=== PATIENT | female | born 1965 | race American Indian/Alaskan Native ===

== ENCOUNTER 2018-12-19 19:01 | Inpatient (IN) | payer MEDICARE, OTHER ==
[~2018-12-19] VITALS: Ht 154.9 cm; Wt 87.5 kg
--- NOTE | 2018-12-19 18:49 | NUR ---
I have received report from Aracelis QUARLES from [facility] and had the opportunity to ask questions and assume patient care. Room is set up and ready for PT arrival.
[~2018-12-19 19:01] MED LIST: ACET160S PO; ALBU18HF2 INH; DOCU50LI24 PO; ENOX40SY7 SUBCUT; FENTANYL 50 MCG/ML IV; FURO-150 IVP; LINEZOLID IV; LORAZAPAM IV; MERO1PIG IV; METO25TA6 PO; MICA100V3 IV; MYC15CR TOP; POLY17PO10 PO; SENNA PO
[2018-12-19] MEDS ORDERED: morphine 4 MG/ML inj SYRINge IV PRN (22:40)
[2018-12-19] MEDS ORDERED: ipratropium/albuterol 3ml nebule NEB PRN (22:40)
[2018-12-19] MEDS ORDERED: morphine 2 MG/ML inj. syringe IV PRN (22:40)
[2018-12-19] MEDS ORDERED: bisacodyl 10mg suppository rectal RC PRN (22:40)
[2018-12-19] MEDS ORDERED: acetaminophen 325mg tablet PO PRN (22:40)
[2018-12-19] MEDS ORDERED: acetaminophen 650mg rectal suppository RC PRN (22:40)
[2018-12-19] MEDS ORDERED: dextrose ORAL solution 15 GM/59 ML bottle PO PRN ×2 (22:50)
[2018-12-19] MEDS ORDERED: MESSAGE TO PHARMACY PO ONE (22:50)
[2018-12-19] MEDS ORDERED: naloxone 0.4 mg/ml inj IV PRN (22:50)
[2018-12-19] MEDS ORDERED: dextrose 50%-water 50ml dispensing syringe IV PRN ×2 (22:50)
[2018-12-19] MEDS ORDERED: insulin Lispro (HumaLOG) vial - multi-dose SQ SCH (22:50)
[2018-12-19 23:00] VITALS: BP 123/83
--- NOTE | 2018-12-19 23:45 | NUR ---
PT arrived to Unit via gurney at 2235, PT transported vis EMS. PT was transferred to bed and placed on bedside monitor. RT placed PT on vent. PT is trached with a Shiley #[address] Tolerating vent settings well, O2 sat >96%. PT has 2 CT's both to LT chest, CT #1 is to the anterior LT chest. CT #2 is to the posterior LT chest. PT has a J-Tube in place as well as a drain to NIRMALA with dark green drainage noted in bag, drsg's changed. PT has triple lumen PICC to the NIRMALA, Drsg changed 12/19, CDI. Personal hygiene performed and new gown placed on PT. PT had a WV drsg to Mid line ABD, WV did not get transported with PT. Drsg taken down and Wet to dry drsg placed using sterile technique. PT tolerated well. PT has multiple old drain sites to ABD with scabs present, REYNALDO. Patterson in place draining to gravity. Bed is locked and low. Call light is within reach. Will continue to monitor.
[2018-12-20] VITALS (24 sets, daily range): BP systolic 92–154; BP diastolic 51–88
[2018-12-20] MEDS ORDERED: OCTREOTIDE ACETATE 500 MCG/ML SQ SCH
[2018-12-20] MEDS ORDERED: TIGECYCLINE IV SCH ×2
[2018-12-20 00:10] LABS: ABG BASE EXCESS 1.1 mmol/L (-2.0-3.0); ABG HCO3 25.7 mmol/L (22.0-26.0); ABG OXYGEN SATURATION 96.6 % (95-98); ABG PCO2 (T) 40.5 mmHg (32.0-45.0); ALLEN'S TEST Positive; FCOHb 0.3 % (0.5-1.5); FMetHb 0.3 % (0.3-1.12); MINUTE VOLUME 10 L/min; PEEP 10 cm H2O; RESPIRATORY RATE 16 b/min; RESPIRATORY RATE (OBSERVED) 24 b/min; TIDAL VOLUME 400 mL; TOTAL HEMOGLOBIN 10.2 G/dl (12.0-16.0)
[2018-12-20] MEDS: dextrose 5%-1/2 normal saline 1,000 ML IV SCH ×2 (01:05→12:10)
[2018-12-20] MEDS: CEFTAZIDIME IV SCH ×3 (01:07→16:51)
[2018-12-20] MEDS: NORMAL SALINE IV SCH ×5 (01:07→16:51)
[2018-12-20] MEDS: AVIBACTAM IV SCH ×3 (01:07→16:51)
[2018-12-20 01:18] LABS: BASOPHILS # (AUTO) 0.1 X10'3 (0-0.2); HEMOGLOBIN 9.8 g/dl (12.0-16.0); MONOCYTES # (AUTO) 1.3 X10'3 (0-0.9)
[2018-12-20 01:20] LABS: BASOPHILS % (AUTO) 0.7 % (0-1); EOSINOPHILS % (AUTO) 0.2 % (0-6); HEMATOCRIT 29.8 % (35.0-45.0); LYMPHOCYTES # (AUTO) 1.2 X10'3 (1.1-4.8); LYMPHOCYTES % (AUTO) 9.9 % (21-51); MEAN CORPUSCULAR HEMOGLOBIN 29.7 PG (27.0-31.0); MEAN CORPUSCULAR HGB CONC 32.9 g/dL (33.0-36.5); MEAN CORPUSCULAR VOLUME 90.2 FL (78-98); MEAN PLATELET VOLUME 9.3 FL (7.4-10.4); MONOCYTES % (AUTO) 11.4 % (2-12); NEUTROPHILS # (AUTO) 9.2 X10'3 (1.8-7.7); NEUTROPHILS % (AUTO) 77.8 % (42-75); PLATELET COUNT 687 X10'3 (140-440); RED CELL DISTRIBUTION WIDTH 18.3 % (11.5-14.5); WHITE BLOOD COUNT 11.8 X10'3 (4.5-11.0)
[2018-12-20 01:24] LABS: PARTIAL THROMBOPLASTIN TIME 34 SECONDS (22-32)
[2018-12-20 01:28] LABS: ALANINE AMINOTRANSFERASE 22 U/L (12-78); ALBUMIN 1.3 G/DL (3.4-5.0); ALBUMIN/GLOBULIN RATIO 0.3 (1.1-1.5); ALKALINE PHOSPHATASE 155 IU/L (46-116); ANION GAP 7 (8-16); ASPARTATE AMINO TRANSFERASE 51 U/L (10-37); BILIRUBIN,TOTAL 0.2 MG/DL (0.1-1.0); BLOOD UREA NITROGEN 19 MG/DL (7-18); BUN/CREATININE RATIO 36.5 (6.6-38.0); CALCIUM 8.5 MG/DL (8.5-10.1); CHLORIDE 102 MMOL/L (99-107); CREATININE 0.52 MG/DL (0.40-0.90); GLUCOSE 69 MG/DL (70-104); MAGNESIUM 1.5 MG/DL (1.5-2.4); PHOSPHORUS 4.5 MG/DL (2.3-4.5); SODIUM 136 MMOL/L (135-145); TOTAL CARBON DIOXIDE 27.2 MMOL/L (24-32); TOTAL PROTEIN 5.7 G/DL (6.4-8.2); eGFR > 90 ML/MIN
[2018-12-20] MEDS: enoxaparin 100mg/ml syringe SUBCUT SCH ×3 (01:28→20:05)
[2018-12-20 01:34] LABS: HEMOGLOBIN A1C 5.8 % (4.5-6.2)
--- NOTE | 2018-12-20 02:30 | NUR ---
PT has Blood sugar of 64, 25ml of D50 given per protocol. LEAD ADVISOR Bhumi notified and D10 ordered to run @ 75ml/hr. Will continue to monitor.
[2018-12-20] MEDS: Dextrose 10%-water IV solution 1,000 ML IV SCH ×2 (02:34→15:09)
[2018-12-20] MEDS: ipratropium/albuterol 3ml nebule NEB SCH ×6 (04:00→19:20)
[2018-12-20] MEDS: TIGECYCLINE IV SCH ×2 (04:41→16:10)
--- NOTE | 2018-12-20 07:01 | NUR ---
Patient in room ICU 2039. I have received report from Jannie QUARLES and had the opportunity to ask questions and assume patient care.
--- NOTE | 2018-12-20 07:20 | NUR ---
Problems reprioritized. Patient report given, questions answered & plan of care reviewed with Holly QUARLES.
--- NOTE | 2018-12-20 08:00 | NUR ---
Patient will need a follow up CT sometime in early December before ABx is complete per Dr. Ashby.
[2018-12-20] MEDS ORDERED: Dextrose 10%-water IV solution 1,000 ML IV PRN ×2 (08:24→13:58)
[2018-12-20] MEDS ORDERED: magnesium Cl slow-release 64mg tablet PO PRN (08:25)
[2018-12-20] MEDS ORDERED: magnesium 2GM in 50ml NS 50 ML IV PRN (08:25)
[2018-12-20] MEDS ORDERED: magnesium 4gm in 100ml NS 100 ML IV PRN (08:25)
[2018-12-20] MEDS: ESOMEPRAZOLE 40 MG VIAL IV SCH (09:02)
[2018-12-20] MEDS: octreotide 200mcg/ml 5ml vial SQ SCH ×2 (09:02→16:52)
[2018-12-20] MEDS: ondansetron/PF 4mg/2ml inj IV PRN ×3 (09:22→23:29)
[2018-12-20] MEDS: HYDROmorphone 1 mg/ml syringe IV PRN ×4 (09:23→18:09)
[2018-12-20] MEDS ORDERED: NORMAL SALINE IV SCH ×3 (11:00)
[2018-12-20] MEDS ORDERED: DAPTOMYCIN IV SCH (11:00)
--- NOTE | 2018-12-20 11:00 | NUR ---
Wound care recommends Silvadene cream for DTI on back of patient's head, Dr. Singh agrees. Patient has allergy to sulfa and silvadene cream has a sulfa body; spoke to pharmacy and they recommend trying to cream on a different part of patients body and to monitor for a reaction before applying to the wound bed. Will apply cream to clear patch of skin once it is received from pharmacy.
[2018-12-20] MEDS: proCHLORperazine 10 MG/2 ml inj IV PRN ×2 (11:18→17:37)
[2018-12-20] MEDS: DAPTOmycin inj. 750 MG in normal saline 100ml IV soln 100 ML IV SCH (11:20)
--- NOTE | 2018-12-20 11:46 | NUR ---
TPN consult: Pt with significant recent PMH including hiatal hernia/esophagogastric diverticulum resection, a gastrectomy, a small bowel resection, a splenectomy, placement of a feeding J-tube, trached and with chest tube. Per RN pt with total gastrectomy so jejunum is attached to esophagus. Per H&P TF via PEGJ on hold d/t chest tube output appearing more like tube feeding formula. Per MD progress notes the plan is to continue TPN for 1-3 months with strict NPO. Per RN pt with a central line. TPN consult indicated MD would like 30 kcal/kg and 1.5 g protein/kg. 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 Discussed TPN with MD at critical care rounds who states he is okay with increasing nutrient needs if needed. Estimated nutrient needs calculated using AdjBW of 60.56 kg to better meet patient's nutrient needs with BMI of 45.6. Current dextrose running at 75 mL/hr to d/c with initiation of TPN. Recommendations below d/w pharmacy. Will continue to follow. Recommendations: 1) Continuous 2:1 TPN using Clinimix E 5/15 for 24 hours at 90 mL/hr to provide 2160 mL total volume, 108 g protein, and 324 g dextrose with dextrose load 2.12 mg/kg/min 2) Separate lipids using total of 180 mL 20% intralipids to run for 12 hours at 15 mL/hr to provide 36 g lipids 3) TPN and lipids to provide total of 1461.6 non protein kcal and 1893.6 total kcal 4) Daily weights Addendum: 12/20/18 at [address] Amended: Links added.
[2018-12-20] MEDS ORDERED: LACTC PO (12:09)
[2018-12-20] MEDS ORDERED: [UNRECOGNIZED DRUG - CODE] SQ (12:09)
[2018-12-20] MEDS ORDERED: CLON0.122 PO (12:09)
[2018-12-20] MEDS ORDERED: INSU100V43 SQ (12:09)
[2018-12-20] MEDS ORDERED: ACET160S PO (12:09)
[2018-12-20] MEDS ORDERED: CEFT2VIA29 IV (12:09)
[2018-12-20] MEDS ORDERED: TIGE50VI4 IV (12:09)
[2018-12-20] MEDS ORDERED: DAPT500V2 IV (12:09)
[2018-12-20] MEDS ORDERED: FLUC200T IV (12:09)
[2018-12-20] MEDS ORDERED: FLO0.4C PO (12:09)
[2018-12-20] MEDS ORDERED: ONDA4TAB11 PO (12:09)
[2018-12-20] MEDS ORDERED: LYR75C PO (12:09)
[2018-12-20 12:20] LABS: ALANINE AMINOTRANSFERASE 24 U/L (12-78); ALBUMIN 1.3 G/DL (3.4-5.0); ALBUMIN/GLOBULIN RATIO 0.3 (1.1-1.5); ALKALINE PHOSPHATASE 158 IU/L (46-116); ANION GAP 8 (8-16); ASPARTATE AMINO TRANSFERASE 44 U/L (10-37); BILIRUBIN,TOTAL 0.2 MG/DL (0.1-1.0); BLOOD UREA NITROGEN 17 MG/DL (7-18); BUN/CREATININE RATIO 34.7 (6.6-38.0); CHLORIDE 100 MMOL/L (99-107); CREATININE 0.49 MG/DL (0.40-0.90); FERRITIN 131 NG/ML (8-252); GLUCOSE 115 MG/DL (70-104); MAGNESIUM 1.4 MG/DL (1.5-2.4); PHOSPHORUS 4.5 MG/DL (2.3-4.5); POTASSIUM 4.4 MMOL/L (3.5-5.1); PREALBUMIN 12.9 MG/DL (19-36); SODIUM 134 MMOL/L (135-145); TOTAL CARBON DIOXIDE 25.7 MMOL/L (24-32); TOTAL PROTEIN 5.7 G/DL (6.4-8.2); TRIGLYCERIDES 131 MG/DL (20-135); eGFR > 90 ML/MIN
--- NOTE | 2018-12-20 12:49 | NUR ---
WOUND VAC EDUCATION PROVIDED BY WOUND CARE 1. Patient instructed to call the Wound Center or their Home Health Agency immediately if: * They notice a change in the color or amount of the fluid in the canister. * Their wound looks more red than usual or has a foul smell. * The skin around their wound looks reddened or irritated. * The dressing feels loose or appears to be loose. * They experience any increase or changes in their pain. * The alarm will not turn off. 2. Patient instructed that they should not be disconnected from suction for more than 2 hours at a time. * If they are not able to get the suction back on, they need to remove the dressing and take all of the foam out of the wound. * Then moisten sterile gauze with normal saline and place on/in the wound. * Change the dressing once a day until arrangements have been made to replace the wound vac dressing. 3. Patient instructed to turn the wound vac machine OFF and call 911 or go to the ED immediately if their canister fills rapidly with blood. 4. If any of these occur while in the hospital tell a nurse immediately. Addendum: 12/20/18 at 1250 by Shannon Huffman RN Amended: Links added.
--- NOTE | 2018-12-20 13:30 | NUR ---
Small amount (dime sized) silvadene applied to back of patient's right hand.
[2018-12-20] MEDS: LORazepam 2 mg/ml vial IV PRN ×2 (13:42→23:29)
[2018-12-20] MEDS: fluconazole/NS 400mg/200ml bag 200 ML IV SCH (13:45)
--- NOTE | 2018-12-20 13:52 | NUR ---
Wound consult: Per [facility] notes pt with surgical wound to abdomen and stage II PU to head. Pt strictly NPO to receiving TPN as sole source of nutrition. TPN will meet protein needs once administered and at goal rate. Will continue to follow. Addendum: 12/20/18 at [address] Amended: Links added.
[2018-12-20] MEDS ORDERED: [UNRECOGNIZED DRUG - REMARK] IV SCH ×2 (15:00)
[2018-12-20] MEDS ORDERED: [UNRECOGNIZED DRUG - REMARK] IV SCH (15:30)
[2018-12-20] MEDS: metoclopramide 5 mg/ml inj IV PRN (16:52)
[2018-12-20] MEDS: fluticasone nasal spray 16GM bottle NS PRN (17:44)
--- NOTE | 2018-12-20 18:32 | NUR ---
Problems reprioritized. Patient report given, questions answered & plan of care reviewed with Jannie QUARLES.
--- NOTE | 2018-12-20 18:35 | NUR ---
Patient in room ICU 2039. I have received report from Holly QUARLES, and had the opportunity to ask questions and assume patient care.
--- NOTE | 2018-12-20 19:45 | NUR ---
PT is trached and mechanically vented, tolerating settings well. O2 sat >97%. PT is resting comfortably with no s/s of distress noted at this time. VSS. CTx2 to left chest, drsgs are CDI. Drain bag to LUQ drsg is CDI and dark green drainage noted in bag. WV was placed today, CDI and running @ 125mmHg. Patterson in place and draining to gravity. Bed is locked and low. Call light is within reach. Will continue to monitor.
[2018-12-20] MEDS: insulin glargine (Lantus) pen - multi-dose SQ SCH (21:00)
--- NOTE | 2018-12-20 23:40 | NUR ---
PT was coughing and gaging. PT requested something for nausea as well as something for anxiety. PRN Zofran and Ativan given. Will continue to monitor.
[2018-12-21] VITALS (24 sets, daily range): BP systolic 88–144; BP diastolic 43–86
[2018-12-21] MEDS: AVIBACTAM IV SCH ×3 (01:07→16:15)
[2018-12-21] MEDS: CEFTAZIDIME IV SCH ×3 (01:07→16:15)
[2018-12-21] MEDS: NORMAL SALINE IV SCH ×5 (01:07→16:15)
[2018-12-21] MEDS: octreotide 200mcg/ml 5ml vial SQ SCH ×3 (01:09→16:54)
--- NOTE | 2018-12-21 02:30 | NUR ---
PT resting comfortably with no s/s of distress noted at this time. VSS. PT has been sleeping off and on thus far in shift. Bed is locked and low. Call light is within reach. Will continue to monitor.
[2018-12-21] MEDS ORDERED: Trace element-5 inj. 1 ML in AA 5%/cal/electrolyte-TPN/D15W 2,000 ML IV SCH (03:00)
[2018-12-21 03:01] LABS: PARTIAL THROMBOPLASTIN TIME 40 SECONDS (22-32)
[2018-12-21 03:03] LABS: ALANINE AMINOTRANSFERASE 24 U/L (12-78); ALBUMIN 1.2 G/DL (3.4-5.0); ALBUMIN/GLOBULIN RATIO 0.3 (1.1-1.5); ALKALINE PHOSPHATASE 145 IU/L (46-116); ANION GAP 8 (8-16); ASPARTATE AMINO TRANSFERASE 35 U/L (10-37); BASOPHILS # (AUTO) 0.1 X10'3 (0-0.2); BASOPHILS % (AUTO) 0.5 % (0-1); BILIRUBIN,TOTAL 0.1 MG/DL (0.1-1.0); BLOOD UREA NITROGEN 15 MG/DL (7-18); BUN/CREATININE RATIO 28.8 (6.6-38.0); CALCIUM 8.4 MG/DL (8.5-10.1); CHLORIDE 99 MMOL/L (99-107); CREATININE 0.52 MG/DL (0.40-0.90); EOSINOPHILS % (AUTO) 0.2 % (0-6); GLUCOSE 105 MG/DL (70-104); HEMATOCRIT 25.8 % (35.0-45.0); HEMOGLOBIN 8.2 g/dl (12.0-16.0); PHOSPHORUS 4.5 MG/DL (2.3-4.5); SODIUM 133 MMOL/L (135-145); TOTAL CARBON DIOXIDE 25.8 MMOL/L (24-32); TOTAL PROTEIN 5.3 G/DL (6.4-8.2); eGFR > 90 ML/MIN
[2018-12-21 03:04] LABS: LYMPHOCYTES % (AUTO) 6.2 % (21-51); MEAN CORPUSCULAR HEMOGLOBIN 29.2 PG (27.0-31.0); MEAN CORPUSCULAR HGB CONC 31.9 g/dL (33.0-36.5); MEAN CORPUSCULAR VOLUME 91.6 FL (78-98); MEAN PLATELET VOLUME 9.4 FL (7.4-10.4); MONOCYTES # (AUTO) 1.5 X10'3 (0-0.9); MONOCYTES % (AUTO) 9.5 % (2-12); NEUTROPHILS # (AUTO) 13.6 X10'3 (1.8-7.7); NEUTROPHILS % (AUTO) 83.6 % (42-75); PLATELET COUNT 730 X10'3 (140-440); RED BLOOD COUNT 2.82 X10'6 (4.20-5.60); RED CELL DISTRIBUTION WIDTH 18.5 % (11.5-14.5); WHITE BLOOD COUNT 16.2 X10'3 (4.5-11.0)
[2018-12-21] MEDS: HYDROmorphone 1 mg/ml syringe IV PRN ×6 (04:07→20:10)
[2018-12-21] MEDS: TIGECYCLINE IV SCH ×2 (04:48→15:36)
[2018-12-21 05:11] LABS: ABG HCO3 25.6 mmol/L (22.0-26.0); ABG OXYGEN SATURATION 94.9 % (95-98); ABG PCO2 (T) 41.1 mmHg (32.0-45.0); ABG PH (T) 7.413 (7.350-7.450); ABG PO2 (T) 79.3 mmHg (83-108); FCOHb 0.3 % (0.5-1.5); FMetHb 0.3 % (0.3-1.12); FO2Hb 94.3 % (94-100); MINUTE VOLUME 12 L/min; PEEP 5 cm H2O; RESPIRATORY RATE 16 b/min; RESPIRATORY RATE (OBSERVED) 25 b/min; TIDAL VOLUME 350 mL; TOTAL HEMOGLOBIN 10.2 G/dl (12.0-16.0)
--- NOTE | 2018-12-21 06:35 | NUR ---
Problems reprioritized. Patient report given, questions answered & plan of care reviewed with Holly QUARLES.
--- NOTE | 2018-12-21 06:36 | NUR ---
Patient in room ICU 2039. I have received report from Jannie QUARLES and had the opportunity to ask questions and assume patient care.
[2018-12-21] MEDS: ESOMEPRAZOLE 40 MG VIAL IV SCH (07:34)
[2018-12-21] MEDS: ondansetron/PF 4mg/2ml inj IV PRN ×3 (07:34→20:09)
[2018-12-21] MEDS: LORazepam 2 mg/ml vial IV PRN ×2 (07:34→13:11)
[2018-12-21] MEDS: enoxaparin 100mg/ml syringe SUBCUT SCH ×2 (07:35→20:10)
[2018-12-21] MEDS: silver sulfadiazine cream 400gm jar TP SCH (07:42)
--- NOTE | 2018-12-21 08:11 | NUR ---
Patient expresses feeling a little better today; anxiety more controlled and less nausea as well.
[2018-12-21 09:34] LABS: C DIFF SPECIMEN=DIARRHEA? ACCEPTABLE; C DIFFICILE TOXINS A&B NEGATIVE (Neg)
[2018-12-21 09:35] LABS: C DIFF ANTIGEN NEGATIVE (NEGATIVE)
[2018-12-21] MEDS: proCHLORperazine 10 MG/2 ml inj IV PRN ×3 (09:41→23:15)
[2018-12-21] MEDS: DAPTOmycin inj. 750 MG in normal saline 100ml IV soln 100 ML IV SCH (11:11)
[2018-12-21] MEDS: metoclopramide 5 mg/ml inj IV PRN ×3 (11:11→23:50)
--- NOTE | 2018-12-21 11:26 | NUR ---
Patient worked with physical therapy today and did well. However, when she was lying back down in the bed there was new sound coming from her anterior chest tube. Upon examination it was clear that the suture had come loose. Dressing was taken down and examined by myself and charge nurse. Patient expressed no new difficulties breathing and oxygen saturation was maintained. New vaseline gauze was applied along with sterile 4x4s and medipore tape. Tube is resecured to chest.
[2018-12-21] MEDS: fluconazole/NS 400mg/200ml bag 200 ML IV SCH (13:11)
[2018-12-21] MEDS: fat emulsion IV bag 250 ML IV SCH (15:08)
[2018-12-21] MEDS: Trace element-5 inj. 1 ML in AA 5%/cal/electrolyte-TPN/D15W 2,000 ML IV SCH (15:09)
[2018-12-21] MEDS: fluticasone nasal spray 16GM bottle NS PRN (17:03)
--- NOTE | 2018-12-21 18:25 | NUR ---
Patient in room ICU 2039. I have received report from Holly QUARLES and had the opportunity to ask questions and assume patient care. Pt resting in bed on vent via trach, fio2 at 45%.
--- NOTE | 2018-12-21 18:34 | NUR ---
Problems reprioritized. Patient report given, questions answered & plan of care reviewed with Caitlyn QUARLES.
[2018-12-21] MEDS ORDERED: lactobacillus rhamnosus 10,000 MMU CELLS/CAPSULE PO SCH (20:00)
[2018-12-21] MEDS: insulin glargine (Lantus) pen - multi-dose SQ SCH (21:00)
[2018-12-21] MEDS: VALIUM IV PRN (23:40)
[2018-12-22] VITALS (24 sets, daily range): BP systolic 95–154; BP diastolic 53–89
[2018-12-22] MEDS: HYDROmorphone 1 mg/ml syringe IV PRN ×9 (00:10→23:09)
[2018-12-22] MEDS: NORMAL SALINE IV SCH ×5 (00:18→15:54)
[2018-12-22] MEDS: AVIBACTAM IV SCH ×3 (00:18→15:54)
[2018-12-22] MEDS: CEFTAZIDIME IV SCH ×3 (00:18→15:54)
[2018-12-22] MEDS: octreotide 200mcg/ml 5ml vial SQ SCH ×2 (00:19→08:23)
[2018-12-22] MEDS: ondansetron/PF 4mg/2ml inj IV PRN ×3 (02:33→19:01)
[2018-12-22 03:38] LABS: PARTIAL THROMBOPLASTIN TIME 39 SECONDS (22-32)
[2018-12-22 03:56] LABS: BASOPHILS # (AUTO) 0.1 X10'3 (0-0.2); BASOPHILS % (AUTO) 0.4 % (0-1); MEAN CORPUSCULAR HEMOGLOBIN 28.8 PG (27.0-31.0)
[2018-12-22 03:58] LABS: ANION GAP 7 (8-16); BILIRUBIN,TOTAL 0.2 MG/DL (0.1-1.0); BLOOD UREA NITROGEN 14 MG/DL (7-18); BUN/CREATININE RATIO 34.1 (6.6-38.0); CALCIUM 8.4 MG/DL (8.5-10.1); CHLORIDE 97 MMOL/L (99-107); CREATININE 0.41 MG/DL (0.40-0.90); GLUCOSE 129 MG/DL (70-104); MAGNESIUM 1.5 MG/DL (1.5-2.4); PHOSPHORUS 3.4 MG/DL (2.3-4.5); POTASSIUM 4.2 MMOL/L (3.5-5.1); SODIUM 131 MMOL/L (135-145); TOTAL CARBON DIOXIDE 26.8 MMOL/L (24-32); TOTAL PROTEIN 5.7 G/DL (6.4-8.2); eGFR > 90 ML/MIN
[2018-12-22 03:59] LABS: ALANINE AMINOTRANSFERASE 25 U/L (12-78); ALBUMIN 1.3 G/DL (3.4-5.0); ALBUMIN/GLOBULIN RATIO 0.3 (1.1-1.5); ALKALINE PHOSPHATASE 160 IU/L (46-116); ASPARTATE AMINO TRANSFERASE 29 U/L (10-37)
[2018-12-22 04:02] LABS: EOSINOPHILS % (AUTO) 0.2 % (0-6); HEMATOCRIT 28.8 % (35.0-45.0); LYMPHOCYTES # (AUTO) 1.2 X10'3 (1.1-4.8); LYMPHOCYTES % (AUTO) 6.4 % (21-51); MEAN CORPUSCULAR HGB CONC 31.3 g/dL (33.0-36.5); MEAN CORPUSCULAR VOLUME 92.1 FL (78-98); MEAN PLATELET VOLUME 9.7 FL (7.4-10.4); MONOCYTES % (AUTO) 10.7 % (2-12); NEUTROPHILS # (AUTO) 15.4 X10'3 (1.8-7.7); NEUTROPHILS % (AUTO) 82.3 % (42-75); PLATELET COUNT 774 X10'3 (140-440); RED BLOOD COUNT 3.12 X10'6 (4.20-5.60); RED CELL DISTRIBUTION WIDTH 18.4 % (11.5-14.5); WHITE BLOOD COUNT 18.7 X10'3 (4.5-11.0)
[2018-12-22] MEDS: TIGECYCLINE IV SCH ×2 (04:26→15:53)
--- NOTE | 2018-12-22 05:00 | NUR ---
pt able to sleep through part of the night. PRN pain medication and antiemetics given per orders. anxiety medication given. pt consistently over breathing vent.
[2018-12-22] MEDS: proCHLORperazine 10 MG/2 ml inj IV PRN ×3 (05:24→23:07)
--- NOTE | 2018-12-22 06:35 | NUR ---
Problems reprioritized. Patient report given, questions answered & plan of care reviewed with Kristy QUARLES.
[2018-12-22] MEDS: ESOMEPRAZOLE 40 MG VIAL IV SCH (07:38)
[2018-12-22] MEDS: enoxaparin 100mg/ml syringe SUBCUT SCH ×2 (07:43→19:02)
[2018-12-22] MEDS: silver sulfadiazine cream 400gm jar TP SCH (07:45)
[2018-12-22 09:30] LABS: TOTAL CELLS COUNTED 100
[2018-12-22 09:36] LABS: ANISOCYTOSIS 2+; PLATELET ESTIMATE INCREASED; POLYCHROMASIA 1+
[2018-12-22 09:37] LABS: ACANTHOCYTES 1+; BURR CELLS FEW; HYPOCHROMASIA 1+; SCHISTOCYTES FEW
[2018-12-22 09:38] LABS: LARGE PLATELETS FEW
--- NOTE | 2018-12-22 09:42 | NUR ---
reassessment: Pt tolerating TPN at goal meeting intubation/wound needs. Will continue to monitor TG/PALB for adjustments as needed. Recommendations: 1) Continuous 2:1 TPN using Clinimix E 5/15 for 24 hours at 90 mL/hr to provide 2160 mL total volume, 108 g protein, and 324 g dextrose with dextrose load 2.12 mg/kg/min 2) Separate lipids using total of 180 mL 20% intralipids to run for 12 hours at 15 mL/hr to provide 36 g lipids 3) TPN and lipids to provide total of 1461.6 non protein kcal and 1893.6 total kcal 4) Daily weights Addendum: 12/22/18 at [address] Amended: Links added.
[2018-12-22] MEDS: fluticasone nasal spray 16GM bottle NS PRN (10:14)
[2018-12-22] MEDS: MVI, adult No.4 with vit. K 10 ML in normal saline 500ml IV soln 500 ML IV SCH ×2 (10:15)
[2018-12-22] MEDS: albuterol 2.5 MG/3 ML nebule NEB PRN (11:21)
[2018-12-22] MEDS: Trace element-5 inj. 1 ML in AA 5%/cal/electrolyte-TPN/D15W 2,000 ML IV SCH (11:25)
[2018-12-22] MEDS: DAPTOmycin inj. 750 MG in normal saline 100ml IV soln 100 ML IV SCH (11:31)
[2018-12-22] MEDS: VALIUM IV PRN (12:22)
[2018-12-22] MEDS: metoclopramide 5 mg/ml inj IV PRN ×2 (12:30→21:05)
[2018-12-22] MEDS: fluconazole/NS 400mg/200ml bag 200 ML IV SCH (13:24)
[2018-12-22] MEDS: fat emulsion IV bag 250 ML IV SCH (14:22)
--- NOTE | 2018-12-22 18:15 | NUR ---
Patient in room ICU 2039. I have received report from VINH QUARLES and had the opportunity to ask questions and assume patient care.
--- NOTE | 2018-12-22 19:34 | NUR ---
pt repositioned. posterior chest tube developed intermittent air leak. CONSUMER LENDER jessica notified. pt maintaining tidal volume and fio2 is at 40%. spo2 remains 94%. area around chest tube palpated, no crepitus noted. lung sounds remain course throughout bilaterally with equal bilateral chest rise and fall. pt shows no signs of distress. chest xray ordered for AM. will continue to monitor
--- NOTE | 2018-12-22 20:38 | NUR ---
pt reported not being able to catch her breath and pt became diaphoretic. md notified cxr and abg ordered
[2018-12-22] MEDS: insulin glargine (Lantus) pen - multi-dose SQ SCH (20:46)
[2018-12-22 20:50] LABS: ABG BASE EXCESS 0.4 mmol/L (-2.0-3.0); ABG HCO3 25.7 mmol/L (22.0-26.0); ABG OXYGEN SATURATION 95.2 % (95-98); ABG PCO2 (T) 44.3 mmHg (32.0-45.0); ABG PH (T) 7.381 (7.350-7.450); ABG PO2 (T) 82.3 mmHg (83-108); ALLEN'S TEST Positive; FCOHb 0.3 % (0.5-1.5); FMetHb 0.2 % (0.3-1.12); FO2Hb 94.7 % (94-100); MINUTE VOLUME 15 L/min; PEEP 5 cm H2O; RESPIRATORY RATE 16 b/min; RESPIRATORY RATE (OBSERVED) 30 b/min; TIDAL VOLUME 350 mL; TOTAL HEMOGLOBIN 10.6 G/dl (12.0-16.0)
[2018-12-22] MEDS ORDERED: HYDROmorphone 1 mg/ml syringe IV ONE (21:00)
--- NOTE | 2018-12-22 22:00 | NUR ---
pt is resting. vital signs stable. no s/s of distress or change in condition noted. will continue to monitor
[2018-12-23] VITALS (24 sets, daily range): BP systolic 90–161; BP diastolic 44–97
[2018-12-23] MEDS: AVIBACTAM IV SCH ×4 (00:10→23:46)
[2018-12-23] MEDS: NORMAL SALINE IV SCH ×6 (00:10→23:46)
[2018-12-23] MEDS: CEFTAZIDIME IV SCH ×4 (00:10→23:46)
[2018-12-23] MEDS: ondansetron/PF 4mg/2ml inj IV PRN (00:59)
[2018-12-23] MEDS: VALIUM IV PRN ×2 (01:00→22:10)
[2018-12-23] MEDS: HYDROmorphone 1 mg/ml syringe IV PRN ×7 (02:41→22:56)
[2018-12-23 03:05] LABS: BASOPHILS # (AUTO) 0.1 X10'3 (0-0.2); BASOPHILS % (AUTO) 0.3 % (0-1); EOSINOPHILS # (AUTO) 0.1 X10'3 (0-0.9); MEAN PLATELET VOLUME 9.1 FL (7.4-10.4)
[2018-12-23 03:08] LABS: EOSINOPHILS % (AUTO) 0.3 % (0-6); HEMATOCRIT 29.8 % (35.0-45.0); HEMOGLOBIN 9.5 g/dl (12.0-16.0); LYMPHOCYTES # (AUTO) 1.4 X10'3 (1.1-4.8); LYMPHOCYTES % (AUTO) 6.7 % (21-51); MEAN CORPUSCULAR HEMOGLOBIN 28.8 PG (27.0-31.0); MEAN CORPUSCULAR HGB CONC 31.8 g/dL (33.0-36.5); MEAN CORPUSCULAR VOLUME 90.6 FL (78-98); MONOCYTES % (AUTO) 9.9 % (2-12); NEUTROPHILS # (AUTO) 16.8 X10'3 (1.8-7.7); NEUTROPHILS % (AUTO) 82.8 % (42-75); PLATELET COUNT 792 X10'3 (140-440); RED BLOOD COUNT 3.29 X10'6 (4.20-5.60); RED CELL DISTRIBUTION WIDTH 17.5 % (11.5-14.5); WHITE BLOOD COUNT 20.3 X10'3 (4.5-11.0)
[2018-12-23 03:15] LABS: PARTIAL THROMBOPLASTIN TIME 42 SECONDS (22-32)
[2018-12-23] MEDS: TIGECYCLINE IV SCH ×2 (03:20→15:06)
[2018-12-23] MEDS: metoclopramide 5 mg/ml inj IV PRN ×2 (03:21→10:23)
[2018-12-23 03:23] LABS: ANION GAP 6 (8-16); BLOOD UREA NITROGEN 12 MG/DL (7-18); CHLORIDE 94 MMOL/L (99-107); CREATININE 0.34 MG/DL (0.40-0.90); GLUCOSE 107 MG/DL (70-104); POTASSIUM 4.9 MMOL/L (3.5-5.1); SODIUM 126 MMOL/L (135-145); TOTAL CARBON DIOXIDE 26.4 MMOL/L (24-32)
[2018-12-23 03:24] LABS: ALANINE AMINOTRANSFERASE 26 U/L (12-78); ALBUMIN 1.4 G/DL (3.4-5.0); ALBUMIN/GLOBULIN RATIO 0.3 (1.1-1.5); ALKALINE PHOSPHATASE 174 IU/L (46-116); ASPARTATE AMINO TRANSFERASE 29 U/L (10-37); BILIRUBIN,TOTAL 0.2 MG/DL (0.1-1.0); BUN/CREATININE RATIO 35.3 (6.6-38.0); CALCIUM 8.5 MG/DL (8.5-10.1); MAGNESIUM 1.4 MG/DL (1.5-2.4); PHOSPHORUS 4.4 MG/DL (2.3-4.5); PREALBUMIN 13.2 MG/DL (19-36); TOTAL PROTEIN 5.9 G/DL (6.4-8.2); TRIGLYCERIDES 73 MG/DL (20-135); eGFR > 90 ML/MIN
[2018-12-23] MEDS: proCHLORperazine 10 MG/2 ml inj IV PRN ×2 (05:35→20:51)
[2018-12-23] MEDS: ESOMEPRAZOLE 40 MG VIAL IV SCH (07:15)
[2018-12-23] MEDS: enoxaparin 100mg/ml syringe SUBCUT SCH ×2 (07:15→20:51)
[2018-12-23] MEDS: silver sulfadiazine cream 400gm jar TP SCH (07:16)
[2018-12-23] MEDS: Trace element-5 inj. 1 ML in AA 5%/cal/electrolyte-TPN/D15W 2,000 ML IV SCH (09:20)
[2018-12-23] MEDS: MVI, adult No.4 with vit. K 10 ML in normal saline 500ml IV soln 500 ML IV SCH ×2 (09:21)
[2018-12-23] MEDS: DAPTOmycin inj. 750 MG in normal saline 100ml IV soln 100 ML IV SCH (11:08)
[2018-12-23] MEDS: dexmedetomidin/NS 400mcg/100ml 100 ML IV SCH ×3 (12:05→21:00)
[2018-12-23 12:07] LABS: CLARITY,URINE CLEAR (Clear); COLOR,URINE STRAW (Yellow); GLUCOSE, URINE NEGATIVE (Neg); KETONES,URINE NEGATIVE (Neg); LEUKOCYTE ESTERASE ,URINE NEGATIVE (Neg); NITRITES, URINE NEGATIVE (Neg); OCCULT BLOOD,URINE NEGATIVE (Neg); PH,URINE 7.5 (4.8-8.0); PROTEIN,URINE NEGATIVE (Neg); UROBILINOGEN,URINE 0.2 E.U/dL (0.2-1.0)
[2018-12-23 12:09] LABS: UA COLLECTION TYPE FOLEY CATH
[2018-12-23] MEDS: fluconazole/NS 400mg/200ml bag 200 ML IV SCH (12:54)
[2018-12-23] MEDS: fat emulsion IV bag 180 ML IV SCH (14:05)
[2018-12-23] MEDS: TRACE ELEMENT IV SCH (14:10)
[2018-12-23] MEDS: SODIUM CHLORIDE IV SCH (14:10)
[2018-12-23] MEDS: [UNRECOGNIZED DRUG - OTHER] IV SCH (14:10)
[2018-12-23] MEDS ORDERED: lactobacillus rhamnosus 10,000 MMU CELLS/CAPSULE PO SCH (20:00)
[2018-12-23] MEDS: insulin glargine (Lantus) pen - multi-dose SQ SCH (20:51)
[2018-12-23] MEDS ORDERED: acetaminophen 325mg/10.15ml oral unit dose solution PO PRN (20:58)
[2018-12-24] VITALS (24 sets, daily range): BP systolic 89–151; BP diastolic 42–86
[2018-12-24] MEDS: diphenhydrAMINE 50 mg/ml inj IV PRN (00:28)
[2018-12-24] MEDS: metoclopramide 5 mg/ml inj IV PRN ×4 (00:29→19:35)
[2018-12-24] MEDS: HYDROmorphone 1 mg/ml syringe IV PRN ×6 (01:09→19:34)
[2018-12-24 01:21] LABS: HEMOGLOBIN 9.5 g/dl (12.0-16.0)
[2018-12-24 01:22] LABS: MEAN CORPUSCULAR HEMOGLOBIN 29.4 PG (27.0-31.0); MEAN CORPUSCULAR HGB CONC 32.6 g/dL (33.0-36.5); MEAN CORPUSCULAR VOLUME 90.2 FL (78-98); MEAN PLATELET VOLUME 9.2 FL (7.4-10.4); RED BLOOD COUNT 3.22 X10'6 (4.20-5.60); RED CELL DISTRIBUTION WIDTH 18.3 % (11.5-14.5); WHITE BLOOD COUNT 15.9 X10'3 (4.5-11.0)
[2018-12-24 01:25] LABS: BASOPHILS % (AUTO) 0.9 % (0-1); EOSINOPHILS % (AUTO) 0.5 % (0-6); LYMPHOCYTES # (AUTO) 1.3 X10'3 (1.1-4.8); LYMPHOCYTES % (AUTO) 8.5 % (21-51); MONOCYTES # (AUTO) 1.8 X10'3 (0-0.9); MONOCYTES % (AUTO) 11.5 % (2-12); NEUTROPHILS # (AUTO) 12.2 X10'3 (1.8-7.7); NEUTROPHILS % (AUTO) 78.6 % (42-75)
[2018-12-24 01:26] LABS: BASOPHILS # (AUTO) 0.1 X10'3 (0-0.2); EOSINOPHILS # (AUTO) 0.1 X10'3 (0-0.9)
[2018-12-24 01:30] LABS: ALANINE AMINOTRANSFERASE 29 U/L (12-78); ALBUMIN 1.4 G/DL (3.4-5.0); ALBUMIN/GLOBULIN RATIO 0.3 (1.1-1.5); ALKALINE PHOSPHATASE 175 IU/L (46-116); ANION GAP 6 (8-16); ASPARTATE AMINO TRANSFERASE 25 U/L (10-37); BILIRUBIN,TOTAL 0.2 MG/DL (0.1-1.0); BLOOD UREA NITROGEN 15 MG/DL (7-18); BUN/CREATININE RATIO 39.5 (6.6-38.0); CALCIUM 8.6 MG/DL (8.5-10.1); CHLORIDE 95 MMOL/L (99-107); CREATININE 0.38 MG/DL (0.40-0.90); GLUCOSE 83 MG/DL (70-104); MAGNESIUM 1.4 MG/DL (1.5-2.4); PHOSPHORUS 3.5 MG/DL (2.3-4.5); POTASSIUM 4.2 MMOL/L (3.5-5.1); SODIUM 128 MMOL/L (135-145); TOTAL CARBON DIOXIDE 27.1 MMOL/L (24-32); TOTAL PROTEIN 5.8 G/DL (6.4-8.2); eGFR > 90 ML/MIN
[2018-12-24 01:31] LABS: PARTIAL THROMBOPLASTIN TIME 37 SECONDS (22-32)
[2018-12-24 01:42] LABS: PLATELET COUNT 790 X10'3 (140-440)
[2018-12-24] MEDS: NORMAL SALINE IV SCH ×4 (03:47→15:21)
[2018-12-24] MEDS: proCHLORperazine 10 MG/2 ml inj IV PRN ×2 (03:47→16:26)
[2018-12-24] MEDS: TIGECYCLINE IV SCH ×2 (03:47→15:21)
[2018-12-24] MEDS: dexmedetomidin/NS 400mcg/100ml 100 ML IV SCH ×2 (03:50→18:52)
[2018-12-24] MEDS: ESOMEPRAZOLE 40 MG VIAL IV SCH (06:54)
[2018-12-24] MEDS: AVIBACTAM IV SCH ×2 (06:54→15:20)
[2018-12-24] MEDS: CEFTAZIDIME IV SCH ×2 (06:54→15:20)
[2018-12-24] MEDS: enoxaparin 100mg/ml syringe SUBCUT SCH ×2 (06:55→19:29)
[2018-12-24] MEDS: silver sulfadiazine cream 400gm jar TP SCH (06:56)
[2018-12-24] MEDS: MVI, adult No.4 with vit. K 10 ML in dextrose 5% water 500ml 500 ML IV SCH ×2 (09:11)
[2018-12-24] MEDS: DAPTOmycin inj. 750 MG in normal saline 100ml IV soln 100 ML IV SCH (10:32)
[2018-12-24] MEDS: fluconazole/NS 400mg/200ml bag 200 ML IV SCH (12:21)
[2018-12-24] MEDS: SODIUM CHLORIDE IV SCH (13:48)
[2018-12-24] MEDS: TRACE ELEMENT IV SCH (13:48)
[2018-12-24] MEDS: [UNRECOGNIZED DRUG - OTHER] IV SCH (13:48)
[2018-12-24] MEDS: fat emulsion IV bag 180 ML IV SCH (14:04)
[2018-12-24] MEDS: ondansetron/PF 4mg/2ml inj IV PRN (14:14)
--- NOTE | 2018-12-24 15:37 | NUR ---
Pt. tolerated Spontaneous for 4 hours. Reported shortness of breath and tachypneic to the 30s, so switched to SIMV with pressure support of 10, got tachypneic to the 40s so pressure support increased to 15. RT at bedside, pt. RR now 25. Pigtail dislodged with turn; petroleum gauze occlusive dressing placed and chest x-ray showed no change from previous (small pleural effusion). Abx continued. Dangled at bedside with PT, and able to support own weight. WBC and sodium improving. Vital signs stable. Continue with plan of care.
[2018-12-24] MEDS: VALIUM IV PRN (17:11)
--- NOTE | 2018-12-24 18:20 | NUR ---
Patient in room ICU 2039. I have received report from Jennifer QUARLES and had the opportunity to ask questions and assume patient care. Pt received on ventilator via tracheostomy # 6 Rakesh. SIMV mode TV 350 40% FIO2 rate 16 +5 PEEP PS 15. Observed TV 466. Oxygen saturation is 98%. Rhythm is sinus HR 85. Patient is awake/alert & oriented watching TV. No distress. Left triple lumen PICC line with TPN & intralipids infusing. Left chest tube to water seal with light green tinged drainage in oasis container. Left lateral pigtail chest drain is sutured in place and drainage is dark green to drainage bag. Dressings to both tubes are clean & dry. Wound vac to abdomen @ 125mm Hg. drainage is clear pale yellow tinged. Patterson cath drains clear pale yellow urine. No distress at this time.
[2018-12-24] MEDS: insulin glargine (Lantus) pen - multi-dose SQ SCH (21:00)
[2018-12-25] VITALS (24 sets, daily range): BP systolic 88–173; BP diastolic 44–89
[2018-12-25] MEDS: AVIBACTAM IV SCH ×3 (00:12→17:07)
[2018-12-25] MEDS: CEFTAZIDIME IV SCH ×3 (00:12→17:07)
[2018-12-25] MEDS: NORMAL SALINE IV SCH ×5 (00:12→17:07)
[2018-12-25] MEDS: HYDROmorphone 1 mg/ml syringe IV PRN ×5 (00:14→20:42)
--- NOTE | 2018-12-25 02:30 | NUR ---
24 HR urine collection now started.
[2018-12-25 02:41] LABS: BASOPHILS # (AUTO) 0.1 X10'3 (0-0.2); BASOPHILS % (AUTO) 0.5 % (0-1); EOSINOPHILS # (AUTO) 0.1 X10'3 (0-0.9); EOSINOPHILS % (AUTO) 0.4 % (0-6); HEMATOCRIT 26.1 % (35.0-45.0); HEMOGLOBIN 8.4 g/dl (12.0-16.0); LYMPHOCYTES # (AUTO) 1.4 X10'3 (1.1-4.8); LYMPHOCYTES % (AUTO) 7.7 % (21-51); MEAN CORPUSCULAR HEMOGLOBIN 29.2 PG (27.0-31.0); MEAN CORPUSCULAR HGB CONC 32.2 g/dL (33.0-36.5); MEAN CORPUSCULAR VOLUME 90.6 FL (78-98); MEAN PLATELET VOLUME 9.3 FL (7.4-10.4); MONOCYTES % (AUTO) 11.2 % (2-12); NEUTROPHILS # (AUTO) 14.2 X10'3 (1.8-7.7); NEUTROPHILS % (AUTO) 80.2 % (42-75); PLATELET COUNT 708 X10'3 (140-440); RED BLOOD COUNT 2.88 X10'6 (4.20-5.60); RED CELL DISTRIBUTION WIDTH 17.8 % (11.5-14.5); WHITE BLOOD COUNT 17.7 X10'3 (4.5-11.0)
[2018-12-25 02:44] LABS: PARTIAL THROMBOPLASTIN TIME 40 SECONDS (22-32)
[2018-12-25 02:51] LABS: ALANINE AMINOTRANSFERASE 22 U/L (12-78); ALBUMIN 1.2 G/DL (3.4-5.0); ALBUMIN/GLOBULIN RATIO 0.3 (1.1-1.5); ALKALINE PHOSPHATASE 156 IU/L (46-116); ANION GAP 7 (8-16); ASPARTATE AMINO TRANSFERASE 15 U/L (10-37); BILIRUBIN,TOTAL 0.2 MG/DL (0.1-1.0); BLOOD UREA NITROGEN 17 MG/DL (7-18); BUN/CREATININE RATIO 51.5 (6.6-38.0); CALCIUM 8.2 MG/DL (8.5-10.1); CHLORIDE 99 MMOL/L (99-107); CREATININE 0.33 MG/DL (0.40-0.90); GLUCOSE 105 MG/DL (70-104); MAGNESIUM 1.5 MG/DL (1.5-2.4); PHOSPHORUS 3.9 MG/DL (2.3-4.5); POTASSIUM 4.2 MMOL/L (3.5-5.1); SODIUM 131 MMOL/L (135-145); TOTAL CARBON DIOXIDE 24.8 MMOL/L (24-32); eGFR > 90 ML/MIN
[2018-12-25] MEDS: TIGECYCLINE IV SCH ×2 (03:45→16:01)
[2018-12-25] MEDS: dexmedetomidin/NS 400mcg/100ml 100 ML IV SCH ×6 (03:49→20:05)
--- NOTE | 2018-12-25 04:57 | NUR ---
Slept for long intervals during the night post Dilaudid. No distress. Chest tubes with minimal drainage, pigtail drain with dark green drainage, tubing flushed with 10ml NS. Left upper chest tube with pale green tinged drainage. Wound vac with small amount pale yellow tinged drainage. 24 Hr urine collection is in progress, urine bag on ICE.
--- NOTE | 2018-12-25 06:26 | NUR ---
Problems reprioritized. Patient report given, questions answered & plan of care reviewed with Irma QUARLES.
--- NOTE | 2018-12-25 06:30 | NUR ---
Patient in room ICU 2039. I have received report from Chela Leos RN and had the opportunity to ask questions and assume patient care.
[2018-12-25] MEDS: ondansetron/PF 4mg/2ml inj IV PRN ×2 (06:50→17:34)
--- NOTE | 2018-12-25 06:58 | NUR ---
Patient offered alternate means to control nausea and pain, patient states she still is not comfortable and continues to have nausea. Zofran and Dilaudid given due to stated pain of 7/10.
--- NOTE | 2018-12-25 07:05 | NUR ---
Patient's father, Estuardo Arevalo contacted. After obtaining permission from patient to discuss any medical information, father was updated. He has concerns about her receiving too much pain medicine due to her "past, long addiction history". I informed him that although she has the medication available to be given more frequently she is not asking for the medicine an excessive amount and that the pains he complains is in her abdomen which is were the infection is. I also informed him of subjective assessment findings I found which were tenderness at site, redness and lower she has cellulitis. No further concerns identified, all questions answered and addressed.
[2018-12-25] MEDS: silver sulfadiazine cream 400gm jar TP SCH (08:00)
--- NOTE | 2018-12-25 08:27 | NUR ---
Patient's silvadene cream ordered to back of patient's head once per day, dressing last changed by Chela Leos RN approximately 0430 as stated by nurse. Non administered med on eMAR although medicine reportedly given this morning. Wound CDI.
--- NOTE | 2018-12-25 08:28 | NUR ---
Dressing changed by Chela Leos RN stated at approximately 0430. Viewed wound, CDI, dressing CDI. No errythema. Continue current plan. Addendum: 12/25/18 at 0834 by Irma Patterson RN Amended: Links added.
[2018-12-25] MEDS ORDERED: magnesium 4gm in 100ml NS 100 ML IV PRN (08:40)
[2018-12-25] MEDS ORDERED: potassium Cl 20mEq/100mL bag 100 ML IV PRN (08:40)
[2018-12-25] MEDS: VALIUM IV PRN (08:48)
[2018-12-25] MEDS: enoxaparin 100mg/ml syringe SUBCUT SCH ×2 (08:53→20:04)
[2018-12-25] MEDS: ESOMEPRAZOLE 40 MG VIAL IV SCH (08:53)
--- NOTE | 2018-12-25 10:15 | NUR ---
Updated Dr. Castillo during CRITICAL CARE ROUNDS as well as multidisciplinary team. Dr. Castillo aware that patient has a leak to her left upper chest tube, that WBC's are 17.7 and higher from yesterday but less than the day prior. Platelets 708 and receiving lovenox, splenectomy history. Na 131, up from prior day. Continue to not use the PEG tube. Only one chest tube, other 'accidentally' removed 12/24. Continue TPN, discontinue compazine, start zyprexa, decrease dilaudid dose daily. Eventually patient will go back to [facility] for rehab.
[2018-12-25] MEDS: DAPTOmycin inj. 750 MG in normal saline 100ml IV soln 100 ML IV SCH (11:20)
[2018-12-25] MEDS: SODIUM CHLORIDE IV SCH (11:20)
[2018-12-25] MEDS: [UNRECOGNIZED DRUG - OTHER] IV SCH (11:20)
[2018-12-25] MEDS: TRACE ELEMENT IV SCH (11:20)
[2018-12-25] MEDS: MVI, adult No.4 with vit. K 10 ML in dextrose 5% water 500ml 500 ML IV SCH ×2 (11:20)
--- NOTE | 2018-12-25 11:32 | NUR ---
reassessment: Pt tolerating TPN at goal meeting intubation/wound needs. LBM 12/23 on reglan. Pt highly anxious per RN/MD and does have seeking behavior hx per RN at rounds. One CT is now out and minimal drainage from upper CT today per RN. Still to remain strict NPO per MD. Will continue to monitor TG/PALB for adjustments as needed. Recommendations: 1) Continuous 2:1 TPN using Clinimix E 5/15 for 24 hours at 90 mL/hr to provide 2160 mL total volume, 108 g protein, and 324 g dextrose with dextrose load 2.12 mg/kg/min 2) Separate lipids using total of 180 mL 20% intralipids to run for 12 hours at 15 mL/hr to provide 36 g lipids 3) TPN and lipids to provide total of 1461.6 non protein kcal and 1893.6 total kcal 4) Daily weights Addendum: 12/25/18 at [address] Amended: Links added.
--- NOTE | 2018-12-25 12:27 | NUR ---
WOUND VAC EDUCATION PROVIDED BY WOUND CARE 1. Patient instructed to call the Wound Center or their Home Health Agency immediately if: * They notice a change in the color or amount of the fluid in the canister. * Their wound looks more red than usual or has a foul smell. * The skin around their wound looks reddened or irritated. * The dressing feels loose or appears to be loose. * They experience any increase or changes in their pain. * The alarm will not turn off. 2. Patient instructed that they should not be disconnected from suction for more than 2 hours at a time. * If they are not able to get the suction back on, they need to remove the dressing and take all of the foam out of the wound. * Then moisten sterile gauze with normal saline and place on/in the wound. * Change the dressing once a day until arrangements have been made to replace the wound vac dressing. 3. Patient instructed to turn the wound vac machine OFF and call 911 or go to the ED immediately if their canister fills rapidly with blood. 4. If any of these occur while in the hospital tell a nurse immediately. Addendum: 12/25/18 at 1228 by Shannon Huffman RN Amended: Links added.
[2018-12-25] MEDS: fluconazole/NS 400mg/200ml bag 200 ML IV SCH (13:42)
[2018-12-25] MEDS: fat emulsion IV bag 180 ML IV SCH (15:59)
--- NOTE | 2018-12-25 18:30 | NUR ---
Patient in room ICU 2039. I have received report from Irma QUARLES and had the opportunity to ask questions and assume patient care.
--- NOTE | 2018-12-25 18:47 | NUR ---
Problems reprioritized. Patient report given, questions answered & plan of care reviewed with Drake Villela RN.
--- NOTE | 2018-12-25 19:16 | NUR ---
Pt laying in bed, watching TV. Pt is calm and alert. All lines and tubes checked. Meds checked. Trach has been suctioned. Pt's temp is 37.6C, she is feeling hot so a cold wash cloth has been placed on her yarsani. Pt has been turned and her skin checked. She has refused pillows to be placed under her arms and legs, but she does have two pillows under her side to shift weight. Pt's vitals: BP 140/83, HR 85 NSR, RR 33, O2 sat 97%, Pain 3.
[2018-12-25] MEDS: OLANZapine **IM** 10 mg inj. IM SCH (20:41)
[2018-12-25] MEDS: insulin glargine (Lantus) pen - multi-dose SQ SCH (20:49)
[2018-12-26] VITALS (24 sets, daily range): BP systolic 85–155; BP diastolic 45–93
[2018-12-26] MEDS: CEFTAZIDIME IV SCH ×3 (01:06→16:04)
[2018-12-26] MEDS: AVIBACTAM IV SCH ×3 (01:06→16:04)
[2018-12-26] MEDS: NORMAL SALINE IV SCH ×5 (01:06→16:04)
[2018-12-26] MEDS: HYDROmorphone 1 mg/ml syringe IV PRN ×6 (01:43→21:41)
[2018-12-26] MEDS: dexmedetomidin/NS 400mcg/100ml 100 ML IV SCH ×4 (02:01→21:10)
[2018-12-26 03:01] LABS: BASOPHILS # (AUTO) 0.1 X10'3 (0-0.2); BASOPHILS % (AUTO) 0.6 % (0-1); EOSINOPHILS # (AUTO) 0.1 X10'3 (0-0.9); EOSINOPHILS % (AUTO) 0.4 % (0-6); LYMPHOCYTES # (AUTO) 1.7 X10'3 (1.1-4.8); MEAN PLATELET VOLUME 9.2 FL (7.4-10.4); MONOCYTES # (AUTO) 2.4 X10'3 (0-0.9); NEUTROPHILS % (AUTO) 76.5 % (42-75); RED BLOOD COUNT 3.22 X10'6 (4.20-5.60)
[2018-12-26 03:02] LABS: HEMOGLOBIN 9.5 g/dl (12.0-16.0); LYMPHOCYTES % (AUTO) 9.6 % (21-51); MEAN CORPUSCULAR HEMOGLOBIN 29.4 PG (27.0-31.0); MEAN CORPUSCULAR HGB CONC 32.6 g/dL (33.0-36.5); MONOCYTES % (AUTO) 12.9 % (2-12); PLATELET COUNT 830 X10'3 (140-440); RED CELL DISTRIBUTION WIDTH 18.3 % (11.5-14.5); WHITE BLOOD COUNT 18.3 X10'3 (4.5-11.0)
[2018-12-26 03:12] LABS: PARTIAL THROMBOPLASTIN TIME 42 SECONDS (22-32)
[2018-12-26 03:15] LABS: ALANINE AMINOTRANSFERASE 22 U/L (12-78); ALBUMIN 1.4 G/DL (3.4-5.0); ALBUMIN/GLOBULIN RATIO 0.3 (1.1-1.5); ALKALINE PHOSPHATASE 177 IU/L (46-116); ANION GAP 7 (8-16); ASPARTATE AMINO TRANSFERASE 14 U/L (10-37); BILIRUBIN,TOTAL 0.2 MG/DL (0.1-1.0); BLOOD UREA NITROGEN 13 MG/DL (7-18); BUN/CREATININE RATIO 38.2 (6.6-38.0); CALCIUM 8.6 MG/DL (8.5-10.1); CHLORIDE 100 MMOL/L (99-107); CREATINE KINASE 25 U/L (26-192); CREATININE 0.34 MG/DL (0.40-0.90); GLUCOSE 95 MG/DL (70-104); MAGNESIUM 1.5 MG/DL (1.5-2.4); PHOSPHORUS 3.7 MG/DL (2.3-4.5); POTASSIUM 4.1 MMOL/L (3.5-5.1); PREALBUMIN 12.9 MG/DL (19-36); SODIUM 130 MMOL/L (135-145); TOTAL CARBON DIOXIDE 22.9 MMOL/L (24-32); TOTAL PROTEIN 5.5 G/DL (6.4-8.2); TRIGLYCERIDES 64 MG/DL (20-135); eGFR > 90 ML/MIN
[2018-12-26 03:26] LABS: UREA NITROGEN 24HR,URINE 20.8 GM/24HR (7-20)
[2018-12-26] MEDS: TIGECYCLINE IV SCH ×2 (03:56→15:19)
[2018-12-26] MEDS: ondansetron/PF 4mg/2ml inj IV PRN ×2 (07:42→15:21)
[2018-12-26] MEDS: ESOMEPRAZOLE 40 MG VIAL IV SCH (07:42)
[2018-12-26] MEDS: silver sulfadiazine cream 400gm jar TP SCH (07:43)
[2018-12-26] MEDS: enoxaparin 100mg/ml syringe SUBCUT SCH ×2 (07:43→20:12)
[2018-12-26] MEDS: diazepam inj 5 MG/ML inj. IV PRN (07:50)
[2018-12-26] MEDS: MVI, adult No.4 with vit. K 10 ML in dextrose 5% water 500ml 500 ML IV SCH ×2 (09:45)
[2018-12-26] MEDS: TRACE ELEMENT IV SCH (09:45)
[2018-12-26] MEDS: [UNRECOGNIZED DRUG - OTHER] IV SCH (09:45)
[2018-12-26] MEDS: SODIUM CHLORIDE IV SCH (09:45)
[2018-12-26] MEDS: DAPTOmycin inj. 750 MG in normal saline 100ml IV soln 100 ML IV SCH (11:18)
[2018-12-26] MEDS: fluconazole/NS 400mg/200ml bag 200 ML IV SCH (12:44)
--- NOTE | 2018-12-26 13:30 | NUR ---
Per Dr. Singh's request, attempted breathing exercises with the patient to help reduce patient's respiratory rate from the upper 20s to <20 while on spontaneous; however, no change in respiratory rate. Patient kept on spontaneous with Dr. Singh's requested PEEP/Pressure support of 5/10. Also, attempting to obtain pleural fluid from chest tube for culture; however, decreased drainage and unable to obtain an adequate sample; MD aware of decreased output and difficulty obtaining sample. Will continue to try and obtain pleural sample.
[2018-12-26] MEDS: fat emulsion IV bag 180 ML IV SCH (14:45)
[2018-12-26 17:56] LABS: AMYLASE,BODY FLUID 12 U/L; TOTAL PROTEIN,BODY FLUID 2.3 G/DL
--- NOTE | 2018-12-26 18:39 | NUR ---
Problems reprioritized. Patient report given, questions answered & plan of care reviewed with Drake QUARLES.
[2018-12-26] MEDS: OLANZapine **IM** 10 mg inj. IM SCH (20:12)
[2018-12-26] MEDS: insulin glargine (Lantus) pen - multi-dose SQ SCH (20:13)
[2018-12-27] VITALS (24 sets, daily range): BP systolic 67–163; BP diastolic 30–91
[2018-12-27] MEDS: dexmedetomidin/NS 400mcg/100ml 100 ML IV SCH ×5 (00:45→23:29)
[2018-12-27] MEDS: AVIBACTAM IV SCH ×3 (00:55→16:06)
[2018-12-27] MEDS: NORMAL SALINE IV SCH ×5 (00:55→16:06)
[2018-12-27] MEDS: CEFTAZIDIME IV SCH ×3 (00:55→16:06)
[2018-12-27] MEDS: HYDROmorphone 1 mg/ml syringe IV PRN ×5 (02:32→18:02)
[2018-12-27 02:59] LABS: EOSINOPHILS # (AUTO) 0.1 X10'3 (0-0.9); MEAN CORPUSCULAR VOLUME 91.6 FL (78-98)
[2018-12-27 03:00] LABS: BASOPHILS # (AUTO) 0.1 X10'3 (0-0.2); BASOPHILS % (AUTO) 0.8 % (0-1); EOSINOPHILS % (AUTO) 0.6 % (0-6); HEMOGLOBIN 9.3 g/dl (12.0-16.0); LYMPHOCYTES # (AUTO) 1.8 X10'3 (1.1-4.8); LYMPHOCYTES % (AUTO) 10.2 % (21-51); MEAN CORPUSCULAR HEMOGLOBIN 29.2 PG (27.0-31.0); MEAN CORPUSCULAR HGB CONC 31.9 g/dL (33.0-36.5); MEAN PLATELET VOLUME 8.7 FL (7.4-10.4); MONOCYTES % (AUTO) 11.6 % (2-12); NEUTROPHILS # (AUTO) 13.4 X10'3 (1.8-7.7); NEUTROPHILS % (AUTO) 76.8 % (42-75); PLATELET COUNT 840 X10'3 (140-440); RED BLOOD COUNT 3.16 X10'6 (4.20-5.60); RED CELL DISTRIBUTION WIDTH 17.9 % (11.5-14.5); WHITE BLOOD COUNT 17.4 X10'3 (4.5-11.0)
[2018-12-27 03:08] LABS: PLEURAL FLUID PH 7.038 (7.63-7.65)
[2018-12-27 03:09] LABS: ALANINE AMINOTRANSFERASE 21 U/L (12-78); ALBUMIN 1.3 G/DL (3.4-5.0); ALBUMIN/GLOBULIN RATIO 0.3 (1.1-1.5); ALKALINE PHOSPHATASE 180 IU/L (46-116); ANION GAP 7 (8-16); ASPARTATE AMINO TRANSFERASE 18 U/L (10-37); BILIRUBIN,TOTAL 0.2 MG/DL (0.1-1.0); BLOOD UREA NITROGEN 14 MG/DL (7-18); BUN/CREATININE RATIO 35.9 (6.6-38.0); CALCIUM 8.2 MG/DL (8.5-10.1); CHLORIDE 97 MMOL/L (99-107); CREATININE 0.39 MG/DL (0.40-0.90); GLUCOSE 91 MG/DL (70-104); MAGNESIUM 1.5 MG/DL (1.5-2.4); PHOSPHORUS 3.9 MG/DL (2.3-4.5); POTASSIUM 3.9 MMOL/L (3.5-5.1); SODIUM 128 MMOL/L (135-145); TOTAL CARBON DIOXIDE 23.6 MMOL/L (24-32); TOTAL PROTEIN 5.3 G/DL (6.4-8.2); eGFR > 90 ML/MIN
[2018-12-27 03:09] LABS: BFSOURCE LEFT PLEURAL FLD
[2018-12-27 03:11] LABS: % IRON SATURATION 10 % (11-46); IRON 21 UG/DL (49-151); TOTAL IRON BINDING CAPACITY 207 UG/DL (259-388)
[2018-12-27 03:13] LABS: PARTIAL THROMBOPLASTIN TIME 40 SECONDS (22-32)
[2018-12-27] MEDS: TIGECYCLINE IV SCH ×2 (04:27→15:20)
[2018-12-27] MEDS: metoclopramide 5 mg/ml inj IV PRN (07:58)
[2018-12-27] MEDS: ESOMEPRAZOLE 40 MG VIAL IV SCH (07:58)
[2018-12-27] MEDS: silver sulfadiazine cream 400gm jar TP SCH (07:59)
[2018-12-27] MEDS: enoxaparin 100mg/ml syringe SUBCUT SCH ×2 (07:59→20:22)
[2018-12-27] MEDS: TRACE ELEMENT IV SCH (09:07)
[2018-12-27] MEDS: [UNRECOGNIZED DRUG - OTHER] IV SCH (09:07)
[2018-12-27] MEDS: SODIUM CHLORIDE IV SCH (09:07)
[2018-12-27] MEDS: diazepam inj 5 MG/ML inj. IV PRN (09:16)
[2018-12-27] MEDS: MVI, adult No.4 with vit. K 10 ML in dextrose 5% water 500ml 500 ML IV SCH ×2 (09:16)
[2018-12-27] MEDS: famotidine/PF 10 mg/ml inj IV SCH ×2 (10:47→20:21)
[2018-12-27] MEDS: DAPTOmycin inj. 750 MG in normal saline 100ml IV soln 100 ML IV SCH (11:12)
[2018-12-27] MEDS: sodium ferric gluc complex inj 125 MG in normal saline 100ml IV soln 100 ML IV SCH (11:41)
[2018-12-27] MEDS: fluconazole/NS 400mg/200ml bag 200 ML IV SCH (12:36)
--- NOTE | 2018-12-27 12:40 | NUR ---
Dr. Singh at bedside and aware patient hypertensive with SBP in the 160s and tachycardic with HR in the 90s; MD okay as patient just placed on Passy-Dmitri and tolerating well at 99% on 30% FiO2. Also, MD aware of patient's edema; orders for BID Lasix and to decrease fluid administration if possible.
--- NOTE | 2018-12-27 12:46 | NUR ---
Wound care contacted about debridement of abd wound: Dr. Singh would like to schedule with inpatient wound care to debride the wound on Saturday 12/30 at 0900. Wound RN aware and will call Dr. Singh in the AM on Sunday.
--- NOTE | 2018-12-27 13:13 | NUR ---
reassessment: Pt tolerating TPN at goal meeting intubation/wound needs. Strict NPO per MD due to leak at esophageal jejunal anastomosis site. Pt with significant recent PMH including hiatal hernia/esophagogastric diverticulum resection, a gastrectomy, a small bowel resection, a splenectomy, placement of a feeding J-tube, trached and with chest tube and gastrojejunostomy with leak at anastomosis site. Will continue to monitor TG/PALB for adjustments as needed. Pt with increased protein needs r/t recent surgical procedures. Estimated nutrient needs calculated using AdjBW of 60.56 kg to better meet patient's nutrient needs with BMI of 45.6. Will continue to follow. Recommendations: 1) Continuous 2:1 TPN using Clinimix E /15 for 24 hours increase to 100 mL/hr to provide adequate protein and calories: 2400 mL total volume, 120 g protein, and 360 g dextrose with dextrose load 2.45 mg/kg/min; discussed with MD to meet 35 kcal/kg and discussed with RN and Pharmacy 2) Separate lipids using total of 180 mL 20% intralipids to run for 12 hours at 15 mL/hr to provide 36 g lipids 3) TPN and lipids to provide total of 1584 non protein kcal and 2064 total kcal 4) Daily weights Addendum: 12/27/18 at [address] Amended: Links added.
[2018-12-27] MEDS: furosemide 40mg/4ml inj IV SCH ×2 (13:16→20:21)
[2018-12-27] MEDS: fat emulsion IV bag 180 ML IV SCH (15:20)
--- NOTE | 2018-12-27 18:30 | NUR ---
Patient in room ICU 2039. I have received report from Elmer QUARLES and had the opportunity to ask questions and assume patient care.
--- NOTE | 2018-12-27 18:38 | NUR ---
Problems reprioritized. Patient report given, questions answered & plan of care reviewed with Drake QUARLES.
--- NOTE | 2018-12-27 19:00 | NUR ---
Pt is extremely anxious. Says she is feeling like she is having a panic attack. Noticed that her Tidal Volumes are in the mid 300s instead of the 500s as they are supposed to be. Called RT. In the meantime, Precedex Gtt has been increased from 0.2 to 0.4 (this might cause her BP to drop as this has happened on a prior shift when her Precedex was at 0.7).
[2018-12-27] MEDS: OLANZapine **IM** 10 mg inj. IM SCH (20:21)
--- NOTE | 2018-12-27 20:30 | NUR ---
Pt is still feeling anxious, but is no longer feeling like she is having a panic attack. RT has been spoken too, as it seems that the ventilator is still not giving the expected Tidal Volumes. RT will reassess the ventilator and trach.
[2018-12-27] MEDS: insulin glargine (Lantus) pen - multi-dose SQ SCH (20:35)
--- NOTE | 2018-12-27 21:00 | NUR ---
Pt had 850ml output of urine over the last hour, from Lasix push.
--- NOTE | 2018-12-27 22:00 | NUR ---
Pt is sleeping deeply. BP is showing 67/30, from a previous BP of 98/55. Precedex is probably causing this problem again, will decrease rate back down to 0.2 and wake up Pt to see if her BP rises while she is awake.
[2018-12-27] MEDS ORDERED: albumin (human) 25% 100 ML IV solution IV ONE (23:05)
--- NOTE | 2018-12-27 23:30 | NUR ---
Pt's BP did rise when she was awake, but only to a MAP in the mid-50s. As soon as the patient wasn't being spoken to, she would quickly fall back asleep and her BP would fall back down to 60s/30s. Pt was given a bolus of 250ml NS, which did not increase her BP. David Cardoso MANAGER AIR was called and he ordered 200ml of Albumin 25% to be given and reassess. First bottle has been started.
[2018-12-28] VITALS (24 sets, daily range): BP systolic 67–165; BP diastolic 33–97
[2018-12-28] MEDS: NORMAL SALINE IV SCH ×6 (00:39→23:41)
[2018-12-28] MEDS: AVIBACTAM IV SCH ×4 (00:39→23:41)
[2018-12-28] MEDS: CEFTAZIDIME IV SCH ×4 (00:39→23:41)
[2018-12-28] MEDS: TIGECYCLINE IV SCH ×2 (03:15→15:50)
[2018-12-28] MEDS: HYDROmorphone 1 mg/ml syringe IV PRN ×6 (03:25→21:52)
[2018-12-28 03:32] LABS: BASOPHILS # (AUTO) 0.1 X10'3 (0-0.2); BASOPHILS % (AUTO) 0.7 % (0-1)
[2018-12-28 03:34] LABS: EOSINOPHILS # (AUTO) 0.1 X10'3 (0-0.9); EOSINOPHILS % (AUTO) 0.5 % (0-6); HEMATOCRIT 25.4 % (35.0-45.0); HEMOGLOBIN 8.4 g/dl (12.0-16.0); LYMPHOCYTES % (AUTO) 6.4 % (21-51); MEAN CORPUSCULAR HEMOGLOBIN 30.1 PG (27.0-31.0); MEAN CORPUSCULAR HGB CONC 32.9 g/dL (33.0-36.5); MEAN CORPUSCULAR VOLUME 91.3 FL (78-98); MEAN PLATELET VOLUME 8.2 FL (7.4-10.4); MONOCYTES # (AUTO) 2.4 X10'3 (0-0.9); MONOCYTES % (AUTO) 16.4 % (2-12); NEUTROPHILS # (AUTO) 11.3 X10'3 (1.8-7.7); PLATELET COUNT 717 X10'3 (140-440); RED BLOOD COUNT 2.78 X10'6 (4.20-5.60); RED CELL DISTRIBUTION WIDTH 18.2 % (11.5-14.5); WHITE BLOOD COUNT 14.9 X10'3 (4.5-11.0)
--- NOTE | 2018-12-28 03:37 | NUR ---
Pt is awake and calm, BP has returned to normal 118/68.
[2018-12-28 03:45] LABS: ALANINE AMINOTRANSFERASE 22 U/L (12-78); ALBUMIN 2.1 G/DL (3.4-5.0); ALBUMIN/GLOBULIN RATIO 0.7 (1.1-1.5); ALKALINE PHOSPHATASE 147 IU/L (46-116); ANION GAP 6 (8-16); ASPARTATE AMINO TRANSFERASE 16 U/L (10-37); BILIRUBIN,TOTAL 0.2 MG/DL (0.1-1.0); BLOOD UREA NITROGEN 21 MG/DL (7-18); BUN/CREATININE RATIO 41.2 (6.6-38.0); CALCIUM 8.5 MG/DL (8.5-10.1); CHLORIDE 99 MMOL/L (99-107); CREATININE 0.51 MG/DL (0.40-0.90); GLUCOSE 92 MG/DL (70-104); MAGNESIUM 1.4 MG/DL (1.5-2.4); PHOSPHORUS 4.3 MG/DL (2.3-4.5); POTASSIUM 3.7 MMOL/L (3.5-5.1); SODIUM 132 MMOL/L (135-145); TOTAL CARBON DIOXIDE 26.7 MMOL/L (24-32); TOTAL PROTEIN 5.3 G/DL (6.4-8.2); eGFR > 90 ML/MIN
[2018-12-28 04:27] LABS: PARTIAL THROMBOPLASTIN TIME 47 SECONDS (22-32)
[2018-12-28] MEDS: ondansetron/PF 4mg/2ml inj IV PRN (04:43)
[2018-12-28] MEDS: [UNRECOGNIZED DRUG - OTHER] IV SCH (04:56)
[2018-12-28] MEDS: SODIUM CHLORIDE IV SCH (04:56)
[2018-12-28] MEDS: TRACE ELEMENT IV SCH (04:56)
[2018-12-28] MEDS: magnesium 2GM in 50ml NS 50 ML IV PRN (05:52)
--- NOTE | 2018-12-28 06:19 | NUR ---
Problems reprioritized. Patient report given, questions answered & plan of care reviewed with Elmer QUARLES.
[2018-12-28] MEDS: sodium ferric gluc complex inj 125 MG in normal saline 100ml IV soln 100 ML IV SCH (06:57)
[2018-12-28] MEDS: dexmedetomidin/NS 400mcg/100ml 100 ML IV SCH ×4 (07:33→21:31)
[2018-12-28] MEDS: enoxaparin 100mg/ml syringe SUBCUT SCH ×2 (07:35→20:26)
[2018-12-28] MEDS: famotidine/PF 10 mg/ml inj IV SCH ×2 (07:35→20:26)
[2018-12-28] MEDS: furosemide 40mg/4ml inj IV SCH (08:00)
[2018-12-28] MEDS: diazepam inj 5 MG/ML inj. IV PRN ×2 (08:53→17:44)
[2018-12-28] MEDS: MVI, adult No.4 with vit. K 10 ML in normal saline 500ml IV soln 500 ML IV SCH ×2 (10:04)
[2018-12-28] MEDS: metoclopramide 5 mg/ml inj IV PRN ×2 (10:22→19:15)
[2018-12-28 10:41] LABS: BFAPPEAR CLOUDY; LYMPHOCYTES,BODY FLUID 6 %; MONOCYTES,BODY FLUID 5 %; NEUTROPHILS,BODY FLUID 89 %
[2018-12-28 10:42] LABS: BF RBC COUNT 575 /CU MM; BF WBC COUNT 9250 /CU MM (0-1000); BFCOLOR YELLOW; BFVOLUME 10 ML
[2018-12-28] MEDS: DAPTOmycin inj. 750 MG in normal saline 100ml IV soln 100 ML IV SCH (11:44)
[2018-12-28 11:56] LABS: LYMPHOCYTES,BODY FLUID 2 %; MONOCYTES,BODY FLUID 4 %; NEUTROPHILS,BODY FLUID 94 %
[2018-12-28 11:57] LABS: BF RBC COUNT 150 /CU MM; BF WBC COUNT 16600 /CU MM (0-1000); BFAPPEAR TURBID; BFCOLOR GREEN; BFVOLUME 7 ML
[2018-12-28] MEDS: fluconazole/NS 400mg/200ml bag 200 ML IV SCH (13:18)
[2018-12-28] MEDS: fat emulsion IV bag 180 ML IV SCH (14:46)
--- NOTE | 2018-12-28 16:00 | NUR ---
Patient transferred from [address] Singh's wishes as patient has a hx of depression and anxiety; with hopes that this will help. Dr. Tellez from infection controlled consulted on the move and okay to transfer. Patient transferred to new room with all belongings, isolated maintained with isolation cart outside of room.
--- NOTE | 2018-12-28 17:37 | NUR ---
Refusing bed baths throughout the day from multiple staff members; reports she is too tired. Patient also refusing turns at times reporting that she "just got comfortable." Patient educated on the importance of freq turns and skin care.
--- NOTE | 2018-12-28 18:33 | NUR ---
Problems reprioritized. Patient report given, questions answered & plan of care reviewed with Michel QUARLES.
[2018-12-28] MEDS: insulin glargine (Lantus) pen - multi-dose SQ SCH (21:00)
[2018-12-28] MEDS: OLANZapine **IM** 10 mg inj. IM SCH (21:29)
[2018-12-28] MEDS: diphenhydrAMINE 50 mg/ml inj IV PRN (21:52)
[2018-12-29] VITALS (25 sets, daily range): BP systolic 80–160; BP diastolic 37–100
[2018-12-29] MEDS: [UNRECOGNIZED DRUG - OTHER] IV SCH ×2 (01:18→20:54)
[2018-12-29] MEDS: TRACE ELEMENT IV SCH ×2 (01:18→20:54)
[2018-12-29] MEDS: SODIUM CHLORIDE IV SCH ×2 (01:18→20:54)
[2018-12-29] MEDS: HYDROmorphone 1 mg/ml syringe IV PRN ×8 (01:56→23:58)
[2018-12-29] MEDS: ondansetron/PF 4mg/2ml inj IV PRN ×2 (02:14→17:50)
[2018-12-29] MEDS: metoclopramide 5 mg/ml inj IV PRN (03:29)
[2018-12-29] MEDS: TIGECYCLINE IV SCH ×2 (04:37→16:18)
[2018-12-29] MEDS: NORMAL SALINE IV SCH ×5 (04:37→23:44)
[2018-12-29] MEDS: dexmedetomidin/NS 400mcg/100ml 100 ML IV SCH (04:38)
--- NOTE | 2018-12-29 06:30 | NUR ---
Patient in room ICU 2043. I have received report from ROBINA Pearson and had the opportunity to ask questions and assume patient care.
[2018-12-29] MEDS: CEFTAZIDIME IV SCH ×3 (07:45→23:44)
[2018-12-29] MEDS: famotidine/PF 10 mg/ml inj IV SCH ×2 (07:45→19:45)
[2018-12-29] MEDS: AVIBACTAM IV SCH ×3 (07:45→23:44)
[2018-12-29] MEDS: enoxaparin 100mg/ml syringe SUBCUT SCH ×2 (07:46→19:45)
[2018-12-29] MEDS: sodium ferric gluc complex inj 125 MG in normal saline 100ml IV soln 100 ML IV SCH (08:38)
[2018-12-29] MEDS: diazepam inj 5 MG/ML inj. IV PRN (08:55)
[2018-12-29] MEDS: MVI, adult No.4 with vit. K 10 ML in normal saline 500ml IV soln 500 ML IV SCH ×2 (09:54)
[2018-12-29] MEDS: DAPTOmycin inj. 750 MG in normal saline 100ml IV soln 100 ML IV SCH (10:42)
[2018-12-29] MEDS: LORazepam 2 mg/ml vial IV PRN ×2 (13:28→19:26)
[2018-12-29] MEDS: fluconazole/NS 400mg/200ml bag 200 ML IV SCH (13:57)
[2018-12-29] MEDS: fat emulsion IV bag 180 ML IV SCH (14:01)
--- NOTE | 2018-12-29 16:44 | NUR ---
pt maintained saturation of 95-98% for duration of tpiece trial on 30% fio2 from [id number] approx 3.5 hrs with no complaints. pt reports feeling a lot more confident re her respiratory status
--- NOTE | 2018-12-29 18:02 | NUR ---
Pt had uneventful day. Dangled with PT, tolerated well. Refused a second dangle. T piece/ trachmist x 3 1/2 hrs. Pt became mildly tachycardic following trachmist trials. Currently on spontaneous mode on ventilator. Tolerating TPN well, normoglycemic. Pt reports that ativan is effective for anxiety.
--- NOTE | 2018-12-29 18:15 | NUR ---
Problems reprioritized. Patient report given, questions answered & plan of care reviewed with ROBINA Pearson.
[2018-12-29] MEDS: OLANZapine **IM** 10 mg inj. IM SCH (20:53)
[2018-12-29] MEDS: insulin glargine (Lantus) pen - multi-dose SQ SCH (20:54)
[2018-12-29] MEDS: diphenhydrAMINE 50 mg/ml inj IV PRN (21:26)
[2018-12-30] VITALS (24 sets, daily range): BP systolic 90–159; BP diastolic 36–94
[2018-12-30] MEDS: HYDROmorphone 1 mg/ml syringe IV PRN ×7 (02:13→20:27)
[2018-12-30] MEDS: ondansetron/PF 4mg/2ml inj IV PRN ×3 (02:13→17:47)
[2018-12-30 02:48] LABS: BASOPHILS # (AUTO) 0.2 X10'3 (0-0.2); BASOPHILS % (AUTO) 1.1 % (0-1); EOSINOPHILS # (AUTO) 0.1 X10'3 (0-0.9); HEMOGLOBIN 9.5 g/dl (12.0-16.0); LYMPHOCYTES # (AUTO) 1.6 X10'3 (1.1-4.8); MEAN CORPUSCULAR VOLUME 91.3 FL (78-98); MONOCYTES # (AUTO) 2.6 X10'3 (0-0.9)
[2018-12-30 02:50] LABS: EOSINOPHILS % (AUTO) 0.8 % (0-6); HEMATOCRIT 29.1 % (35.0-45.0); LYMPHOCYTES % (AUTO) 10.8 % (21-51); MEAN CORPUSCULAR HEMOGLOBIN 29.9 PG (27.0-31.0); MEAN CORPUSCULAR HGB CONC 32.7 g/dL (33.0-36.5); MEAN PLATELET VOLUME 8.1 FL (7.4-10.4); MONOCYTES % (AUTO) 18.1 % (2-12); NEUTROPHILS # (AUTO) 10.1 X10'3 (1.8-7.7); NEUTROPHILS % (AUTO) 69.2 % (42-75); PLATELET COUNT 787 X10'3 (140-440); RED BLOOD COUNT 3.19 X10'6 (4.20-5.60); WHITE BLOOD COUNT 14.5 X10'3 (4.5-11.0)
[2018-12-30 02:55] LABS: ALANINE AMINOTRANSFERASE 27 U/L (12-78); ALBUMIN 1.8 G/DL (3.4-5.0); ALBUMIN/GLOBULIN RATIO 0.5 (1.1-1.5); ALKALINE PHOSPHATASE 168 IU/L (46-116); ANION GAP 7 (8-16); ASPARTATE AMINO TRANSFERASE 17 U/L (10-37); BILIRUBIN,TOTAL 0.3 MG/DL (0.1-1.0); BLOOD UREA NITROGEN 14 MG/DL (7-18); BUN/CREATININE RATIO 46.7 (6.6-38.0); CALCIUM 8.5 MG/DL (8.5-10.1); CHLORIDE 104 MMOL/L (99-107); GLUCOSE 83 MG/DL (70-104); MAGNESIUM 1.5 MG/DL (1.5-2.4); POTASSIUM 3.9 MMOL/L (3.5-5.1); PREALBUMIN 11.7 MG/DL (19-36); SODIUM 135 MMOL/L (135-145); TOTAL PROTEIN 5.4 G/DL (6.4-8.2); TRIGLYCERIDES 64 MG/DL (20-135); eGFR > 90 ML/MIN
[2018-12-30] MEDS: LORazepam 2 mg/ml vial IV PRN ×3 (03:53→17:47)
[2018-12-30] MEDS: TIGECYCLINE IV SCH ×2 (03:54→15:48)
[2018-12-30] MEDS: NORMAL SALINE IV SCH ×4 (03:54→16:57)
[2018-12-30 04:10] LABS: ANISOCYTOSIS 2+; PLATELET ESTIMATE INCREASED; TOTAL CELLS COUNTED 100
[2018-12-30 04:11] LABS: ACANTHOCYTES FEW; BURR CELLS FEW; LARGE PLATELETS FEW; POLYCHROMASIA FEW
--- NOTE | 2018-12-30 06:08 | NUR ---
VSS this shift. No distress, Patient requests that RT not wake her for Trach care. I explained to patient that there are many tasks that we must do but perhaps we can make a point to confer with RT /RN to cluster care. I also let Peewee RT know the patient wishes. L lateral decub CXR completed this am - patient tolerated well on the left side for the shoot. Pain med q2h, ativan requested twice and zofran for mild nausea this shift . 6 am - spoke to Mary from [facility]. Mary was asking about the PICC line and asked if there was mention of changing it out. I told mary i will pass this along in report. I reminded Mary about the DVT status and she will follow up with Dr. Ashby and PICC RN
--- NOTE | 2018-12-30 06:30 | NUR ---
Patient in room ICU 2043. I have received report from ROBINA Pearson and had the opportunity to ask questions and assume patient care.
[2018-12-30] MEDS: enoxaparin 100mg/ml syringe SUBCUT SCH ×2 (07:46→20:26)
[2018-12-30] MEDS: famotidine/PF 10 mg/ml inj IV SCH ×2 (07:46→20:26)
[2018-12-30] MEDS: CEFTAZIDIME IV SCH ×2 (07:47→16:57)
[2018-12-30] MEDS: AVIBACTAM IV SCH ×2 (07:47→16:57)
[2018-12-30] MEDS: sodium ferric gluc complex inj 125 MG in normal saline 100ml IV soln 100 ML IV SCH (07:47)
--- NOTE | 2018-12-30 09:18 | NUR ---
ONEIL RN and Dr. Singh at bedside. Wound vac to abdominal wound broken down, pt premedicated with additional 0.[address] Singh performed minor debridement of wound to remove a few specks of wound vac sponge that had been imbedded in wound. Pt tolerated procedure well. Bleeding minimal, less than 2 mL.
[2018-12-30] MEDS: DAPTOmycin inj. 750 MG in normal saline 100ml IV soln 100 ML IV SCH (10:35)
[2018-12-30] MEDS: MVI, adult No.4 with vit. K 10 ML in normal saline 500ml IV soln 500 ML IV SCH ×2 (10:35)
[2018-12-30] MEDS: fluconazole/NS 400mg/200ml bag 200 ML IV SCH (12:44)
[2018-12-30] MEDS ORDERED: iohexol 300mg/ml 100ml inj. ONE (13:59)
--- NOTE | 2018-12-30 15:33 | NUR ---
reassessment: Pt tolerating TPN at goal meeting intubation/wound needs. Strict NPO per MD due to leak at esophageal jejunal anastomosis site. Per MD note, may be starting drip feeds on 01/08 through J-tube. Pt with significant recent PMH including hiatal hernia/esophagogastric diverticulum resection, a gastrectomy, a small bowel resection, a splenectomy, placement of a feeding J-tube, trached and with chest tube and gastrojejunostomy with leak at anastomisis site. Will continue to monitor TG/PALB for adjustments as needed. Pt with increased protein needs r/t recent surgical procedures. Estimated nutrient needs calculated using AdjBW of 60.56 kg to better meet patient's nutrient needs with BMI of 45.6. Will continue to follow. Recommendations: 1) Continuous 2:1 TPN using Clinimix E 10/09 for 24 hours increase to 100 mL/hr to provide adequate protein and calories: 2400 mL total volume, 120 g protein, and 360 g dextrose with dextrose load 2.45 mg/kg/min; discussed with MD to meet 35 kcal/kg and discussed with RN and Pharmacy 2) Separate lipids using total of 180 mL 20% intralipids to run for 12 hours at 15 mL/hr to provide 36 g lipids 3) TPN and lipids to provide total of 1584 non protein kcal and 2064 total kcal 4) Daily weights Addendum: 12/30/18 at [address] Amended: Links added.
[2018-12-30] MEDS: fat emulsion IV bag 180 ML IV SCH (15:49)
[2018-12-30] MEDS: albuterol 2.5 MG/3 ML nebule NEB PRN (17:11)
[2018-12-30] MEDS: SODIUM CHLORIDE IV SCH (18:05)
[2018-12-30] MEDS: TRACE ELEMENT IV SCH (18:05)
[2018-12-30] MEDS: [UNRECOGNIZED DRUG - OTHER] IV SCH (18:05)
--- NOTE | 2018-12-30 18:24 | NUR ---
Problems reprioritized. Patient report given, questions answered & plan of care reviewed with ROBINA Fulton.
--- NOTE | 2018-12-30 18:25 | NUR ---
assumed care from Isaac QUARLES no questions or concerns after report
--- NOTE | 2018-12-30 18:51 | NUR ---
Jesse RT at bedside doing trach care and vent settings, patient rr even un labored NO S/S OF ACUTE STRESS AT THIS TIME
--- NOTE | 2018-12-30 20:00 | NUR ---
patient in bed watching television rr even un labored no observable s/s of acute stress at this time
[2018-12-30] MEDS: diphenhydrAMINE 50 mg/ml inj IV PRN (20:26)
[2018-12-30] MEDS: insulin glargine (Lantus) pen - multi-dose SQ SCH (20:59)
[2018-12-30] MEDS: OLANZapine **IM** 10 mg inj. IM SCH (21:15)
--- NOTE | 2018-12-30 22:48 | NUR ---
patient in bed supine hob 45 degrees rr even in labored no observable s/s of acute stress at this time
[2018-12-31] VITALS (24 sets, daily range): BP systolic 91–151; BP diastolic 37–86
[2018-12-31] MEDS: NORMAL SALINE IV SCH ×5 (00:27→16:30)
[2018-12-31] MEDS: AVIBACTAM IV SCH ×3 (00:27→16:30)
[2018-12-31] MEDS: CEFTAZIDIME IV SCH ×3 (00:27→16:30)
[2018-12-31] MEDS: ondansetron/PF 4mg/2ml inj IV PRN ×4 (01:10→21:57)
[2018-12-31] MEDS: HYDROmorphone 1 mg/ml syringe IV PRN ×8 (01:10→21:58)
--- NOTE | 2018-12-31 01:32 | NUR ---
patient requesting pain medications and anti nausea medication, patient is in bed supine covers on eyes open rr even un labored no observable s/s of acute stress at this time
--- NOTE | 2018-12-31 02:24 | NUR ---
patient in bed eyes closed rr even un labored no observable s/s of acute stress at this time
--- NOTE | 2018-12-31 02:57 | NUR ---
PATIENT SUPINE IN BED EYES CLOSED RR EVEN UN LABORED ANGEL RT IS IN ROOM DOING VENT /TRACH CHECK PATIENT IS IN NO OBSERVABLE SIGN OF ACUTE STRESS AT THIS TIME
[2018-12-31] MEDS: LORazepam 2 mg/ml vial IV PRN ×4 (03:14→21:17)
[2018-12-31] MEDS: TIGECYCLINE IV SCH ×2 (04:34→16:30)
--- NOTE | 2018-12-31 05:00 | NUR ---
PATIENT REQUESTING PAIN MEDICATION, ADMINISTERED PRN BEFORE TURNING PATIENT AND REPLACING LINENS, PATIENT DURING TURNING AND REPOSITIONING RR EVEN AND UN LABORED THERE WAS NO OBSERVABLE S/S OF ACUTE STRESS AT THIS TIME
--- NOTE | 2018-12-31 06:09 | NUR ---
PATIENT IN BED EYES CLOSED COVERS ON RR EVEN UN LABORED NO OBSERVABLE S/S OF ACUTE STRESS AT THIS TIME
--- NOTE | 2018-12-31 06:33 | NUR ---
SBAR TO CRIS QUARLES AND FRANCISCO QUARLES PROBLEMS REPRIORTIZED NO QUESTIONS OR CONCERNS AFTER REPORT GIVEN
[2018-12-31] MEDS: enoxaparin 100mg/ml syringe SUBCUT SCH ×2 (07:44→20:27)
[2018-12-31] MEDS: famotidine/PF 10 mg/ml inj IV SCH ×2 (07:44→20:27)
[2018-12-31] MEDS: sodium ferric gluc complex inj 125 MG in normal saline 100ml IV soln 100 ML IV SCH (07:55)
[2018-12-31] MEDS: DAPTOmycin inj. 750 MG in normal saline 100ml IV soln 100 ML IV SCH (11:39)
[2018-12-31] MEDS: MVI, adult No.4 with vit. K 10 ML in normal saline 500ml IV soln 500 ML IV SCH ×2 (11:39)
[2018-12-31 13:05] LABS: ABG HCO3 23.5 mmol/L (22.0-26.0); ABG OXYGEN SATURATION 92.4 % (95-98); ABG PCO2 (T) 34.1 mmHg (35.0-45.0); ABG PH (T) 7.456 (7.350-7.450); ABG PO2 (T) 63.7 mmHg (83-108); ALLEN'S TEST Positive; FCOHb 0.3 % (0.5-1.5); FMetHb 0.2 % (0.3-1.12); FO2Hb 91.9 % (94-100); PEEP 5 cm H2O; RESPIRATORY RATE (OBSERVED) 30 b/min
[2018-12-31] MEDS: fluconazole/NS 400mg/200ml bag 200 ML IV SCH (13:36)
[2018-12-31] MEDS: TRACE ELEMENT IV SCH (13:53)
[2018-12-31] MEDS: SODIUM CHLORIDE IV SCH (13:53)
[2018-12-31] MEDS: [UNRECOGNIZED DRUG - OTHER] IV SCH (13:53)
[2018-12-31] MEDS: fat emulsion IV bag 180 ML IV SCH (16:03)
--- NOTE | 2018-12-31 18:15 | NUR ---
assumed care from Brigette QUARLES and Adithya QUARLES, no questions or concerns upon SBAR from daysnyft
[2018-12-31] MEDS: albuterol 2.5 MG/3 ML nebule NEB PRN (19:06)
[2018-12-31] MEDS: insulin glargine (Lantus) pen - multi-dose SQ SCH (20:30)
[2018-12-31] MEDS: diphenhydrAMINE 50 mg/ml inj IV PRN (21:16)
[2018-12-31] MEDS: OLANZapine **IM** 10 mg inj. IM SCH (21:17)
--- NOTE | 2018-12-31 21:58 | NUR ---
Nicholas RT in doing vent check took patient off of cpap/bi-pap mode back on a/cvc 30% fio2
--- NOTE | 2018-12-31 21:59 | NUR ---
patient in bed rr even un labored eyes open watching television no observable s/s of acute stress at this time
[2019-01-01] VITALS (24 sets, daily range): BP systolic 95–149; BP diastolic 38–91
--- NOTE | 2019-01-01 | NUR ---
patient in bed eyes open rr even un labored no observable s/s of acute stress at this time will continue to monitor
[2019-01-01] MEDS: AVIBACTAM IV SCH ×2 (00:07→07:27)
[2019-01-01] MEDS: NORMAL SALINE IV SCH ×4 (00:07→16:37)
[2019-01-01] MEDS: CEFTAZIDIME IV SCH ×2 (00:07→07:27)
[2019-01-01] MEDS: HYDROmorphone 1 mg/ml syringe IV PRN ×5 (00:21→14:11)
--- NOTE | 2019-01-01 01:13 | NUR ---
patient in bed eyes closed rr even un labored no observable s/s of acute stress at this time
--- NOTE | 2019-01-01 02:37 | NUR ---
PATIENT IN BED COVERS ON EYES CLOSED RR EVEN UN LABORED NO OBSERVABLE S/S OF ACUTE STRESS AT THIS TIME
[2019-01-01] MEDS: LORazepam 2 mg/ml vial IV PRN ×4 (03:17→22:56)
[2019-01-01] MEDS: TIGECYCLINE IV SCH ×2 (04:12→16:37)
[2019-01-01] MEDS: ondansetron/PF 4mg/2ml inj IV PRN ×3 (04:12→20:55)
--- NOTE | 2019-01-01 05:05 | NUR ---
PATIENT IN BED EYES CLOSED RR EVEN UN LABORED NO OBSERVABLE S/S OF ACUTE STRESS AT THIS TIME
--- NOTE | 2019-01-01 06:28 | NUR ---
SBAR OFF TO ARY MCALLISTER HAD NO QUESTIONS OR CONCERNS AFTER ASSUMING CARE
--- NOTE | 2019-01-01 06:29 | NUR ---
Patient in room ICU 2043. I have received report from ROBINA Fulton and had the opportunity to ask questions and assume patient care.
[2019-01-01] MEDS: sodium ferric gluc complex inj 125 MG in normal saline 100ml IV soln 100 ML IV SCH (07:25)
[2019-01-01] MEDS: enoxaparin 100mg/ml syringe SUBCUT SCH ×2 (07:27→20:35)
[2019-01-01] MEDS: famotidine/PF 10 mg/ml inj IV SCH ×2 (07:27→20:34)
--- NOTE | 2019-01-01 08:43 | NUR ---
Dr. Ashby at bedside to talk to pt. Discussed plan for antibiotics.
[2019-01-01] MEDS: TRACE ELEMENT IV SCH (09:42)
[2019-01-01] MEDS: SODIUM CHLORIDE IV SCH (09:42)
[2019-01-01] MEDS: [UNRECOGNIZED DRUG - OTHER] IV SCH (09:42)
[2019-01-01] MEDS: MVI, adult No.4 with vit. K 10 ML in normal saline 500ml IV soln 500 ML IV SCH ×2 (09:46)
[2019-01-01] MEDS: DAPTOmycin inj. 750 MG in normal saline 100ml IV soln 100 ML IV SCH (11:00)
--- NOTE | 2019-01-01 11:25 | NUR ---
Dr. Singh at bedside. Informed MD that radio isotopes are in short supply and can not be gotten until Sunday. Unable to take pt to [facility] for WBC scan.
[2019-01-01] MEDS: fluconazole/NS 400mg/200ml bag 200 ML IV SCH (13:20)
--- NOTE | 2019-01-01 13:54 | NUR ---
Pt tolerated time in chair well. No c/o pain or discomfort at this time.
[2019-01-01] MEDS: fat emulsion IV bag 180 ML IV SCH (15:22)
[2019-01-01] MEDS: HYDROmorphone inj. 0.5 MG/0.5 ML DISP.SYRIN IV PRN ×3 (17:24→22:56)
--- NOTE | 2019-01-01 17:42 | NUR ---
Pt coughed during trach care, coughed up green bile looking substance. Pt requesting zofran, informed pt that zofran wasn't due.
--- NOTE | 2019-01-01 17:55 | NUR ---
Pt. starting coughing after insertion of inner cannula and I attempted to pass lopes to perform deep suction. Coughing fit ensued, pt able to spontaneously expectorate bright green, secretions resembling bile. Vital signs stable afterwards. Heartrate 94 spo2 96% BS coarse on expiration. RR - 34 Addendum: 01/01/19 at 1758 by Doe Manning RT Amended: Links added.
--- NOTE | 2019-01-01 18:20 | NUR ---
Problems reprioritized. Patient report given, questions answered & plan of care reviewed with ROBINA Fulton.
--- NOTE | 2019-01-01 18:25 | NUR ---
assumed care of patient in icu bed #[id number] from Alisha RN, i had no questions or concerns after recieving SBAR from day shift nurse
--- NOTE | 2019-01-01 20:02 | NUR ---
talked with David Cardoso about getting a different nausea medication other than zofran Q6hr PRN, received verbal to stagger compazine 10mg,iv q 8 hrs prn w/ zofran.Also brought to David Cardoso's attention, patients hx of opioid addiction and asked if that iv dilaudid 0.5 mg q2hrs is appropriate, per David Cardoso "no changes on pain medication order".
--- NOTE | 2019-01-01 20:07 | NUR ---
patient in bed eyes open watching television rr even un labored no observable s/s of acute stress at this time
[2019-01-01] MEDS: OLANZapine **IM** 10 mg inj. IM SCH (20:36)
[2019-01-01] MEDS: insulin glargine (Lantus) pen - multi-dose SQ SCH (20:47)
--- NOTE | 2019-01-01 21:28 | NUR ---
patient in bed covers on eyes closed rr even un labored no observable s/s of acute stress at this time
[2019-01-01] MEDS: diphenhydrAMINE 50 mg/ml inj IV PRN (22:56)
[2019-01-02] VITALS (24 sets, daily range): BP systolic 90–144; BP diastolic 45–92
--- NOTE | 2019-01-02 | NUR ---
PATIENT IN BED EYES CLOSE RR EVEN UN LABORED NO OBSERVABLE S/S OF ACUTE STRESS AT THIS TIME
[2019-01-02] MEDS: proCHLORperazine 10 MG/2 ml inj IV PRN ×2 (00:06→21:43)
[2019-01-02] MEDS ORDERED: tPA-cathflo 2 MG/2 ml IV flush IVF ONE ×2 (02:35→03:50)
--- NOTE | 2019-01-02 02:35 | NUR ---
ATTEMPTING TO DRAW A.M. LABS, PICC LINE WOULD NOT DRAW, CHANGED LUER LOCK'S STILL NO BLOOD WHEN ASPIRATING WITH A BARREL SYRINGE, CALLED [facility] RECIEVED TELEPHONE ORDER TO ADMINISTER CATH FLOW, IF THIS DOES NOT WORK TO START A PIV,STOP USING PICC AND CALL PICC NURSE IN IN A.M.
[2019-01-02] MEDS: TIGECYCLINE IV SCH ×2 (04:41→14:49)
[2019-01-02] MEDS: NORMAL SALINE IV SCH ×2 (04:41→14:49)
[2019-01-02] MEDS: TRACE ELEMENT IV SCH (04:42)
[2019-01-02] MEDS: SODIUM CHLORIDE IV SCH (04:42)
[2019-01-02] MEDS: [UNRECOGNIZED DRUG - OTHER] IV SCH (04:42)
[2019-01-02] MEDS: ondansetron/PF 4mg/2ml inj IV PRN ×3 (04:45→17:58)
[2019-01-02 04:51] LABS: % IRON SATURATION 19 % (11-46); IRON 27 UG/DL (49-151); TOTAL IRON BINDING CAPACITY 140 UG/DL (259-388)
--- NOTE | 2019-01-02 05:29 | NUR ---
Amy RT at bedside doing trach care patient received zofran prior to trach care to help eliminate chances of aspirating with gag reflex/coughing
[2019-01-02] MEDS: LORazepam 2 mg/ml vial IV PRN ×3 (05:39→17:58)
[2019-01-02] MEDS: HYDROmorphone inj. 0.5 MG/0.5 ML DISP.SYRIN IV PRN ×5 (05:50→19:12)
--- NOTE | 2019-01-02 06:27 | NUR ---
SBAR TO CJ RN NO QUESTIONS OR CONCERNS AFTER REPORT WAS GIVEN.
[2019-01-02 06:51] LABS: BFAPPEAR CLOUDY
[2019-01-02 06:54] LABS: BFCOLOR GREEN; BFVOLUME 1 ML
[2019-01-02 07:22] LABS: BASOPHILS # (AUTO) 0.1 X10'3 (0-0.2); EOSINOPHILS % (AUTO) 0.3 % (0-6); HEMOGLOBIN 9.1 g/dl (12.0-16.0); LYMPHOCYTES # (AUTO) 0.9 X10'3 (1.1-4.8); MONOCYTES # (AUTO) 2.1 X10'3 (0-0.9)
[2019-01-02 07:24] LABS: BASOPHILS % (AUTO) 0.7 % (0-1); HEMATOCRIT 27.7 % (35.0-45.0); LYMPHOCYTES % (AUTO) 7.2 % (21-51); MEAN CORPUSCULAR HEMOGLOBIN 30.6 PG (27.0-31.0); MEAN CORPUSCULAR VOLUME 92.8 FL (78-98); MEAN PLATELET VOLUME 7.6 FL (7.4-10.4); MONOCYTES % (AUTO) 17.4 % (2-12); NEUTROPHILS # (AUTO) 9.1 X10'3 (1.8-7.7); NEUTROPHILS % (AUTO) 74.4 % (42-75); PLATELET COUNT 630 X10'3 (140-440); RED BLOOD COUNT 2.98 X10'6 (4.20-5.60); RED CELL DISTRIBUTION WIDTH 19.6 % (11.5-14.5); WHITE BLOOD COUNT 12.3 X10'3 (4.5-11.0)
[2019-01-02 07:34] LABS: ALANINE AMINOTRANSFERASE 25 U/L (12-78); ALBUMIN 1.6 G/DL (3.4-5.0); ALBUMIN/GLOBULIN RATIO 0.5 (1.1-1.5); ALKALINE PHOSPHATASE 163 IU/L (46-116); ANION GAP 6 (8-16); ASPARTATE AMINO TRANSFERASE 21 U/L (10-37); BILIRUBIN,TOTAL 0.3 MG/DL (0.1-1.0); BLOOD UREA NITROGEN 17 MG/DL (7-18); BUN/CREATININE RATIO 42.5 (6.6-38.0); CALCIUM 8.2 MG/DL (8.5-10.1); CHLORIDE 104 MMOL/L (99-107); GLUCOSE 99 MG/DL (70-104); MAGNESIUM 1.4 MG/DL (1.5-2.4); POTASSIUM 4.2 MMOL/L (3.5-5.1); SODIUM 134 MMOL/L (135-145); TOTAL CARBON DIOXIDE 23.6 MMOL/L (24-32); TRIGLYCERIDES 49 MG/DL (20-135); eGFR > 90 ML/MIN
[2019-01-02 08:04] LABS: AMYLASE,BODY FLUID > 10000 U/L
[2019-01-02] MEDS: enoxaparin 100mg/ml syringe SUBCUT SCH ×2 (08:04→20:44)
[2019-01-02] MEDS: famotidine/PF 10 mg/ml inj IV SCH ×2 (08:04→20:44)
[2019-01-02] MEDS: MVI, adult No.4 with vit. K 10 ML in normal saline 500ml IV soln 500 ML IV SCH ×2 (10:45)
[2019-01-02 11:10] LABS: PLATELET ESTIMATE INCREASED
[2019-01-02 11:14] LABS: ANISOCYTOSIS 3+; BURR CELLS FEW; POIKILOCYTOSIS 1+; POLYCHROMASIA 1+; SPHEROCYTES 2+
[2019-01-02 11:15] LABS: ACANTHOCYTES FEW; SCHISTOCYTES FEW
--- NOTE | 2019-01-02 12:09 | NUR ---
Reassessment: Pt tolerating TPN at goal. New PALB results 10.8 down from 11.7 and trending downward. MD OK with increase in TPN in order to provide further protein/kcals needs. Pt has been consistently fluid negative this admit -13kg from admit wt. Will now use current wt for more accurate nutrition support needs given BMI less than 40 and falling PALB. Will monitor for new TPN goal rate tolerance and signs of refeeding syndrome since will receive 90g DEX more than previously. Will continue to monitor. Recommendations: 1) Continuous 2:1 TPN using Clinimix E 5/15 for 24 hours increase to 100 mL/hr to provide adequate protein and calories: 3000mL total volume, 150g AA, and 450g dextrose with dextrose load 3.38g/kg/min. 2) Separate lipids using total of 120mL 20% intralipids to run for 12 hours at 10mL/hr to provide 24g lipids 3) TPN and lipids to provide total of 1770 non-protein kcal and 2370 total kcal 4) Daily weights; PALB / Addendum: 01/02/19 at [address] Amended: Links added. Addendum: 01/02/19 at [address] Reassessment: Pt tolerating TPN at goal. New PALB results 10.8 down from 11.7 and trending downward. MD OK with increase in TPN in order to provide further protein/kcals needs. Pt has been consistently fluid negative this admit -13kg from admit wt. Will now use current wt for more accurate nutrition support needs given BMI less than 40 and falling PALB. Will monitor for new TPN goal rate tolerance and signs of refeeding syndrome since will receive 90g DEX more than previously. Will continue to monitor. Recommendations: 1) Continuous 2:1 TPN using Clinimix E /15 for 24 hours increase to 125 mL/hr to provide adequate protein and calories: 3000mL total volume, 150g AA, and 450g dextrose with dextrose load 3.38g/kg/min. 2) Separate lipids using total of 120mL 20% intralipids to run for 12 hours at 10mL/hr to provide 24g lipids 3) TPN and lipids to provide total of 1770 non-protein kcal and 2370 total kcal 4) Daily weights; PALB
[2019-01-02] MEDS: fluconazole/NS 400mg/200ml bag 200 ML IV SCH (12:24)
[2019-01-02] MEDS: fat emulsion IV bag 180 ML IV SCH (14:49)
[2019-01-02] MEDS: insulin glargine (Lantus) pen - multi-dose SQ SCH (21:00)
[2019-01-02] MEDS: OLANZapine **IM** 10 mg inj. IM SCH (21:27)
[2019-01-03] VITALS (24 sets, daily range): BP systolic 89–138; BP diastolic 43–85
[2019-01-03] MEDS: TRACE ELEMENT IV SCH ×2 (01:51→15:25)
[2019-01-03] MEDS: LORazepam 2 mg/ml vial IV PRN ×4 (01:51→21:40)
[2019-01-03] MEDS: ondansetron/PF 4mg/2ml inj IV PRN ×4 (01:51→21:37)
[2019-01-03] MEDS: [UNRECOGNIZED DRUG - OTHER] IV SCH ×2 (01:51→15:25)
[2019-01-03] MEDS: SODIUM CHLORIDE IV SCH ×2 (01:51→15:25)
[2019-01-03] MEDS: diphenhydrAMINE 50 mg/ml inj IV PRN ×2 (02:56→21:40)
[2019-01-03] MEDS: TIGECYCLINE IV SCH ×2 (04:11→15:18)
[2019-01-03] MEDS: NORMAL SALINE IV SCH ×2 (04:11→15:18)
[2019-01-03] MEDS: HYDROmorphone inj. 0.5 MG/0.5 ML DISP.SYRIN IV PRN ×4 (04:57→19:02)
[2019-01-03] MEDS: famotidine/PF 10 mg/ml inj IV SCH ×2 (09:16→20:40)
[2019-01-03] MEDS: MVI, adult No.4 with vit. K 10 ML in normal saline 500ml IV soln 500 ML IV SCH ×2 (09:17)
[2019-01-03] MEDS: enoxaparin 100mg/ml syringe SUBCUT SCH ×2 (09:17→20:41)
[2019-01-03] MEDS: fluconazole/NS 400mg/200ml bag 200 ML IV SCH (13:35)
--- NOTE | 2019-01-03 13:42 | NUR ---
WOUND INFECTION EDUCATION PROVIDED BY WOUND CARE 1. Patient instructed to call their primary doctor, or go the ED immediately if any of the following symptoms occur: * Increased pain in wound * Increase in drainage from the wound * Redness in the skin surrounding the wound * Warmth in the skin surrounding the wound * Bleeding from the wound * Temperature of 101 or greater 2. If any of these occur while in the hospital tell a nurse immediately. WOUND VAC EDUCATION PROVIDED BY WOUND CARE 1. Patient instructed to call the Wound Center or their Home Health Agency immediately if: * They notice a change in the color or amount of the fluid in the canister. * Their wound looks more red than usual or has a foul smell. * The skin around their wound looks reddened or irritated. * The dressing feels loose or appears to be loose. * They experience any increase or changes in their pain. * The alarm will not turn off. 2. Patient instructed that they should not be disconnected from suction for more than 2 hours at a time. * If they are not able to get the suction back on, they need to remove the dressing and take all of the foam out of the wound. * Then moisten sterile gauze with normal saline and place on/in the wound. * Change the dressing once a day until arrangements have been made to replace the wound vac dressing. 3. Patient instructed to turn the wound vac machine OFF and call 911 or go to the ED immediately if their canister fills rapidly with blood. 4. If any of these occur while in the hospital tell a nurse immediately. Addendum: 01/03/19 at 1342 by Shannon Huffman RN Amended: Links added.
[2019-01-03] MEDS: fat emulsion IV bag 180 ML IV SCH (15:18)
--- NOTE | 2019-01-03 18:40 | NUR ---
RN Note -Pt up to commode. Was a little winded and tired getting back into bed, but overall tolerated well. Large unformed bowel movement.
[2019-01-03] MEDS: OLANZapine **IM** 10 mg inj. IM SCH (20:42)
[2019-01-03] MEDS: insulin glargine (Lantus) pen - multi-dose SQ SCH (20:42)
--- NOTE | 2019-01-03 23:39 | NUR ---
RN Note -Patterson bag leaking. Changed to new bag with urometer
[2019-01-04] VITALS (24 sets, daily range): BP systolic 89–156; BP diastolic 44–90
[2019-01-04] MEDS: TIGECYCLINE IV SCH ×2 (04:22→16:25)
[2019-01-04] MEDS: NORMAL SALINE IV SCH ×2 (04:22→16:25)
[2019-01-04] MEDS: HYDROmorphone inj. 0.5 MG/0.5 ML DISP.SYRIN IV PRN ×4 (05:05→17:48)
[2019-01-04] MEDS: LORazepam 2 mg/ml vial IV PRN ×3 (05:34→17:48)
[2019-01-04] MEDS: ondansetron/PF 4mg/2ml inj IV PRN ×3 (05:39→17:48)
--- NOTE | 2019-01-04 06:15 | NUR ---
RN Note -Spontaneous Breathing Trial while pt was sleeping for 30 minutes. Initiated at 0545, vent went into backup ventilation mode at 0615
[2019-01-04 06:54] LABS: ALANINE AMINOTRANSFERASE 25 U/L (12-78); ALBUMIN 1.5 G/DL (3.4-5.0); ALBUMIN/GLOBULIN RATIO 0.5 (1.1-1.5); ALKALINE PHOSPHATASE 159 IU/L (46-116); ANION GAP 9 (8-16); ASPARTATE AMINO TRANSFERASE 14 U/L (10-37); BILIRUBIN,TOTAL 0.2 MG/DL (0.1-1.0); BLOOD UREA NITROGEN 16 MG/DL (7-18); BUN/CREATININE RATIO 55.2 (6.6-38.0); CALCIUM 7.7 MG/DL (8.5-10.1); CHLORIDE 103 MMOL/L (99-107); CREATININE 0.29 MG/DL (0.40-0.90); GLUCOSE 89 MG/DL (70-104); MAGNESIUM 1.3 MG/DL (1.5-2.4); PHOSPHORUS 3.6 MG/DL (2.3-4.5); POTASSIUM 3.4 MMOL/L (3.5-5.1); SODIUM 134 MMOL/L (135-145); TOTAL CARBON DIOXIDE 21.9 MMOL/L (24-32); TOTAL PROTEIN 4.8 G/DL (6.4-8.2); eGFR > 90 ML/MIN
[2019-01-04 07:14] LABS: BASOPHILS # (AUTO) 0.1 X10'3 (0-0.2); EOSINOPHILS % (AUTO) 0.4 % (0-6); HEMATOCRIT 29.1 % (35.0-45.0); HEMOGLOBIN 9.6 g/dl (12.0-16.0); LYMPHOCYTES # (AUTO) 1.2 X10'3 (1.1-4.8); LYMPHOCYTES % (AUTO) 11.3 % (21-51); MEAN CORPUSCULAR HEMOGLOBIN 31.2 PG (27.0-31.0); MEAN CORPUSCULAR HGB CONC 32.9 g/dL (33.0-36.5); MEAN CORPUSCULAR VOLUME 94.7 FL (78-98); MEAN PLATELET VOLUME 8.1 FL (7.4-10.4); MONOCYTES # (AUTO) 1.9 X10'3 (0-0.9); MONOCYTES % (AUTO) 17.3 % (2-12); NEUTROPHILS # (AUTO) 7.6 X10'3 (1.8-7.7); PLATELET COUNT 594 X10'3 (140-440); RED BLOOD COUNT 3.08 X10'6 (4.20-5.60); RED CELL DISTRIBUTION WIDTH 20.9 % (11.5-14.5); WHITE BLOOD COUNT 10.8 X10'3 (4.5-11.0)
[2019-01-04] MEDS: famotidine/PF 10 mg/ml inj IV SCH ×2 (08:53→20:57)
[2019-01-04] MEDS: enoxaparin 100mg/ml syringe SUBCUT SCH ×2 (08:53→20:57)
[2019-01-04] MEDS: SODIUM CHLORIDE IV SCH ×3 (08:54→23:03)
[2019-01-04] MEDS: [UNRECOGNIZED DRUG - OTHER] IV SCH ×3 (08:54→23:03)
[2019-01-04] MEDS: TRACE ELEMENT IV SCH ×3 (08:54→23:03)
[2019-01-04] MEDS: MVI, adult No.4 with vit. K 10 ML in normal saline 500ml IV soln 500 ML IV SCH ×2 (08:55)
[2019-01-04 09:38] LABS: ANISOCYTOSIS 3+; PLATELET ESTIMATE INCREASED
[2019-01-04 09:39] LABS: POIKILOCYTOSIS FEW; POLYCHROMASIA 2+
[2019-01-04] MEDS ORDERED: furosemide 20 MG/2 ML vial IV ONE ×2 (11:35→23:35)
[2019-01-04] MEDS: potassium Cl 20mEq/100mL bag 100 ML IV PRN ×2 (11:56→14:45)
--- NOTE | 2019-01-04 11:57 | NUR ---
01/04 Received TC from RN stating MD requesting protein increase by 25% in TPN. Alb down to 1.5, was 1.6 at last check (01/02). Recommendations below have been d/w pharmacy and will provide 2.0 g protein/kg current body wt of 92.4 kg and dext will increase by 108 grams. BG levels currently WNL with range of 89-116 01/02-present. Increase in TPN rate will meet 100% estimated protein needs and 104% estimated energy needs. Fluid balance fluctuates per I&O. RN discussed electrolyte adjustment with pharmacy d/t pt with low Na 134, K 3.4, and mag 1.3. Will continue to follow. Reassessment: Pt tolerating TPN at goal. New PALB results 10.8 down from 11.7 and trending downward. MD OK with increase in TPN in order to provide further protein/kcals needs. Pt has been consistently fluid negative this admit -13kg from admit wt. Will now use current wt for more accurate nutrition support needs given BMI less than 40 and falling PALB. Will monitor for new TPN goal rate tolerance and signs of refeeding syndrome since will receive 90g DEX more than previously. Will continue to monitor. Recommendations: 1) Continuous 2:1 TPN using Clinimix E /15 for 24 hours increase to 155 mL/hr to provide adequate protein and calories: 3720mL total volume, 186g AA, and 558g dextrose with dextrose load 4.19 mg/kg/min. 2) Separate lipids using total of 120mL 20% intralipids to run for 12 hours at 10mL/hr to provide 24g lipids and 240 kcal (8% kcal from fat) 3) TPN and lipids to provide total of 2137 non-protein kcal and 2877 total kcal 4) Daily weights; PALB / Addendum: 01/04/19 at [address] Amended: Links added.
[2019-01-04] MEDS: fluconazole/NS 400mg/200ml bag 200 ML IV SCH (13:11)
[2019-01-04] MEDS: fat emulsion IV bag 180 ML IV SCH (14:45)
--- NOTE | 2019-01-04 16:37 | NUR ---
patient wanted to try bradfordy mur tomorrow 01/05 Addendum: 01/04/19 at 1638 by Elisabeth Jimenez RT Amended: Links added.
[2019-01-04] MEDS: proCHLORperazine 10 MG/2 ml inj IV PRN (20:18)
[2019-01-04] MEDS: OLANZapine **IM** 10 mg inj. IM SCH (20:57)
[2019-01-04] MEDS: insulin glargine (Lantus) pen - multi-dose SQ SCH (20:58)
[2019-01-05] VITALS (23 sets, daily range): BP systolic 84–148; BP diastolic 36–87
[2019-01-05] MEDS: LORazepam 2 mg/ml vial IV PRN ×4 (00:16→20:20)
[2019-01-05] MEDS: ondansetron/PF 4mg/2ml inj IV PRN ×4 (00:17→20:20)
[2019-01-05] MEDS: diphenhydrAMINE 50 mg/ml inj IV PRN ×2 (01:03→22:22)
[2019-01-05] MEDS: HYDROmorphone inj. 0.5 MG/0.5 ML DISP.SYRIN IV PRN ×5 (01:03→22:22)
[2019-01-05] MEDS: TIGECYCLINE IV SCH ×2 (04:23→16:42)
[2019-01-05] MEDS: NORMAL SALINE IV SCH ×2 (04:23→16:42)
[2019-01-05] MEDS: famotidine/PF 10 mg/ml inj IV SCH ×2 (07:31→20:20)
[2019-01-05] MEDS: enoxaparin 100mg/ml syringe SUBCUT SCH ×2 (07:31→20:20)
[2019-01-05] MEDS: proCHLORperazine 10 MG/2 ml inj IV PRN (09:54)
[2019-01-05] MEDS: MVI, adult No.4 with vit. K 10 ML in normal saline 500ml IV soln 500 ML IV SCH ×2 (09:55)
--- NOTE | 2019-01-05 10:19 | NUR ---
On Spont from [id number]
[2019-01-05] MEDS: SODIUM CHLORIDE IV SCH (13:09)
[2019-01-05] MEDS: [UNRECOGNIZED DRUG - OTHER] IV SCH (13:09)
[2019-01-05] MEDS: fluconazole/NS 400mg/200ml bag 200 ML IV SCH (13:09)
[2019-01-05] MEDS: TRACE ELEMENT IV SCH (13:09)
[2019-01-05] MEDS: fat emulsion IV bag 180 ML IV SCH (14:24)
[2019-01-05] MEDS ORDERED: furosemide 20 MG/2 ML vial IV SCH (20:00)
[2019-01-05] MEDS: OLANZapine **IM** 10 mg inj. IM SCH (21:20)
[2019-01-06] VITALS (23 sets, daily range): BP systolic 88–131; BP diastolic 46–83
[2019-01-06] MEDS: LORazepam 2 mg/ml vial IV PRN ×3 (02:34→17:32)
[2019-01-06] MEDS: proCHLORperazine 10 MG/2 ml inj IV PRN ×2 (02:35→19:26)
[2019-01-06] MEDS: HYDROmorphone inj. 0.5 MG/0.5 ML DISP.SYRIN IV PRN ×5 (02:35→20:37)
[2019-01-06 03:13] LABS: % IRON SATURATION 30 % (11-46); IRON 43 UG/DL (49-151); TOTAL IRON BINDING CAPACITY 144 UG/DL (259-388)
[2019-01-06 03:20] LABS: ALANINE AMINOTRANSFERASE 44 U/L (12-78); ALBUMIN 1.4 G/DL (3.4-5.0); ALBUMIN/GLOBULIN RATIO 0.4 (1.1-1.5); ALKALINE PHOSPHATASE 151 IU/L (46-116); ANION GAP 4 (8-16); ASPARTATE AMINO TRANSFERASE 38 U/L (10-37); BILIRUBIN,TOTAL 0.2 MG/DL (0.1-1.0); BLOOD UREA NITROGEN 17 MG/DL (7-18); BUN/CREATININE RATIO 56.7 (6.6-38.0); CALCIUM 7.8 MG/DL (8.5-10.1); CHLORIDE 104 MMOL/L (99-107); GLUCOSE 74 MG/DL (70-104); MAGNESIUM 1.5 MG/DL (1.5-2.4); POTASSIUM 4.2 MMOL/L (3.5-5.1); SODIUM 134 MMOL/L (135-145); TOTAL CARBON DIOXIDE 25.7 MMOL/L (24-32); TOTAL PROTEIN 4.6 G/DL (6.4-8.2); TRIGLYCERIDES 65 MG/DL (20-135); eGFR > 90 ML/MIN
[2019-01-06 03:26] LABS: BASOPHILS # (AUTO) 0.1 X10'3 (0-0.2); BASOPHILS % (AUTO) 0.7 % (0-1); EOSINOPHILS % (AUTO) 0.4 % (0-6); HEMOGLOBIN 9.3 g/dl (12.0-16.0); LYMPHOCYTES # (AUTO) 1.4 X10'3 (1.1-4.8); LYMPHOCYTES % (AUTO) 15.6 % (21-51); MEAN CORPUSCULAR HGB CONC 33.1 g/dL (33.0-36.5); MEAN CORPUSCULAR VOLUME 93.7 FL (78-98); MEAN PLATELET VOLUME 7.9 FL (7.4-10.4); MONOCYTES # (AUTO) 1.7 X10'3 (0-0.9); MONOCYTES % (AUTO) 18.2 % (2-12); NEUTROPHILS % (AUTO) 65.1 % (42-75); PLATELET COUNT 524 X10'3 (140-440); RED BLOOD COUNT 2.98 X10'6 (4.20-5.60); RED CELL DISTRIBUTION WIDTH 20.3 % (11.5-14.5); WHITE BLOOD COUNT 9.2 X10'3 (4.5-11.0)
[2019-01-06] MEDS: SODIUM CHLORIDE IV SCH ×2 (04:00→17:55)
[2019-01-06] MEDS: [UNRECOGNIZED DRUG - OTHER] IV SCH ×2 (04:00→17:55)
[2019-01-06] MEDS: TRACE ELEMENT IV SCH ×2 (04:00→17:55)
[2019-01-06] MEDS: NORMAL SALINE IV SCH (04:25)
[2019-01-06] MEDS: TIGECYCLINE IV SCH (04:25)
[2019-01-06] MEDS: enoxaparin 100mg/ml syringe SUBCUT SCH ×2 (08:22→19:27)
[2019-01-06] MEDS: famotidine/PF 10 mg/ml inj IV SCH ×2 (08:22→19:26)
[2019-01-06] MEDS: MVI, adult No.4 with vit. K 10 ML in normal saline 500ml IV soln 500 ML IV SCH ×2 (10:00)
[2019-01-06] MEDS: ondansetron/PF 4mg/2ml inj IV PRN ×2 (11:05→17:32)
[2019-01-06 14:46] LABS: ACANTHOCYTES 1+; ANISOCYTOSIS 3+; PLATELET ESTIMATE INCREASED; POIKILOCYTOSIS 1+; POLYCHROMASIA 1+; TOTAL CELLS COUNTED 100
[2019-01-06] MEDS: fat emulsion IV bag 180 ML IV SCH (15:28)
--- NOTE | 2019-01-06 17:26 | NUR ---
WOUND VAC EDUCATION PROVIDED BY WOUND CARE 1. Patient instructed to call the Wound Center or their Home Health Agency immediately if: * They notice a change in the color or amount of the fluid in the canister. * Their wound looks more red than usual or has a foul smell. * The skin around their wound looks reddened or irritated. * The dressing feels loose or appears to be loose. * They experience any increase or changes in their pain. * The alarm will not turn off. 2. Patient instructed that they should not be disconnected from suction for more than 2 hours at a time. * If they are not able to get the suction back on, they need to remove the dressing and take all of the foam out of the wound. * Then moisten sterile gauze with normal saline and place on/in the wound. * Change the dressing once a day until arrangements have been made to replace the wound vac dressing. 3. Patient instructed to turn the wound vac machine OFF and call 911 or go to the ED immediately if their canister fills rapidly with blood. 4. If any of these occur while in the hospital tell a nurse immediately. Addendum: 01/06/19 at 1727 by Shannon Huffman RN Amended: Links added.
--- NOTE | 2019-01-06 18:50 | NUR ---
Received patient report from Erick QUARLES
[2019-01-06] MEDS ORDERED: furosemide 20 MG/2 ML vial IV SCH (20:00)
[2019-01-06] MEDS: diphenhydrAMINE 50 mg/ml inj IV PRN (20:53)
[2019-01-07] VITALS (24 sets, daily range): BP systolic 84–159; BP diastolic 40–92
[2019-01-07] MEDS: ondansetron/PF 4mg/2ml inj IV PRN ×3 (01:36→15:05)
[2019-01-07] MEDS: LORazepam 2 mg/ml vial IV PRN ×4 (01:36→21:01)
[2019-01-07] MEDS: HYDROmorphone inj. 0.5 MG/0.5 ML DISP.SYRIN IV PRN ×5 (01:36→21:01)
[2019-01-07] MEDS: [UNRECOGNIZED DRUG - OTHER] IV SCH ×2 (08:15→18:10)
[2019-01-07] MEDS: SODIUM CHLORIDE IV SCH ×2 (08:15→18:10)
[2019-01-07] MEDS: TRACE ELEMENT IV SCH ×2 (08:15→18:10)
[2019-01-07] MEDS: MVI, adult No.4 with vit. K 10 ML in normal saline 500ml IV soln 500 ML IV SCH ×2 (09:00)
[2019-01-07] MEDS: famotidine/PF 10 mg/ml inj IV SCH ×2 (09:01→20:14)
[2019-01-07] MEDS: enoxaparin 100mg/ml syringe SUBCUT SCH ×2 (09:01→20:14)
--- NOTE | 2019-01-07 12:57 | NUR ---
reassessment: Pt tolerating TPN at new goal w/ no signs of refeeding. Increasing ambulation per RN. Pt has BMx3 01/[address] w/ IV contrast per MD note. Per OK to try beet juice PO at 20ml sip each hour to monitor if shows on CT drain since dye is nutritionally contraindicated per ASPEN/AND guidelines. New PALB ordered yesterday 01/06 but no lab taken; MD aware and next to be 01/09. Recommendations: 1) Continuous 2:1 TPN using Clinimix E 10/09 for 24 hours increase to 155 mL/hr to provide adequate protein and calories: 3720mL total volume, 186g AA, and 558g dextrose with dextrose load 4.19 mg/kg/min. 2) Separate lipids using total of 120mL 20% intralipids to run for 12 hours at 10mL/hr to provide 24g lipids and 240 kcal (8% kcal from fat) 3) TPN and lipids to provide total of 2137 non-protein kcal and 2877 total kcal 4) Daily weights; PALB / Addendum: 01/07/19 at [address] Amended: Links added.
[2019-01-07] MEDS: fat emulsion IV bag 180 ML IV SCH (15:05)
[2019-01-07 17:42] LABS: BFAPPEAR CLOUDY
[2019-01-07 17:44] LABS: BF RBC COUNT 3 /CU MM; BF WBC COUNT 7 /CU MM (0-1000); BFCOLOR GREEN; BFVOLUME 50 ML
--- NOTE | 2019-01-07 18:22 | NUR ---
Received report from Erick QUARLES no questions or concerns after assuming care
--- NOTE | 2019-01-07 19:14 | NUR ---
Abran RT at bedside checking vent patient is asking to be on a set respiratory rate, Abran RT explaining for patients benefit to stay on spontaneous, will assess patient and contact Abran RT if patient does not tolerate
[2019-01-07] MEDS: diphenhydrAMINE 50 mg/ml inj IV PRN (20:14)
[2019-01-07] MEDS: proCHLORperazine 10 MG/2 ml inj IV PRN (20:14)
--- NOTE | 2019-01-07 20:22 | NUR ---
PATIENTS FATHER AT BEDSIDE VISITING WITH PATIENT RR EVEN UN LABORED NO OBSERVABLE S/S OF ACUTE STRESS AT THIS TIME
--- NOTE | 2019-01-07 20:29 | NUR ---
FLUSHED ABDOMINAL DRAIN 10 CC STERILE WATER ORDER TID
--- NOTE | 2019-01-07 21:51 | NUR ---
PATIENT IN BED ASKED FOR PILLOWS TO BE REMOVED FROM EXTREMITIES RR EVEN UN LABORED NO OBSERVABLE S/S OF ACUTE STRESS AT THIS TIME
[2019-01-08] VITALS (24 sets, daily range): BP systolic 93–143; BP diastolic 46–91
--- NOTE | 2019-01-08 01:40 | NUR ---
patient in bed supine eyes closed rr even un labored no s/s of acute stress at this time
[2019-01-08] MEDS: ondansetron/PF 4mg/2ml inj IV PRN ×3 (03:09→15:40)
[2019-01-08] MEDS: HYDROmorphone inj. 0.5 MG/0.5 ML DISP.SYRIN IV PRN ×5 (03:10→20:23)
[2019-01-08] MEDS: LORazepam 2 mg/ml vial IV PRN ×4 (03:23→20:22)
--- NOTE | 2019-01-08 04:11 | NUR ---
PATIENT IN BED SUPINE EYES CLOSED RR EVEN UN LABORED NO OBSERVABLE S/S OF ACUTE STRESS AT THIS TIME
[2019-01-08] MEDS ORDERED: LIDOcaine Viscous 15ml cup MM ONE (04:55)
[2019-01-08] MEDS: SODIUM CHLORIDE IV SCH ×2 (04:57→21:18)
[2019-01-08] MEDS: TRACE ELEMENT IV SCH ×2 (04:57→21:18)
[2019-01-08] MEDS: [UNRECOGNIZED DRUG - OTHER] IV SCH ×2 (04:57→21:18)
--- NOTE | 2019-01-08 05:07 | NUR ---
PATIENT COMPLAINING OF A KANKER SORE ON INSIDE OF LOWER LIP WAS ABLE TO GET ORDER FOR LIDOCAINE VISCOUS TO SWAB AND SPIT, REYNOLD STATED TO LET DAY SHIFT RN KNOW AND IF DR. HEMPHILL WOULD LIKE TO ORDER SOMETHING "PRN."
[2019-01-08] MEDS: proCHLORperazine 10 MG/2 ml inj IV PRN ×2 (05:37→17:39)
--- NOTE | 2019-01-08 06:27 | NUR ---
SBAR TO DOM QUARLES NO QUESTIONS OR CONCERNS FROM DOM QUARLES AFTER REPORT KURTIS
[2019-01-08] MEDS: famotidine/PF 10 mg/ml inj IV SCH ×2 (07:01→20:22)
[2019-01-08] MEDS: enoxaparin 100mg/ml syringe SUBCUT SCH ×2 (07:01→20:50)
[2019-01-08] MEDS ORDERED: iohexol 300mg/ml 100ml inj. ONE (07:35)
[2019-01-08] MEDS ORDERED: LIDOCAINE 5% OINTMENT 35GM TP ONE (09:20)
[2019-01-08] MEDS: MVI, adult No.4 with vit. K 10 ML in normal saline 500ml IV soln 500 ML IV SCH ×2 (10:16)
--- NOTE | 2019-01-08 13:05 | NUR ---
TF consult: Per MD burgessay to start patient on trickle feed at 20 ml/hr, recommend using vital high protein, d/w bedside RN. Pt tolerating TPN at new goal with no signs of refeeding. Increasing ambulation per RN. Pt has BMx3 8/[address] w/ IV contrast per MD note. New PALB ordered yesterday 01/06 but no lab taken; MD aware and next to be 01/09. reassessment: Pt tolerating TPN at new goal w/ no signs of refeeding. Increasing ambulation per RN. Pt has BMx3 8/[address] w/ IV contrast per MD note. Per MD BURGESS to try beet juice PO at 20ml sip each hour to monitor if shows on CT drain since dye is nutritionally contraindicated per ASPEN/AND guidelines. New PALB ordered yesterday 01/06 but no lab taken; MD aware and next to be 01/09. Recommendations: 1) Continuous 2:1 TPN using Clinimix E 10/09 for 24 hours increase to 155 mL/hr to provide adequate protein and calories: 3720mL total volume, 186g AA, and 558g dextrose with dextrose load 4.19 mg/kg/min. 2) Separate lipids using total of 120mL 20% intralipids to run for 12 hours at 10mL/hr to provide 24g lipids and 240 kcal (8% kcal from fat) 3) TPN and lipids to provide total of 2137 non-protein kcal and 2877 total kcal 4) Daily weights; PALB 5) Begin trickle J tube feeds at 20 ml/hr with vital high protein Addendum: 01/08/19 at [address] Amended: Links added.
[2019-01-08 14:42] LABS: BFAPPEAR CLOUDY; BFCOLOR GREEN; BFVOLUME 15 ML
[2019-01-08] MEDS: fat emulsion IV bag 180 ML IV SCH (15:26)
--- NOTE | 2019-01-08 18:26 | NUR ---
Problems reprioritized. Patient report given, questions answered & plan of care reviewed with Donaldo.
--- NOTE | 2019-01-08 18:27 | NUR ---
assumed care from Jennifer QUARLES no questions or concerns after SBAR
[2019-01-08] MEDS: diphenhydrAMINE 50 mg/ml inj IV PRN (20:50)
--- NOTE | 2019-01-08 21:00 | NUR ---
patient in bed eyes open watching television rr even un labored no observable s/s of acute stress at this time
--- NOTE | 2019-01-08 21:39 | NUR ---
patient in bed covers off, eyes closed rr even un labored no s/s of acute stress at this time
[2019-01-09] VITALS (24 sets, daily range): BP systolic 90–154; BP diastolic 47–94
--- NOTE | 2019-01-09 | NUR ---
patient in bed covers on eyes closed rr even un labored no observable s/s of acute stress at this time
--- NOTE | 2019-01-09 02:28 | NUR ---
patient in bed covers on eyes closed rr even un labored no observable s/s of acute stress at this time
[2019-01-09] MEDS: ondansetron/PF 4mg/2ml inj IV PRN ×3 (03:28→16:55)
[2019-01-09] MEDS: HYDROmorphone inj. 0.5 MG/0.5 ML DISP.SYRIN IV PRN ×6 (03:29→23:57)
--- NOTE | 2019-01-09 04:22 | NUR ---
PATIENT IN BED EYES CLOSED RR EVEN UN LABORED NO OBSERVABLE S/S OF ACUTE STRESS AT THIS TIME
[2019-01-09] MEDS: LORazepam 2 mg/ml vial IV PRN ×4 (05:01→23:56)
[2019-01-09 05:09] LABS: BASOPHILS # (AUTO) 0.1 X10'3 (0-0.2); BASOPHILS % (AUTO) 0.5 % (0-1); EOSINOPHILS % (AUTO) 0.2 % (0-6); HEMOGLOBIN 10.5 g/dl (12.0-16.0); LYMPHOCYTES # (AUTO) 1.3 X10'3 (1.1-4.8); LYMPHOCYTES % (AUTO) 13.9 % (21-51); MEAN CORPUSCULAR HEMOGLOBIN 30.5 PG (27.0-31.0); MEAN CORPUSCULAR HGB CONC 32.7 g/dL (33.0-36.5); MEAN CORPUSCULAR VOLUME 93.5 FL (78-98); MEAN PLATELET VOLUME 7.6 FL (7.4-10.4); MONOCYTES # (AUTO) 1.3 X10'3 (0-0.9); MONOCYTES % (AUTO) 13.1 % (2-12); NEUTROPHILS % (AUTO) 72.3 % (42-75); PLATELET COUNT 567 X10'3 (140-440); RED BLOOD COUNT 3.42 X10'6 (4.20-5.60); RED CELL DISTRIBUTION WIDTH 20.2 % (11.5-14.5); WHITE BLOOD COUNT 9.6 X10'3 (4.5-11.0)
[2019-01-09 05:33] LABS: % IRON SATURATION 24 % (11-46); IRON 60 UG/DL (49-151); TOTAL IRON BINDING CAPACITY 250 UG/DL (259-388)
--- NOTE | 2019-01-09 05:38 | NUR ---
PATIENT TOLERATED TRACH CARE AND SWITCHING VENT OUT VERY WELL, CURRENTLY IN BED COVERS OFF EYES CLOSED RR EVEN UN LABORED NO OBSERVABLE S/S OF ACUTE STRESS AT THIS TIME
[2019-01-09 05:45] LABS: ALANINE AMINOTRANSFERASE 92 U/L (12-78); ALBUMIN 1.8 G/DL (3.4-5.0); ALBUMIN/GLOBULIN RATIO 0.5 (1.1-1.5); ALKALINE PHOSPHATASE 176 IU/L (46-116); ANION GAP 8 (8-16); ASPARTATE AMINO TRANSFERASE 83 U/L (10-37); BILIRUBIN,TOTAL 0.2 MG/DL (0.1-1.0); BLOOD UREA NITROGEN 15 MG/DL (7-18); BUN/CREATININE RATIO 42.9 (6.6-38.0); CHLORIDE 93 MMOL/L (99-107); CREATININE 0.35 MG/DL (0.40-0.90); FERRITIN 444 NG/ML (8-252); GLUCOSE 120 MG/DL (70-104); MAGNESIUM 1.3 MG/DL (1.5-2.4); POTASSIUM 4.2 MMOL/L (3.5-5.1); PREALBUMIN 16.6 MG/DL (19-36); SODIUM 123 MMOL/L (135-145); TOTAL CARBON DIOXIDE 22.2 MMOL/L (24-32); TOTAL PROTEIN 5.6 G/DL (6.4-8.2); TRIGLYCERIDES 83 MG/DL (20-135); eGFR > 90 ML/MIN
[2019-01-09] MEDS: proCHLORperazine 10 MG/2 ml inj IV PRN ×2 (05:47→13:43)
--- NOTE | 2019-01-09 06:34 | NUR ---
SBAR TO RUFUS QUARLES NO QUESTIONS OR CONCERNS REGARDING REPORT AFTER SBAR GIVEN
--- NOTE | 2019-01-09 06:37 | NUR ---
Patient in room ICU 2043. I have received report from Donaldo QUARLES and had the opportunity to ask questions and assume patient care.
[2019-01-09 07:05] LABS: ANISOCYTOSIS 3+; PLATELET ESTIMATE INCREASED
[2019-01-09 07:11] LABS: ACANTHOCYTES 1+; BURR CELLS 2+; POLYCHROMASIA 1+; SPHEROCYTES FEW
[2019-01-09 07:12] LABS: SCHISTOCYTES FEW
[2019-01-09] MEDS: famotidine/PF 10 mg/ml inj IV SCH ×2 (07:32→19:42)
[2019-01-09] MEDS: enoxaparin 100mg/ml syringe SUBCUT SCH ×2 (07:34→19:45)
[2019-01-09] MEDS: TRACE ELEMENT IV SCH ×2 (07:36→19:45)
[2019-01-09] MEDS: SODIUM CHLORIDE IV SCH ×2 (07:36→19:45)
[2019-01-09] MEDS: [UNRECOGNIZED DRUG - OTHER] IV SCH (07:36)
[2019-01-09] MEDS: magnesium 2GM in 50ml NS 50 ML IV PRN (07:48)
[2019-01-09] MEDS ORDERED: LIDOcaine 4% (40 mg/ml) topical solution 50ml TP SCH (08:00)
[2019-01-09] MEDS: LIDOcaine 4% (40 mg/ml) topical solution 50ml TP SCH (08:00)
--- NOTE | 2019-01-09 09:07 | NUR ---
Veronica QUARLES Infection Control rounded on patient. Made author aware of patient being present in this hospital for 21 days. Red sign stating "MRSA nasal screen needed on discharge" hung outside room. Also discussed flanagan catheter that has been in place since the beginning of this admission, unable to find insertion date in documentation from various facilities. MD to be made aware.
[2019-01-09] MEDS: MVI, adult No.4 with vit. K 10 ML in normal saline 500ml IV soln 500 ML IV SCH ×2 (09:14)
--- NOTE | 2019-01-09 10:38 | NUR ---
Dr. Singh rounded on patient with multidiscplinary team. Made aware of sodium level 123, chloride 93 and CO2 of 22.2. Made aware of biliary drainage from abdominal drain in LUQ. Orders received to increase tube feeding rate to 30 mL/hr as no tube feeding colored drainage has appeared. No water flushes at this time. Order also received to pull flanagan catheter. Addendum: 01/09/19 at 1043 by Isaac Alarcon RN TPN to be adjusted in response to electrolyte levels.
--- NOTE | 2019-01-09 11:26 | NUR ---
Patient made aware of order to remove flanagan catheter and patient was very resistant. Wrote out long note stating that she had an agreement with [facility] and [facility] that urinary catheter will be removed at discharge from [facility] with follow up with urology. Investigated in the discharge summary from [facility] on 11/20/2018. " Flanagan in place since 12/19, have tried multiple times to remove flanagan with urinary retention, mulitple straight caths, Now plan to keep flanagan in for one month (12/19-01/16) and follow up with urology on discharge. -Flomax 0.4 mg daily." Will make Dr. Singh and Infectious disease aware.
--- NOTE | 2019-01-09 11:48 | NUR ---
Pharmacist Guy called to report that there is a shortage of sodium acetate. So will be adding sodium chloride to 150 mEq (maximum) as Dr. Arriaga ordered during grand rounds.
--- NOTE | 2019-01-09 14:45 | NUR ---
Reassessment: TF tolerated at 20 ml, per MD at rounds OK to increase to 30 ml, discussed at rounds with team including RN. Prealbumin trending up, now 16.6 and albumin 1.8, will remain NPO. Pt tolerating TPN at goal rate. Noted that sodium is low, 123, pharmacy to adjust TPN. Per MD note, recent CT does not show where bile is leaking to LUQ. Will continue to follow. Recommendations: 1) Continuous 2:1 TPN using Clinimix E 10/09 for 24 hours increase to 155 mL/hr to provide adequate protein and calories: 3720mL total volume, 186g AA, and 558g dextrose with dextrose load 4.19 mg/kg/min. 2) Separate lipids using total of 120mL 20% intralipids to run for 12 hours at 10mL/hr to provide 24g lipids and 240 kcal (8% kcal from fat) 3) TPN and lipids to provide total of 2137 non-protein kcal and 2877 total kcal 4) Daily weights; PALB 5) Continue trickle J tube feeds at 30 ml/hr with vital high protein Addendum: 01/09/19 at [address] Amended: Links added.
[2019-01-09] MEDS: fat emulsion IV bag 180 ML IV SCH (14:47)
--- NOTE | 2019-01-09 18:36 | NUR ---
Problems reprioritized. Patient report given, questions answered & plan of care reviewed with Flako QUARLES.
[2019-01-09] MEDS: [UNRECOGNIZED DRUG - OTHER] IV SCH (19:45)
[2019-01-09] MEDS: diphenhydrAMINE 50 mg/ml inj IV PRN (20:47)
[2019-01-10] VITALS (24 sets, daily range): BP systolic 87–143; BP diastolic 43–94
[2019-01-10] MEDS: HYDROmorphone inj. 0.5 MG/0.5 ML DISP.SYRIN IV PRN ×5 (04:05→20:19)
[2019-01-10] MEDS: proCHLORperazine 10 MG/2 ml inj IV PRN ×3 (04:06→20:13)
[2019-01-10] MEDS: ondansetron/PF 4mg/2ml inj IV PRN ×2 (05:29→15:26)
[2019-01-10] MEDS: LORazepam 2 mg/ml vial IV PRN ×3 (05:58→21:04)
--- NOTE | 2019-01-10 06:20 | NUR ---
Patient in room ICU 2043. I have received report from Flako QUARLES and had the opportunity to ask questions and assume patient care.
--- NOTE | 2019-01-10 06:28 | NUR ---
Problems reprioritized. Patient report given, questions answered & plan of care reviewed with George QUARLES.
[2019-01-10] MEDS: LIDOcaine 4% (40 mg/ml) topical solution 50ml TP SCH (08:00)
[2019-01-10] MEDS: famotidine/PF 10 mg/ml inj IV SCH ×2 (08:07→20:16)
[2019-01-10] MEDS: enoxaparin 100mg/ml syringe SUBCUT SCH ×2 (08:08→20:23)
[2019-01-10] MEDS: SODIUM CHLORIDE IV SCH ×2 (08:17→22:13)
[2019-01-10] MEDS: TRACE ELEMENT IV SCH ×2 (08:17→22:13)
[2019-01-10] MEDS: [UNRECOGNIZED DRUG - OTHER] IV SCH ×2 (08:17→22:13)
[2019-01-10] MEDS: MVI, adult No.4 with vit. K 10 ML in normal saline 500ml IV soln 500 ML IV SCH ×2 (08:58)
--- NOTE | 2019-01-10 09:00 | NUR ---
Patient biliary drain found to have evidence of tube feeding in it. Drainage had 40 mL of fluid. Yellowish brown color. tub washer Clari Boyd consulted and confirmed finding. Tube feeding stopped.
--- NOTE | 2019-01-10 10:40 | NUR ---
[facility] Made aware of evidence of tube feeding in drain. Ordered methylene blue dye to be added to tube feeding and have tube feeding resumed at 30 mL/hr. Will continue to monitor. Patient also ordered to have Passy-Dmitri valve on during the day and only have ventilator attached at night or if breathing trouble occurs. Pharmacy was called and able to get dye ordered to add to tube feeding. Will continue to monitor.
[2019-01-10] MEDS ORDERED: DEXTROSE 5% IV ONE (10:55)
[2019-01-10] MEDS ORDERED: METHYLENE BLUE IV ONE (10:55)
[2019-01-10] MEDS ORDERED: WATER IV ONE (10:55)
[2019-01-10] MEDS ORDERED: METHYLENE BLUE 10 MG/ML PO ONE ×3 (11:10→20:00)
--- NOTE | 2019-01-10 12:06 | NUR ---
TAMI. [address] TRONCOSO ABOUT ANA CONSTANTLY WANTING TO BE PUT BACK ON VENT. SETTINGS OR CPAP. CURRENTLY ANA ON 30% COOL AEROSOL, PASSY MEG VALVE, SPO2 95, RR28, HR114, DR TRONCOSO AGREED PATIENT IS DOING WELL ON CURRENT 30% AEROSOL AND TO LEAVE HER THERE, OF COURSE PUT PATIENT BACK ON VENT IF IN DISTRESS OR AT NIGHT ON PREVIOUS SETTINGS FOR CPAP OR VENT SETTINGS. SHE DOES VERY WELL ON CPAP. HE IS AWARE PATIENT IN THE PAST HAS DISCONNECTED CIRCUIT WHILE ON CPAP TO INITIATE VENT APNEA SETTINGS. WE AGREED SHE NEEDS TO CONTINUE TO BE ON AEROSOL TO HELP GET HER OFF VENT AND HOPEFULLY TRACH OUT. Addendum: 01/10/19 at 1218 by Marisol Major RT Amended: Links added.
[2019-01-10 13:43] LABS: HEMOGLOBIN 10.6 g/dl (12.0-16.0); PLATELET COUNT 660 X10'3 (140-440)
[2019-01-10 13:44] LABS: BASOPHILS # (AUTO) 0.1 X10'3 (0-0.2); BASOPHILS % (AUTO) 0.3 % (0-1); EOSINOPHILS % (AUTO) 0.1 % (0-6); HEMATOCRIT 32.5 % (35.0-45.0); MEAN CORPUSCULAR HEMOGLOBIN 30.6 PG (27.0-31.0); MEAN CORPUSCULAR HGB CONC 32.7 g/dL (33.0-36.5); MEAN CORPUSCULAR VOLUME 93.6 FL (78-98); MEAN PLATELET VOLUME 7.6 FL (7.4-10.4); MONOCYTES # (AUTO) 1.5 X10'3 (0-0.9); MONOCYTES % (AUTO) 7.8 % (2-12); NEUTROPHILS # (AUTO) 16.5 X10'3 (1.8-7.7); NEUTROPHILS % (AUTO) 86.8 % (42-75); RED BLOOD COUNT 3.47 X10'6 (4.20-5.60); WHITE BLOOD COUNT 19.1 X10'3 (4.5-11.0)
[2019-01-10 13:51] LABS: ALANINE AMINOTRANSFERASE 93 U/L (12-78); ALBUMIN/GLOBULIN RATIO 0.5 (1.1-1.5); ALKALINE PHOSPHATASE 179 IU/L (46-116); ANION GAP 7 (8-16); ASPARTATE AMINO TRANSFERASE 34 U/L (10-37); BILIRUBIN,TOTAL 0.3 MG/DL (0.1-1.0); BLOOD UREA NITROGEN 14 MG/DL (7-18); BUN/CREATININE RATIO 45.2 (6.6-38.0); CALCIUM 8.3 MG/DL (8.5-10.1); CHLORIDE 97 MMOL/L (99-107); CREATININE 0.31 MG/DL (0.40-0.90); GLUCOSE 115 MG/DL (70-104); MAGNESIUM 1.7 MG/DL (1.5-2.4); PHOSPHORUS 3.8 MG/DL (2.3-4.5); POTASSIUM 4.6 MMOL/L (3.5-5.1); SODIUM 127 MMOL/L (135-145); TOTAL PROTEIN 6.3 G/DL (6.4-8.2); eGFR > 90 ML/MIN
[2019-01-10 14:10] LABS: PLATELET ESTIMATE INCREASED
[2019-01-10 14:11] LABS: ANISOCYTOSIS 2+; POLYCHROMASIA 1+; SCHISTOCYTES FEW
[2019-01-10 14:12] LABS: ACANTHOCYTES 1+; BURR CELLS 2+
[2019-01-10] MEDS: fat emulsion IV bag 180 ML IV SCH (14:38)
--- NOTE | 2019-01-10 16:51 | NUR ---
At 1600, pt stated that she would like to be placed back on the ventilator. I informed her that Dr Dumont would like her to stay on the Passy-Dmitri valve until this evening when she was ready for bed and she stated that she did not want to stay on it and that she has the right to refuse the MD's orders. Her VS were stable HR 111, RR 26, and SpO2 100%, she appeared to be in no distress. Charge Nurse Clari QUARLES was made aware and spoke with the pt. The pt insisted that she be placed back on the ventilator with her set rate settings and not CPAP/Spont. Ari Montague RN suggested we place the pt back on the ventilator and notify the Dr Dumont. Pt was subsequently placed back on the ventilator with the following settings AC PRVC, 12bpm, 450VT, PEEP +5, FiO2 30% Addendum: 01/10/19 at 1714 by Marisol Major RT Amended: Links added.
--- NOTE | 2019-01-10 17:11 | NUR ---
Order received from Dr. Dumont to have one time order to add methylene blue to tube feeding to be started at 2000 tonight.
--- NOTE | 2019-01-10 18:22 | NUR ---
Problems re prioritized. Patient report given, questions answered & plan of care reviewed with Flako QUARLES.
--- NOTE | 2019-01-10 18:34 | NUR ---
Patient in room ICU 2043. I have received report from George QUARLES and had the opportunity to ask questions and assume patient care.
[2019-01-10] MEDS: diphenhydrAMINE 50 mg/ml inj IV PRN (20:19)
[2019-01-11] VITALS (24 sets, daily range): BP systolic 98–159; BP diastolic 50–94
[2019-01-11] MEDS: HYDROmorphone inj. 0.5 MG/0.5 ML DISP.SYRIN IV PRN ×6 (00:13→20:59)
[2019-01-11] MEDS: ondansetron/PF 4mg/2ml inj IV PRN ×2 (00:22→15:34)
[2019-01-11] MEDS: LORazepam 2 mg/ml vial IV PRN ×4 (03:36→21:55)
[2019-01-11] MEDS: proCHLORperazine 10 MG/2 ml inj IV PRN ×2 (05:04→20:55)
--- NOTE | 2019-01-11 06:22 | NUR ---
Patient in room ICU 2043. I have received report from Flako QUARLES and had the opportunity to ask questions and assume patient care.
--- NOTE | 2019-01-11 06:22 | NUR ---
Problems reprioritized. Patient report given, questions answered & plan of care reviewed with George QUARLES.
[2019-01-11] MEDS: famotidine/PF 10 mg/ml inj IV SCH ×2 (07:49→20:50)
[2019-01-11] MEDS: enoxaparin 100mg/ml syringe SUBCUT SCH ×2 (07:50→20:53)
[2019-01-11] MEDS: LIDOcaine 4% (40 mg/ml) topical solution 50ml TP SCH (08:00)
--- NOTE | 2019-01-11 08:37 | NUR ---
Dr. Ashby called unit and ordered CBC and metabolic panel.
[2019-01-11 09:03] LABS: BASOPHILS % (AUTO) 0.2 % (0-1); HEMOGLOBIN 10.1 g/dl (12.0-16.0); LYMPHOCYTES # (AUTO) 0.8 X10'3 (1.1-4.8); LYMPHOCYTES % (AUTO) 5.4 % (21-51)
[2019-01-11 09:05] LABS: EOSINOPHILS % (AUTO) 0.2 % (0-6); HEMATOCRIT 30.9 % (35.0-45.0); MEAN CORPUSCULAR HEMOGLOBIN 30.7 PG (27.0-31.0); MEAN CORPUSCULAR HGB CONC 32.8 g/dL (33.0-36.5); MEAN CORPUSCULAR VOLUME 93.7 FL (78-98); MEAN PLATELET VOLUME 6.9 FL (7.4-10.4); MONOCYTES # (AUTO) 1.6 X10'3 (0-0.9); MONOCYTES % (AUTO) 10.6 % (2-12); NEUTROPHILS # (AUTO) 12.9 X10'3 (1.8-7.7); NEUTROPHILS % (AUTO) 83.6 % (42-75); PLATELET COUNT 693 X10'3 (140-440); RED BLOOD COUNT 3.29 X10'6 (4.20-5.60); WHITE BLOOD COUNT 15.5 X10'3 (4.5-11.0)
[2019-01-11 09:18] LABS: ALANINE AMINOTRANSFERASE 96 U/L (12-78); ALBUMIN/GLOBULIN RATIO 0.5 (1.1-1.5); ALKALINE PHOSPHATASE 183 IU/L (46-116); ANION GAP 5 (8-16); ASPARTATE AMINO TRANSFERASE 37 U/L (10-37); BILIRUBIN,TOTAL 0.3 MG/DL (0.1-1.0); BLOOD UREA NITROGEN 16 MG/DL (7-18); BUN/CREATININE RATIO 51.6 (6.6-38.0); CALCIUM 8.7 MG/DL (8.5-10.1); CHLORIDE 99 MMOL/L (99-107); CREATININE 0.31 MG/DL (0.40-0.90); GLUCOSE 118 MG/DL (70-104); POTASSIUM 4.9 MMOL/L (3.5-5.1); SODIUM 130 MMOL/L (135-145); TOTAL CARBON DIOXIDE 25.9 MMOL/L (24-32); TOTAL PROTEIN 6.1 G/DL (6.4-8.2); eGFR > 90 ML/MIN
[2019-01-11] MEDS: MVI, adult No.4 with vit. K 10 ML in normal saline 500ml IV soln 500 ML IV SCH ×2 (09:22)
[2019-01-11] MEDS: [UNRECOGNIZED DRUG - OTHER] IV SCH ×2 (09:26→22:22)
[2019-01-11] MEDS: TRACE ELEMENT IV SCH ×2 (09:26→22:22)
[2019-01-11] MEDS: SODIUM CHLORIDE IV SCH ×2 (09:26→22:22)
--- NOTE | 2019-01-11 09:36 | NUR ---
Dr. Ashby called and alerted of WBC level of 15.5. No new orders. Will continue to monitor.
--- NOTE | 2019-01-11 10:17 | NUR ---
Dr. Beavers rounded on patient. Orders received for AM labs CBC w/ diff, CMP, and Procalcitonin
[2019-01-11] MEDS: fat emulsion IV bag 180 ML IV SCH (15:15)
--- NOTE | 2019-01-11 17:55 | NUR ---
Patient reports new onset chest pain described as "dull, achy, 3/10" in the left of sternal border at 4th intercoastal space. Denies radiation of pain. States pain started around 1700 and has slowly been increasing. Also states that she has not felt this type of pain before. Sussy Cavanaugh PA-C alerted of all this information. EKG and troponin one time ordered.
--- NOTE | 2019-01-11 18:23 | NUR ---
Problems reprioritized. Patient report given, questions answered & plan of care reviewed with Flako QUARLES.
--- NOTE | 2019-01-11 18:30 | NUR ---
Patient in room ICU 2043. I have received report from George QUARLES and had the opportunity to ask questions and assume patient care.
[2019-01-11] MEDS: diphenhydrAMINE 50 mg/ml inj IV PRN (20:55)
[2019-01-11] MEDS: acetaminophen 325mg/10.15ml oral unit dose solution JT PRN (21:02)
[2019-01-12] VITALS (24 sets, daily range): BP systolic 93–168; BP diastolic 43–97
--- NOTE | 2019-01-12 00:33 | NUR ---
I spoke with David Cardoso at this time and let him know about pt fever up to 38.3 earlier in shift. he is aware. no change in orders at this time.
[2019-01-12] MEDS: HYDROmorphone inj. 0.5 MG/0.5 ML DISP.SYRIN IV PRN ×5 (01:44→20:04)
[2019-01-12] MEDS: ondansetron/PF 4mg/2ml inj IV PRN ×3 (01:44→20:04)
[2019-01-12 03:33] LABS: BASOPHILS # (AUTO) 0.1 X10'3 (0-0.2); BASOPHILS % (AUTO) 0.5 % (0-1); EOSINOPHILS % (AUTO) 0.3 % (0-6); HEMATOCRIT 27.9 % (35.0-45.0); HEMOGLOBIN 9.1 g/dl (12.0-16.0); LYMPHOCYTES # (AUTO) 0.9 X10'3 (1.1-4.8); LYMPHOCYTES % (AUTO) 5.6 % (21-51); MEAN CORPUSCULAR HEMOGLOBIN 30.5 PG (27.0-31.0); MEAN CORPUSCULAR HGB CONC 32.6 g/dL (33.0-36.5); MEAN CORPUSCULAR VOLUME 93.6 FL (78-98); MEAN PLATELET VOLUME 7.4 FL (7.4-10.4); MONOCYTES # (AUTO) 1.8 X10'3 (0-0.9); MONOCYTES % (AUTO) 10.9 % (2-12); NEUTROPHILS # (AUTO) 13.4 X10'3 (1.8-7.7); NEUTROPHILS % (AUTO) 82.7 % (42-75); PLATELET COUNT 595 X10'3 (140-440); RED BLOOD COUNT 2.98 X10'6 (4.20-5.60); RED CELL DISTRIBUTION WIDTH 20.1 % (11.5-14.5); WHITE BLOOD COUNT 16.2 X10'3 (4.5-11.0)
[2019-01-12 03:59] LABS: ALANINE AMINOTRANSFERASE 85 U/L (12-78); ALBUMIN 1.7 G/DL (3.4-5.0); ALBUMIN/GLOBULIN RATIO 0.4 (1.1-1.5); ALKALINE PHOSPHATASE 182 IU/L (46-116); ANION GAP 7 (8-16); ASPARTATE AMINO TRANSFERASE 33 U/L (10-37); BILIRUBIN,TOTAL 0.2 MG/DL (0.1-1.0); BLOOD UREA NITROGEN 18 MG/DL (7-18); CALCIUM 8.7 MG/DL (8.5-10.1); CHLORIDE 99 MMOL/L (99-107); CREATININE 0.36 MG/DL (0.40-0.90); GLUCOSE 116 MG/DL (70-104); POTASSIUM 4.5 MMOL/L (3.5-5.1); SODIUM 130 MMOL/L (135-145); TOTAL CARBON DIOXIDE 24.4 MMOL/L (24-32); TOTAL PROTEIN 5.6 G/DL (6.4-8.2); eGFR > 90 ML/MIN
[2019-01-12] MEDS: LORazepam 2 mg/ml vial IV PRN ×3 (05:02→19:17)
[2019-01-12] MEDS: proCHLORperazine 10 MG/2 ml inj IV PRN ×3 (05:19→21:08)
--- NOTE | 2019-01-12 06:17 | NUR ---
Patient in room ICU 2043. I have received report from Flako QUARLES and had the opportunity to ask questions and assume patient care.
--- NOTE | 2019-01-12 06:23 | NUR ---
Problems reprioritized. Patient report given, questions answered & plan of care reviewed with George QUARLES.
[2019-01-12] MEDS: enoxaparin 100mg/ml syringe SUBCUT SCH ×2 (07:11→19:18)
[2019-01-12] MEDS: famotidine/PF 10 mg/ml inj IV SCH ×2 (07:11→19:16)
[2019-01-12] MEDS: LIDOcaine 4% (40 mg/ml) topical solution 50ml TP SCH (08:00)
[2019-01-12] MEDS: MVI, adult No.4 with vit. K 10 ML in normal saline 500ml IV soln 500 ML IV SCH ×2 (09:43)
--- NOTE | 2019-01-12 10:00 | NUR ---
Dr. Beavers made aware of postive blood cultures from 01/11/2019. Two blood cultures drawn from bilateral hands, both negative at 24 hours. Fungal culture drawn from left PICC line, positive for gram positive cocci in clusters, lab states this is likely contamination. Order received to repeat fungal cultures from left PICC line with new cap.
--- NOTE | 2019-01-12 10:15 | NUR ---
Dr. Beavers rounded on patient. Patient requested to be put back on ventilator and Dr. Beavers and patient agreed to a schedule of 3 hours on Passi-Waldorf valve and 3 hours on ventilator alternating starting at 1100 to go back on ventilator to help with chest pain. Patient reports that chest pain from last night has not resolved. Still 08/04 pain, left sided chest pain. Addendum: 01/12/19 at 1051 by Isaac Alarcon RN Dr. Beavers also ordered tube feeding to be increased to 40 mL/hr.
--- NOTE | 2019-01-12 11:33 | NUR ---
Reassessment: Pt tolerating JTF and TPN at goal. New PALB pending tomorrow. No leak per MD note following dye administration. No leak noted per MD note. RD notified RN that dye is contraindicated given potential for mitochondrial toxicity. Bile leak is noted though unsure etiology per MD. Moderate BM 01/11 per EMR. Na up to 130. Will monitor for nutrition support adjustment recs pending new PALB and JTF tolerance. IF enteral leak resumes and persists will transfer to [place] per MD. Recommendations: 1) Continuous 2:1 TPN using Clinimix E 10/09 for 24 hours increase to 155 mL/hr to provide adequate protein and calories: 3720mL total volume, 186g AA, and 558g dextrose with dextrose load 4.19 mg/kg/min. 2) Separate lipids using total of 120mL 20% intralipids to run for 12 hours at 10mL/hr to provide 24g lipids and 240 kcal (8% kcal from fat) 3) TPN and lipids to provide total of 2137 non-protein kcal and 2877 total kcal 4) Daily weights; PALB 5) Continue trickle J tube feeds at 30 ml/hr with vital high protein Addendum: 01/12/19 at [address] Amended: Links added.
[2019-01-12] MEDS: SODIUM CHLORIDE IV SCH (12:44)
[2019-01-12] MEDS: TRACE ELEMENT IV SCH (12:44)
[2019-01-12] MEDS: [UNRECOGNIZED DRUG - OTHER] IV SCH (12:44)
[2019-01-12] MEDS: acetaminophen 325mg/10.15ml oral unit dose solution JT PRN ×2 (13:02→22:29)
[2019-01-12] MEDS: fat emulsion IV bag 180 ML IV SCH (14:03)
[2019-01-12] MEDS: VANCOmycin 1250MG/NS 250ml Bag 250 ML IV SCH (14:31)
--- NOTE | 2019-01-12 15:02 | NUR ---
Patient refusing to go back on Passi-Dmitri valve. Will continue to monitor. Addendum: 01/12/19 at 1503 by Isaac Alarcon RN Amended: Links added.
--- NOTE | 2019-01-12 17:03 | NUR ---
Switched to Passi-[place] valve Addendum: 01/12/19 at 1704 by Isaac Alarcon RN Amended: Links added.
--- NOTE | 2019-01-12 18:21 | NUR ---
Problems reprioritized. Patient report given, questions answered & plan of care reviewed with Flako QUARLES.
--- NOTE | 2019-01-12 18:22 | NUR ---
Patient in room ICU 2043. I have received report from George QUARLES and had the opportunity to ask questions and assume patient care.
[2019-01-12] MEDS: diphenhydrAMINE 50 mg/ml inj IV PRN (20:04)
--- NOTE | 2019-01-12 22:37 | NUR ---
fever up to 38.5, tylenol given at this time. continue to monitor.
[2019-01-13] VITALS (22 sets, daily range): BP systolic 82–149; BP diastolic 48–99
[2019-01-13] MEDS: HYDROmorphone inj. 0.5 MG/0.5 ML DISP.SYRIN IV PRN ×5 (00:25→21:06)
[2019-01-13] MEDS: VANCOmycin 1250MG/NS 250ml Bag 250 ML IV SCH ×2 (01:39→16:05)
[2019-01-13] MEDS: [UNRECOGNIZED DRUG - OTHER] IV SCH (01:39)
[2019-01-13] MEDS: SODIUM CHLORIDE IV SCH (01:39)
[2019-01-13] MEDS: TRACE ELEMENT IV SCH ×2 (01:39→19:05)
[2019-01-13] MEDS: ondansetron/PF 4mg/2ml inj IV PRN ×2 (02:12→21:06)
[2019-01-13] MEDS: LORazepam 2 mg/ml vial IV PRN ×2 (02:12→08:13)
[2019-01-13 03:33] LABS: BASOPHILS # (AUTO) 0.1 X10'3 (0-0.2); EOSINOPHILS # (AUTO) 0.1 X10'3 (0-0.9); EOSINOPHILS % (AUTO) 0.3 % (0-6); LYMPHOCYTES # (AUTO) 0.9 X10'3 (1.1-4.8); MEAN PLATELET VOLUME 7.3 FL (7.4-10.4); NEUTROPHILS # (AUTO) 14.2 X10'3 (1.8-7.7)
[2019-01-13 03:34] LABS: BASOPHILS % (AUTO) 0.4 % (0-1); HEMATOCRIT 27.4 % (35.0-45.0); HEMOGLOBIN 8.8 g/dl (12.0-16.0); LYMPHOCYTES % (AUTO) 5.4 % (21-51); MEAN CORPUSCULAR HEMOGLOBIN 30.5 PG (27.0-31.0); MEAN CORPUSCULAR HGB CONC 32.3 g/dL (33.0-36.5); MEAN CORPUSCULAR VOLUME 94.6 FL (78-98); MONOCYTES # (AUTO) 2.2 X10'3 (0-0.9); MONOCYTES % (AUTO) 12.5 % (2-12); NEUTROPHILS % (AUTO) 81.4 % (42-75); PLATELET COUNT 669 X10'3 (140-440); RED BLOOD COUNT 2.89 X10'6 (4.20-5.60); WHITE BLOOD COUNT 17.4 X10'3 (4.5-11.0)
[2019-01-13 03:44] LABS: ALANINE AMINOTRANSFERASE 101 U/L (12-78); ALBUMIN 1.7 G/DL (3.4-5.0); ALBUMIN/GLOBULIN RATIO 0.4 (1.1-1.5); ALKALINE PHOSPHATASE 209 IU/L (46-116); ANION GAP 5 (8-16); ASPARTATE AMINO TRANSFERASE 41 U/L (10-37); BILIRUBIN,TOTAL 0.3 MG/DL (0.1-1.0); BLOOD UREA NITROGEN 17 MG/DL (7-18); CALCIUM 8.6 MG/DL (8.5-10.1); CHLORIDE 100 MMOL/L (99-107); CREATININE 0.25 MG/DL (0.40-0.90); GLUCOSE 116 MG/DL (70-104); MAGNESIUM 1.5 MG/DL (1.5-2.4); POTASSIUM 4.5 MMOL/L (3.5-5.1); PREALBUMIN 16.1 MG/DL (19-36); SODIUM 131 MMOL/L (135-145); TOTAL CARBON DIOXIDE 25.7 MMOL/L (24-32); TOTAL PROTEIN 5.8 G/DL (6.4-8.2); TRIGLYCERIDES 37 MG/DL (20-135); eGFR > 90 ML/MIN
[2019-01-13 04:21] LABS: % IRON SATURATION 6 % (11-46); IRON 15 UG/DL (49-151); TOTAL IRON BINDING CAPACITY 246 UG/DL (259-388)
--- NOTE | 2019-01-13 05:31 | NUR ---
all shift pt has refused her passy-patricia valve. she has been on the vent since around 1900. she refused to go back on passy-patricia and appears to be anxious that it will not work while she is sleeping or trying to sleep. education provided, but pt continues to refuse.
--- NOTE | 2019-01-13 06:18 | NUR ---
Problems reprioritized. Patient report given, questions answered & plan of care reviewed with George QUARLES.
--- NOTE | 2019-01-13 06:22 | NUR ---
Patient in room ICU 2043. I have received report from Flako QUARLES and had the opportunity to ask questions and assume patient care.
[2019-01-13 07:17] LABS: ANISOCYTOSIS 2+; LARGE PLATELETS FEW; PLATELET ESTIMATE INCREASED
[2019-01-13] MEDS: enoxaparin 100mg/ml syringe SUBCUT SCH ×2 (07:58→20:27)
[2019-01-13] MEDS: famotidine/PF 10 mg/ml inj IV SCH ×2 (07:58→20:27)
[2019-01-13] MEDS: LIDOcaine 4% (40 mg/ml) topical solution 50ml TP SCH (07:59)
[2019-01-13] MEDS: proCHLORperazine 10 MG/2 ml inj IV PRN ×2 (08:13→22:38)
--- NOTE | 2019-01-13 08:22 | NUR ---
Patient switched to Passi-[place] valve Addendum: 01/13/19 at 0822 by Isaac Alarcon RN Amended: Links added.
--- NOTE | 2019-01-13 11:30 | NUR ---
PICC nurse, Clary, came to replace PICC line in left arm. Tip of PICC line sent to lab for culturing, per order from Dr. Dumont. PICC unable to place new line. Patient without IV at this point in time. Dr. Dumont made aware. PICC line RN will return this afternoon to try again.
--- NOTE | 2019-01-13 11:38 | NUR ---
Dr. Dumont and multidiscplinary team rounded on patient. Dr. Dumont ordered home medication of clonazepam to be restarted. Iron to be ordered by pharmacy. Made aware of changes over the weekend. PICC line to be changed out today in the same arm. Addendum: 01/13/19 at 1319 by Isaac Alarcon RN Dr. Dumont also ordered that if patient is taking clonazepam oral dissolving tablets. Dr. Dumont states to not give IV Ativan while patient is receiving clonazepam. Also states to be very cautious in giving IV dilaudid while patient is receiving clonazepam.
[2019-01-13] MEDS: CLONAZEPAM 0.25 MG oral disentigrating tablet (ODT) PO SCH ×2 (12:46→20:49)
--- NOTE | 2019-01-13 15:57 | NUR ---
pic line nurse attempted to place pic line from 11 to 1230 and from 3-4. Nurse at Bedside for procedure. Unable to get to vent because nurse on right side and in sterile field. vent checked after procedure. Addendum: 01/13/19 at 1558 by Doe Manning RT Amended: Links added.
--- NOTE | 2019-01-13 16:01 | NUR ---
Multiple attempts at PICC insertion. Unable to thread PICC in left cephalic vein, PICC catheter cut to midline lenth of 20cm dressings labeled appropriately and sign hung at head of bed stating NOT a central line but a midline catheter in place. Dr Garrido notified as well as pharmacy of central line status change. MANUELA QUARLES
[2019-01-13] MEDS: iron sucrose complex injection 100 MG in normal saline 100ml IV soln 95 ML IV SCH (16:04)
[2019-01-13] MEDS ORDERED: Dextrose 10%-water IV solution 1,000 ML IV PRN (16:26)
--- NOTE | 2019-01-13 16:58 | NUR ---
F/u: Pt central line has been pulled per ID and PICC RN unable to place central line; pt only has midline now for nutrition. Pt tolerating TF at trickle rate currently. Not able to meet pt extreme protein/kcal needs without fluid overloading w/ PPN and unable to meet needs enterally at this time given gentle EN advancement r/t EJ perforation risk. PPN recs below; will monitor for GLU changes given drastic decrease in DEX delivery 558g TPN vs 180g PPN at goal rates. Reassessment: Pt tolerating JTF and TPN at goal. New PALB pending tomorrow. No leak per MD note following dye administration. No leak noted per MD note. RD notified RN that dye is contraindicated given potential for mitochondrial toxicity. Bile leak is noted though unsure etiology per MD. Moderate BM 01/11 per EMR. Na up to 130. Will monitor for nutrition support adjustment recs pending new PALB and JTF tolerance. IF enteral leak resumes and persists will transfer to [place] per MD. Recommendations: 1) Continuous 2:1 TPN using Clinimix E 5/15 for 24 hours increase to 155 mL/hr to provide adequate protein and calories: 3720mL total volume, 186g AA, and 558g dextrose with dextrose load 4.19 mg/kg/min. 2) Separate lipids using total of 120mL 20% intralipids to run for 12 hours at 10mL/hr to provide 24g lipids and 240 kcal (8% kcal from fat) 3) TPN and lipids to provide total of 2137 non-protein kcal and 2877 total kcal 4) Daily weights; PALB 5) Continue t rickle J tube feeds at 30 ml/hr with vital high protein 6) PPN per midline while no central line; using Clinimix E 4.25/5 2L bag at 150ml/hr goal. Initiate at 75ml/hr since tolerating TPN w/ higher DEX loading at 155ml/hr previous goal. If tolerated Q12 advance to goal. Separate lipid infusions not to change from prior infusion 10ml/hr Q12 hour daily. To provide 3600ml fluid, 153g AA, 180g DEX(1.41mg/kg/min), and 852 total non-protein kcals. Addendum: 01/13/19 at [address] Amended: Links added. Addendum: 01/13/19 at [address] Recommendations: 1) Continuous 2:1 TPN using Clinimix E 5/15 for 24 hours increase to 155 mL/hr to provide adequate protein and calories: 3720mL total volume, 186g AA, and 558g dextrose with dextrose load 4.19 mg/kg/min. 2) Separate lipids using total of 120mL 20% intralipids to run for 12 hours at 10mL/hr to provide 24g lipids and 240 kcal (8% kcal from fat) 3) TPN and lipids to provide total of 2137 non-protein kcal and 2877 total kcal 4) Daily weights; PALB / 5) Continue t rickle J tube feeds at 30 ml/hr with vital high protein 6) PPN per midline while no central line; using Clinimix E 4.25/5 2L bag at 150ml/hr goal. RD d/w pharmacy; per clinical pharmacist OK to initiate at 150ml/hr goal since tolerating TPN w/ higher DEX loading at 155ml/hr previously. Separate lipid infusions not to change from prior infusion 10ml/hr Q12 hours daily. To provide 3600ml fluid, 153g AA, 180g DEX(1.41mg/kg/min), and 852 total non-protein kcals.
[2019-01-13] MEDS: MVI, adult No.4 with vit. K 10 ML in normal saline 500ml IV soln 500 ML IV SCH ×2 (17:15)
--- NOTE | 2019-01-13 18:29 | NUR ---
Problems reprioritized. Patient report given, questions answered & plan of care reviewed with Ynes QUARLES.
--- NOTE | 2019-01-13 18:30 | NUR ---
Patient in room ICU 2043. I have received report from Isaac QUARLES and had the opportunity to ask questions and assume patient care.
[2019-01-13] MEDS: [UNRECOGNIZED DRUG - OTHER] IV SCH (19:05)
[2019-01-13] MEDS: fat emulsion IV bag 120 ML IV SCH (19:05)
[2019-01-13] MEDS: LYTES IV SCH (19:05)
[2019-01-13] MEDS: CALCIUM IV SCH (19:05)
[2019-01-13] MEDS: D5W IV SCH (19:05)
[2019-01-13] MEDS: diatr meglu/diatrizoate 30ml oral sol.-(3 dose) bottle PO SCH (20:29)
[2019-01-13] MEDS: diphenhydrAMINE 50 mg/ml inj IV PRN (21:06)
--- NOTE | 2019-01-13 23:00 | NUR ---
Pt refused 2299 passey patricia trial, asked to remain on vent for night. Educated on the importance of being off the ventilator, pt still refusing. Addendum: 01/13/19 at 2355 by Ynes Stinson RN Amended: Links added.
--- NOTE | 2019-01-13 23:22 | NUR ---
TALKED TO PT ABOUT TRYING TO GO ON PASSY MEG VALVE AND TAKING A BREAK FROM THE VENT FOR A FEW HOURS, PT REFUSED AND WANTED TO STAY ON VENT WHILE SHE REST, ROBINA CASSIDY INFORMED.
[2019-01-14] VITALS (24 sets, daily range): BP systolic 95–169; BP diastolic 47–104
[2019-01-14] MEDS ORDERED: VANCOMYCIN LEVEL IV ONE (01:30)
--- NOTE | 2019-01-14 01:35 | NUR ---
Assisted patient up out of bed with three person assist to bedside commode. Switched to Pass-patricia by RT for transfer to commode, tolerated well. Returned to bed without incident. Encouraged by both nursing and RT to remain off ventilator. Pt insisted on being placed back on ventilator.
[2019-01-14] MEDS: HYDROmorphone inj. 0.5 MG/0.5 ML DISP.SYRIN IV PRN ×4 (02:22→14:46)
[2019-01-14] MEDS: VANCOmycin 1250MG/NS 250ml Bag 250 ML IV SCH (02:44)
[2019-01-14 03:02] LABS: VANCOMYCIN,TROUGH 6.8 UG/ML (6.0-14.0)
--- NOTE | 2019-01-14 04:16 | NUR ---
Pt placed on passy-patricia valve by RT per patient request. Tolerating well.
[2019-01-14 05:22] LABS: ALANINE AMINOTRANSFERASE 98 U/L (12-78); ALBUMIN 1.9 G/DL (3.4-5.0); ALBUMIN/GLOBULIN RATIO 0.4 (1.1-1.5); ALKALINE PHOSPHATASE 225 IU/L (46-116); ANION GAP 9 (8-16); ASPARTATE AMINO TRANSFERASE 39 U/L (10-37); BILIRUBIN,TOTAL 0.3 MG/DL (0.1-1.0); CALCIUM 9.1 MG/DL (8.5-10.1); CHLORIDE 93 MMOL/L (99-107); CREATININE 0.33 MG/DL (0.40-0.90); GLUCOSE 98 MG/DL (70-104); MAGNESIUM 1.6 MG/DL (1.5-2.4); PHOSPHORUS 5.1 MG/DL (2.3-4.5); POTASSIUM 4.6 MMOL/L (3.5-5.1); SODIUM 125 MMOL/L (135-145); TOTAL CARBON DIOXIDE 23.2 MMOL/L (24-32); TOTAL PROTEIN 6.4 G/DL (6.4-8.2); eGFR > 90 ML/MIN
[2019-01-14 06:13] LABS: BLOOD UREA NITROGEN 14 MG/DL (7-18); BUN/CREATININE RATIO 42.4 (6.6-38.0)
--- NOTE | 2019-01-14 06:37 | NUR ---
Problems reprioritized. Patient report given, questions answered & plan of care reviewed with Keisha QUARLES.
[2019-01-14 06:39] LABS: BASOPHILS # (AUTO) 0.1 X10'3 (0-0.2); BASOPHILS % (AUTO) 0.4 % (0-1); LYMPHOCYTES # (AUTO) 0.7 X10'3 (1.1-4.8); MEAN CORPUSCULAR HEMOGLOBIN 30.3 PG (27.0-31.0); MEAN CORPUSCULAR HGB CONC 32.6 g/dL (33.0-36.5); MONOCYTES # (AUTO) 1.8 X10'3 (0-0.9)
[2019-01-14 06:41] LABS: EOSINOPHILS % (AUTO) 0.1 % (0-6); HEMATOCRIT 31.6 % (35.0-45.0); HEMOGLOBIN 10.3 g/dl (12.0-16.0); LYMPHOCYTES % (AUTO) 3.8 % (21-51); MEAN CORPUSCULAR VOLUME 93.2 FL (78-98); MEAN PLATELET VOLUME 7.7 FL (7.4-10.4); MONOCYTES % (AUTO) 9.4 % (2-12); NEUTROPHILS # (AUTO) 16.6 X10'3 (1.8-7.7); NEUTROPHILS % (AUTO) 86.3 % (42-75); PLATELET COUNT 828 X10'3 (140-440); RED BLOOD COUNT 3.39 X10'6 (4.20-5.60); RED CELL DISTRIBUTION WIDTH 19.1 % (11.5-14.5); WHITE BLOOD COUNT 19.2 X10'3 (4.5-11.0)
--- NOTE | 2019-01-14 06:48 | NUR ---
Patient in room ICU 2043. I have received report from Gil QUARLES and had the opportunity to ask questions and assume patient care.
[2019-01-14] MEDS: enoxaparin 100mg/ml syringe SUBCUT SCH ×2 (07:26→19:35)
[2019-01-14] MEDS: famotidine/PF 10 mg/ml inj IV SCH ×2 (07:26→19:34)
[2019-01-14] MEDS: CLONAZEPAM 0.25 MG oral disentigrating tablet (ODT) PO SCH ×3 (07:26→20:24)
[2019-01-14] MEDS: TRACE ELEMENT IV SCH ×2 (07:27→19:37)
[2019-01-14] MEDS: LYTES IV SCH ×2 (07:27→19:37)
[2019-01-14] MEDS: [UNRECOGNIZED DRUG - OTHER] IV SCH (07:27)
[2019-01-14] MEDS: diatr meglu/diatrizoate 30ml oral sol.-(3 dose) bottle PO SCH ×2 (07:27→21:00)
[2019-01-14] MEDS: D5W IV SCH ×2 (07:27→19:37)
[2019-01-14] MEDS: CALCIUM IV SCH ×2 (07:27→19:37)
[2019-01-14] MEDS ORDERED: ipratropium/albuterol 3ml nebule NEB ONE (07:45)
[2019-01-14] MEDS: LIDOcaine 4% (40 mg/ml) topical solution 50ml TP SCH (08:00)
[2019-01-14] MEDS: iron sucrose complex injection 100 MG in normal saline 100ml IV soln 95 ML IV SCH (09:14)
--- NOTE | 2019-01-14 09:44 | NUR ---
in frequent contact with CT, they have another patient from the ER at this time and can not take this patient at this time. Gastroview medication for contrast is up to date and patient will receive one more dose before we go down for the scan per mD order and protocol.
--- NOTE | 2019-01-14 10:05 | NUR ---
CT called again to make me aware that they were still backed up with patients and that they would call me as soon as they are ready. updated
[2019-01-14] MEDS ORDERED: HYDROmorphone 1 mg/ml syringe ONE ×3 (10:25→19:23)
[2019-01-14] MEDS: MVI, adult No.4 with vit. K 10 ML in normal saline 500ml IV soln 500 ML IV SCH ×2 (10:29)
--- NOTE | 2019-01-14 10:50 | NUR ---
updated POC with Dr. Dumont during rounds, patients tube feeding remains off for CT scan and per neal we will resume tube feeding and tpn together when patient returns from test until nutrition needs and labs are readdressed. updated MD that WBC is elevated today, sodium is low at 125, all drains remain in place without issues. 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
--- NOTE | 2019-01-14 12:44 | NUR ---
Reassessment: Pt tolerating PPN at goal. Na decreased to 125 but D10 was also started yesterday at 155ml/hr. Likely fluid related since receiving 7320ml in nutrition alone w/ new D10 order. Tube feeds held today since pending CT to further determine GI integrity. IF no leak TF will resume and likely continue to advance. Pt would still benefit from PN;ideally TPN, in addition to EN given extreme catabolism and unable to meet protein/energy needs w/ EN alone given risk re-perforation. Will monitor for CT results. Recommendations: 1) Continuous 2:1 TPN using Clinimix E 5/15 for 24 hours increase to 155 mL/hr to provide adequate protein and calories: 3720mL total volume, 186g AA, and 558g dextrose with dextrose load 4.19 mg/kg/min. 2) Separate lipids using total of 120mL 20% intralipids to run for 12 hours at 10mL/hr to provide 24g lipids and 240 kcal (8% kcal from fat) 3) TPN and lipids to provide total of 2137 non-protein kcal and 2877 total kcal 4) Daily weights; PALB 5) Continue t rickle J tube feeds at 30 ml/hr with vital high protein 6) PPN per midline while no central line; using Clinimix E 4.25/5 2L bag at 150ml/hr goal. [place] d/w pharmacy; per clinical pharmacist OK to initiate at 150ml/hr goal since tolerating TPN w/ higher DEX loading at 155ml/hr previously. Separate lipid infusions not to change from prior infusion 10ml/hr Q12 hours daily. To provide 3600ml fluid, 153g AA, 180g DEX(1.41mg/kg/min), and 852 total non-protein kcals. Addendum: 01/14/19 at [address] Amended: Links added.
[2019-01-14] MEDS: ondansetron/PF 4mg/2ml inj IV PRN ×2 (12:50→21:42)
[2019-01-14] MEDS: proCHLORperazine 10 MG/2 ml inj IV PRN (12:50)
[2019-01-14] MEDS ORDERED: iohexol 300mg/ml 100ml inj. ONE (13:15)
--- NOTE | 2019-01-14 14:29 | NUR ---
returned to icu room [address] with this patient, patient tolerated scan well.
--- NOTE | 2019-01-14 18:26 | NUR ---
Problems reprioritized. Patient report given, questions answered & plan of care reviewed with Drake QUARLES.
--- NOTE | 2019-01-14 18:30 | NUR ---
Patient in room ICU 2043. I have received report from Keisha QUARLES and had the opportunity to ask questions and assume patient care.
[2019-01-14] MEDS: fat emulsion IV bag 120 ML IV SCH (19:37)
[2019-01-14] MEDS: [UNRECOGNIZED DRUG - OTHER] IV SCH (19:37)
[2019-01-14] MEDS ORDERED: diatr meglu/diatrizoate 30ml oral sol.-(3 dose) bottle PO SCH (21:00)
--- NOTE | 2019-01-14 21:30 | NUR ---
Pt was put on the passy patricia valve. Pt is showing signs of anxiety about not being on the ventilator. Her respirations and O2 sats remain the same. Her HR and BP slightly rise. Pt was educated about why being on the passy patricia valve is good for her, and that she needs to be on it for as long as she can bear it.
[2019-01-14] MEDS: diphenhydrAMINE 50 mg/ml inj IV PRN (21:42)
--- NOTE | 2019-01-14 23:00 | NUR ---
Pt was put back onto the ventilator as she was feeling anxious and tired.
[2019-01-15] VITALS (24 sets, daily range): BP systolic 83–157; BP diastolic 40–102
[2019-01-15] MEDS: HYDROmorphone 1 mg/ml syringe IV PRN ×5 (02:32→20:46)
[2019-01-15] MEDS: LYTES IV SCH (02:45)
[2019-01-15] MEDS: TRACE ELEMENT IV SCH (02:45)
[2019-01-15] MEDS: D5W IV SCH (02:45)
[2019-01-15] MEDS: [UNRECOGNIZED DRUG - OTHER] IV SCH (02:45)
[2019-01-15] MEDS: CALCIUM IV SCH (02:45)
[2019-01-15] MEDS: proCHLORperazine 10 MG/2 ml inj IV PRN ×2 (03:57→12:57)
--- NOTE | 2019-01-15 05:00 | NUR ---
Pt was on Passy patricia valve from 0400 to 0500. She began to feel anxious and was requesting to be put back onto the vent. She was hooked back up to the ventilator, and fell asleep pretty quickly.
--- NOTE | 2019-01-15 06:21 | NUR ---
Problems reprioritized. Patient report given, questions answered & plan of care reviewed with Gayla QUARLES.
[2019-01-15 06:33] LABS: BASOPHILS % (AUTO) 0.3 % (0-1); EOSINOPHILS % (AUTO) 0.1 % (0-6); HEMATOCRIT 28.4 % (35.0-45.0); HEMOGLOBIN 9.4 g/dl (12.0-16.0); LYMPHOCYTES # (AUTO) 0.5 X10'3 (1.1-4.8); LYMPHOCYTES % (AUTO) 3.2 % (21-51); MEAN CORPUSCULAR HEMOGLOBIN 30.4 PG (27.0-31.0); MEAN CORPUSCULAR HGB CONC 33.1 g/dL (33.0-36.5); MEAN CORPUSCULAR VOLUME 91.9 FL (78-98); MEAN PLATELET VOLUME 6.9 FL (7.4-10.4); MONOCYTES # (AUTO) 1.5 X10'3 (0-0.9); MONOCYTES % (AUTO) 8.9 % (2-12); NEUTROPHILS # (AUTO) 14.5 X10'3 (1.8-7.7); NEUTROPHILS % (AUTO) 87.5 % (42-75); PLATELET COUNT 725 X10'3 (140-440); RED BLOOD COUNT 3.09 X10'6 (4.20-5.60); RED CELL DISTRIBUTION WIDTH 18.4 % (11.5-14.5); WHITE BLOOD COUNT 16.6 X10'3 (4.5-11.0)
[2019-01-15 06:52] LABS: ALANINE AMINOTRANSFERASE 82 U/L (12-78); ALBUMIN 1.7 G/DL (3.4-5.0); ALBUMIN/GLOBULIN RATIO 0.4 (1.1-1.5); ALKALINE PHOSPHATASE 205 IU/L (46-116); ANION GAP 8 (8-16); ASPARTATE AMINO TRANSFERASE 27 U/L (10-37); BILIRUBIN,TOTAL 0.2 MG/DL (0.1-1.0); BLOOD UREA NITROGEN 15 MG/DL (7-18); BUN/CREATININE RATIO 45.5 (6.6-38.0); CALCIUM 8.6 MG/DL (8.5-10.1); CHLORIDE 90 MMOL/L (99-107); CREATININE 0.33 MG/DL (0.40-0.90); GLUCOSE 133 MG/DL (70-104); MAGNESIUM 1.5 MG/DL (1.5-2.4); PHOSPHORUS 4.6 MG/DL (2.3-4.5); POTASSIUM 4.7 MMOL/L (3.5-5.1); SODIUM 122 MMOL/L (135-145); TOTAL CARBON DIOXIDE 23.7 MMOL/L (24-32); TOTAL PROTEIN 5.9 G/DL (6.4-8.2); eGFR > 90 ML/MIN
[2019-01-15] MEDS: ondansetron/PF 4mg/2ml inj IV PRN ×3 (07:02→21:33)
[2019-01-15] MEDS: iron sucrose complex injection 100 MG in normal saline 100ml IV soln 95 ML IV SCH (07:11)
[2019-01-15] MEDS: famotidine/PF 10 mg/ml inj IV SCH ×2 (07:11→20:14)
[2019-01-15] MEDS: CLONAZEPAM 0.25 MG oral disentigrating tablet (ODT) PO SCH ×3 (07:25→20:14)
[2019-01-15] MEDS: enoxaparin 100mg/ml syringe SUBCUT SCH ×2 (07:31→19:56)
[2019-01-15] MEDS: LIDOcaine 4% (40 mg/ml) topical solution 50ml TP SCH (08:00)
[2019-01-15] MEDS: MVI, adult No.4 with vit. K 10 ML in normal saline 500ml IV soln 500 ML IV SCH ×2 (09:14)
[2019-01-15] MEDS: LORazepam 2 mg/ml vial IV PRN ×2 (09:25→14:36)
[2019-01-15] MEDS: ceFAZolin 1GM/D5W- ADD-VANTAGE 50 ML IV SCH ×2 (11:16→16:41)
--- NOTE | 2019-01-15 11:40 | NUR ---
Reassessment: MD discussed during patient rounds that PPN will be weaned and tube feeding is okay to increase to goal rate. Discussed recommended goal rate with bedside RN. Per MD note water flush to be given, sodium is currently low at 122 mg/dl. 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 Patient had urinary urea nitrogen obtained, the result was 20.8 and per nitrogen balance calculation patient is in positive nitrogen balance to support anabolism. Will continue to follow. Recommendations: 1) Continue tube feedings with Vital high protein per J-tube, ok by MD to advance to goal rate, d/w RN goal rate is 70 ml/hr to meet needs. This will provide total volume 1680 ml, 1680 cals, 147 gm protein, and 1411 ml water. 2) No water flush per MD, sodium is 122 3) Prealbumin q Sunday and 4) daily weights 5) weaning of PPN per MD Addendum: 01/15/19 at [address] Amended: Links added.
--- NOTE | 2019-01-15 14:12 | NUR ---
WOUND VAC EDUCATION PROVIDED BY [facility]OUND [facility] 1. Patient instructed to call the Wound Center or their Home Health Agency immediately if: * They notice a change in the color or amount of the fluid in the canister. * Their wound looks more red than usual or has a foul smell. * The skin around their wound looks reddened or irritated. * The dressing feels loose or appears to be loose. * They experience any increase or changes in their pain. * The alarm will not turn off. 2. Patient instructed that they should not be disconnected from suction for more than 2 hours at a time. * If they are not able to get the suction back on, they need to remove the dressing and take all of the foam out of the wound. * Then moisten sterile gauze with normal saline and place on/in the wound. * Change the dressing once a day until arrangements have been made to replace the wound vac dressing. 3. Patient instructed to turn the wound vac machine OFF and call 911 or go to the ED immediately if their canister fills rapidly with blood. 4. If any of these occur while in the hospital tell a nurse immediately. Addendum: 01/15/19 at 1412 by Shannon Huffman RN Amended: Links added.
--- NOTE | 2019-01-15 16:33 | NUR ---
Pt left arm reddened and midline not drawing and is oozing. Per ok to place a PICC on right arm and remove midline, pt refusing PICC at this time, 20g PIV placed to right forearm and midline removed on left arm, manual pressure held and sterile 4x4 with tegaderm placed over site. Pt denies any unanswered questions, problems or complaints. Pt has been taken off PPN and placed on tube feed, will reevaluate the need for PICC in the morning. MANUELA QUARLES
[2019-01-15] MEDS: diphenhydrAMINE 50 mg/ml inj IV PRN (21:45)
[2019-01-16] VITALS (27 sets, daily range): BP systolic 77–161; BP diastolic 8–104
[2019-01-16] MEDS: ceFAZolin 1GM/D5W- ADD-VANTAGE 50 ML IV SCH ×4 (01:20→23:02)
[2019-01-16] MEDS ORDERED: VANCOMYCIN LEVEL IV ONE (01:30)
[2019-01-16] MEDS: HYDROmorphone 1 mg/ml syringe IV PRN ×4 (04:20→20:26)
[2019-01-16 04:27] LABS: BASOPHILS # (AUTO) 0.1 X10'3 (0-0.2); EOSINOPHILS % (AUTO) 0.2 % (0-6); MEAN PLATELET VOLUME 7.6 FL (7.4-10.4); WHITE BLOOD COUNT 16.8 X10'3 (4.5-11.0)
[2019-01-16 04:29] LABS: BASOPHILS % (AUTO) 0.4 % (0-1); HEMATOCRIT 29.9 % (35.0-45.0); HEMOGLOBIN 9.8 g/dl (12.0-16.0); LYMPHOCYTES # (AUTO) 0.9 X10'3 (1.1-4.8); LYMPHOCYTES % (AUTO) 5.6 % (21-51); MEAN CORPUSCULAR HEMOGLOBIN 30.7 PG (27.0-31.0); MEAN CORPUSCULAR HGB CONC 32.8 g/dL (33.0-36.5); MEAN CORPUSCULAR VOLUME 93.7 FL (78-98); MONOCYTES # (AUTO) 2.1 X10'3 (0-0.9); MONOCYTES % (AUTO) 12.5 % (2-12); NEUTROPHILS # (AUTO) 13.7 X10'3 (1.8-7.7); NEUTROPHILS % (AUTO) 81.3 % (42-75); PLATELET COUNT 882 X10'3 (140-440); RED CELL DISTRIBUTION WIDTH 18.7 % (11.5-14.5)
[2019-01-16 04:42] LABS: ALANINE AMINOTRANSFERASE 80 U/L (12-78); ALBUMIN 1.9 G/DL (3.4-5.0); ALBUMIN/GLOBULIN RATIO 0.4 (1.1-1.5); ALKALINE PHOSPHATASE 217 IU/L (46-116); ANION GAP 7 (8-16); ASPARTATE AMINO TRANSFERASE 30 U/L (10-37); BILIRUBIN,TOTAL 0.2 MG/DL (0.1-1.0); BLOOD UREA NITROGEN 14 MG/DL (7-18); BUN/CREATININE RATIO 35.9 (6.6-38.0); CALCIUM 8.8 MG/DL (8.5-10.1); CHLORIDE 91 MMOL/L (99-107); CREATININE 0.39 MG/DL (0.40-0.90); GLUCOSE 92 MG/DL (70-104); MAGNESIUM 1.5 MG/DL (1.5-2.4); PHOSPHORUS 4.3 MG/DL (2.3-4.5); POTASSIUM 4.2 MMOL/L (3.5-5.1); SODIUM 123 MMOL/L (135-145); TOTAL CARBON DIOXIDE 25.2 MMOL/L (24-32); TOTAL PROTEIN 6.3 G/DL (6.4-8.2); TRIGLYCERIDES 50 MG/DL (20-135); eGFR > 90 ML/MIN
[2019-01-16] MEDS: enoxaparin 100mg/ml syringe SUBCUT SCH ×2 (07:09→12:33)
[2019-01-16] MEDS: famotidine/PF 10 mg/ml inj IV SCH ×2 (07:41→20:26)
[2019-01-16] MEDS: ondansetron/PF 4mg/2ml inj IV PRN ×2 (07:41→17:14)
[2019-01-16] MEDS: CLONAZEPAM 0.25 MG oral disentigrating tablet (ODT) PO SCH ×3 (07:43→21:23)
[2019-01-16] MEDS: LIDOcaine 4% (40 mg/ml) topical solution 50ml TP SCH (07:57)
[2019-01-16] MEDS: iron sucrose complex injection 100 MG in normal saline 100ml IV soln 95 ML IV SCH (07:59)
[2019-01-16] MEDS: LORazepam 2 mg/ml vial IV PRN ×2 (08:33→15:33)
[2019-01-16 09:19] LABS: SODIUM,URINE RANDOM 110 MEQ/L
[2019-01-16 10:02] LABS: OSMOLALITY UA 435 MOSM/K (50-1400)
--- NOTE | 2019-01-16 10:52 | NUR ---
D/Eric Newby; patient has not met protocol and Dr. Tim falcon to [place]/C lianet. Patient continues to receive tube feeding via J-tube.
[2019-01-16 11:07] LABS: ANISOCYTOSIS 2+; PLATELET ESTIMATE INCREASED; TOTAL CELLS COUNTED 100
[2019-01-16 11:08] LABS: POLYCHROMASIA 1+
[2019-01-16] MEDS ORDERED: midazolam 2 mg/2 ml injection ONE (11:08)
[2019-01-16 11:09] LABS: SCHISTOCYTES 1+; SPHEROCYTES 1+
[2019-01-16 11:10] LABS: BURR CELLS FEW
[2019-01-16] MEDS ORDERED: fentaNYL/PF 50MCG/1 ML 2ML syringe ONE (11:24)
[2019-01-16] MEDS ORDERED: fentaNYL/PF 50MCG/1 ML 2ML syringe IV PRN (11:25)
[2019-01-16] MEDS ORDERED: LIDOcaine 1% (10mg/ml) 2ml vial SQ ONE (11:25)
--- NOTE | 2019-01-16 12:22 | NUR ---
Dr. Dumont at bedside, he took the chest tube out without any complication. Dr. Winkler at bedside, he place a new pigtail chest tube to L-upper back. No complication during procedure, drainage sample sent to lab. Chest tube to cont -20 suction. ok to ambulate with waterseal.
--- NOTE | 2019-01-16 12:33 | NUR ---
Hold Lovenox until tomorrow per Dr. Dumont. Chest tube placed earlier.
--- NOTE | 2019-01-16 15:15 | NUR ---
Juana from 0800 to 1400; patient tolerated well but "feeling tired." Patient back on at 1515.
--- NOTE | 2019-01-16 18:26 | NUR ---
[place] documentation: I have reviewed and agree with all interventions, assessments performed and documented by Alma Delia QUARLES.
--- NOTE | 2019-01-16 18:26 | NUR ---
Problems reprioritized. Patient report given, questions answered & plan of care reviewed with Drake QUARLES.
--- NOTE | 2019-01-16 18:45 | NUR ---
Pt is sitting up comfortably in bed watching TV. Pt is off of the ventilator and has the passy patricia valve on, with a hiflo of 10L covering the valve. Pt is calmly discussing the day, and how she was able to stay on the valve for around 10 hours without exhaustion. She is requesting that she be put back onto the ventilator, saying that she is getting tired. However her respirations are 24/min, O2 sats at 100%, she is calm and not looking anxious, HR is ST at 111 (but this is her normal rate when awake), BP is 145/88. Pt has been educated on the importance of trying to stay off of the ventilator, but she is persistent in being put back on the ventilator for the evening while she sleeps. RT has been informed.
--- NOTE | 2019-01-16 19:30 | NUR ---
Patient in room ICU 2043. I have received report from Nataliia QUARLES and had the opportunity to ask questions and assume patient care.
[2019-01-16] MEDS: lactobacillus rhamnosus 10,000 MMU CELLS/CAPSULE PO SCH (20:26)
[2019-01-16] MEDS: diphenhydrAMINE 50 mg/ml inj IV PRN (23:00)
[2019-01-17] VITALS (23 sets, daily range): BP systolic 92–148; BP diastolic 43–96
[2019-01-17] MEDS: HYDROmorphone 1 mg/ml syringe IV PRN ×6 (00:45→22:27)
[2019-01-17 03:25] LABS: BASOPHILS # (AUTO) 0.1 X10'3 (0-0.2); BASOPHILS % (AUTO) 0.4 % (0-1); EOSINOPHILS % (AUTO) 0.1 % (0-6); HEMOGLOBIN 9.3 g/dl (12.0-16.0); LYMPHOCYTES # (AUTO) 0.9 X10'3 (1.1-4.8); MONOCYTES # (AUTO) 1.8 X10'3 (0-0.9); NEUTROPHILS % (AUTO) 80.6 % (42-75)
[2019-01-17 03:27] LABS: HEMATOCRIT 27.6 % (35.0-45.0); MEAN CORPUSCULAR HEMOGLOBIN 31.4 PG (27.0-31.0); MEAN CORPUSCULAR HGB CONC 33.7 g/dL (33.0-36.5); MEAN CORPUSCULAR VOLUME 93.1 FL (78-98); MEAN PLATELET VOLUME 7.2 FL (7.4-10.4); MONOCYTES % (AUTO) 12.9 % (2-12); NEUTROPHILS # (AUTO) 11.4 X10'3 (1.8-7.7); PLATELET COUNT 785 X10'3 (140-440); RED BLOOD COUNT 2.96 X10'6 (4.20-5.60); RED CELL DISTRIBUTION WIDTH 18.9 % (11.5-14.5); WHITE BLOOD COUNT 14.2 X10'3 (4.5-11.0)
[2019-01-17 03:44] LABS: ALANINE AMINOTRANSFERASE 63 U/L (12-78); ALBUMIN 1.8 G/DL (3.4-5.0); ALBUMIN/GLOBULIN RATIO 0.4 (1.1-1.5); ALKALINE PHOSPHATASE 186 IU/L (46-116); ANION GAP 5 (8-16); ASPARTATE AMINO TRANSFERASE 27 U/L (10-37); BILIRUBIN,TOTAL 0.2 MG/DL (0.1-1.0); BLOOD UREA NITROGEN 11 MG/DL (7-18); BUN/CREATININE RATIO 29.7 (6.6-38.0); CALCIUM 8.7 MG/DL (8.5-10.1); CHLORIDE 92 MMOL/L (99-107); CREATININE 0.37 MG/DL (0.40-0.90); GLUCOSE 96 MG/DL (70-104); MAGNESIUM 1.5 MG/DL (1.5-2.4); PHOSPHORUS 4.1 MG/DL (2.3-4.5); POTASSIUM 4.3 MMOL/L (3.5-5.1); SODIUM 124 MMOL/L (135-145); TOTAL CARBON DIOXIDE 27.4 MMOL/L (24-32); eGFR > 90 ML/MIN
[2019-01-17 04:04] LABS: LARGE PLATELETS FEW; PLATELET ESTIMATE INCREASED
[2019-01-17 04:05] LABS: ANISOCYTOSIS 2+; BURR CELLS 1+; POLYCHROMASIA FEW; SCHISTOCYTES FEW
[2019-01-17] MEDS: ondansetron/PF 4mg/2ml inj IV PRN ×2 (05:29→11:30)
--- NOTE | 2019-01-17 06:21 | NUR ---
Problems reprioritized. Patient report given, questions answered & plan of care reviewed with Elmer QUARLES.
[2019-01-17] MEDS: ceFAZolin 1GM/D5W- ADD-VANTAGE 50 ML IV SCH ×2 (07:38→16:43)
[2019-01-17] MEDS: enoxaparin 100mg/ml syringe SUBCUT SCH ×2 (07:40→19:48)
[2019-01-17] MEDS: famotidine/PF 10 mg/ml inj IV SCH ×2 (07:40→19:48)
[2019-01-17] MEDS: lactobacillus rhamnosus 10,000 MMU CELLS/CAPSULE PO SCH ×2 (07:40→19:48)
[2019-01-17] MEDS: CLONAZEPAM 0.25 MG oral disentigrating tablet (ODT) PO SCH ×3 (07:40→21:48)
[2019-01-17] MEDS: LIDOcaine 4% (40 mg/ml) topical solution 50ml TP SCH (07:41)
[2019-01-17] MEDS: iron sucrose complex injection 100 MG in normal saline 100ml IV soln 95 ML IV SCH (08:20)
--- NOTE | 2019-01-17 09:30 | NUR ---
Passy-[place] Valve placed on patient; tolerating well on 30%Fi02 trach collar
--- NOTE | 2019-01-17 11:19 | NUR ---
Dr. Dumont requesting LUQ drain to be removed. Skyler Garland NP from IR consulted and will come by later this afternoon to assess the removal of the drain.
[2019-01-17] MEDS: LORazepam 2 mg/ml vial IV PRN ×2 (12:35→19:47)
--- NOTE | 2019-01-17 13:08 | NUR ---
LUQ drain removed with the assistance of Skyler Garland NP from IR. Patient tolerated well. No drainage noted; dressing placed.
--- NOTE | 2019-01-17 17:30 | NUR ---
Patient placed back on ventilator.
--- NOTE | 2019-01-17 18:23 | NUR ---
Problems reprioritized. Patient report given, questions answered & plan of care reviewed with Noc shift RN.
[2019-01-17] MEDS: proCHLORperazine 10 MG/2 ml inj IV PRN (20:16)
[2019-01-17] MEDS: diphenhydrAMINE 50 mg/ml inj IV PRN (22:27)
[2019-01-18] VITALS (24 sets, daily range): BP systolic 92–153; BP diastolic 44–97
[2019-01-18] MEDS: ceFAZolin 1GM/D5W- ADD-VANTAGE 50 ML IV SCH ×3 (00:32→16:10)
[2019-01-18] MEDS: LORazepam 2 mg/ml vial IV PRN ×3 (02:03→18:01)
[2019-01-18] MEDS: HYDROmorphone 1 mg/ml syringe IV PRN ×5 (02:33→20:10)
[2019-01-18] MEDS: ondansetron/PF 4mg/2ml inj IV PRN ×2 (04:24→20:10)
[2019-01-18] MEDS: LIDOcaine 4% (40 mg/ml) topical solution 50ml TP SCH (06:29)
[2019-01-18] MEDS: famotidine/PF 10 mg/ml inj IV SCH ×2 (07:56→20:09)
[2019-01-18] MEDS: lactobacillus rhamnosus 10,000 MMU CELLS/CAPSULE PO SCH ×2 (07:56→20:09)
[2019-01-18] MEDS: CLONAZEPAM 0.25 MG oral disentigrating tablet (ODT) PO SCH ×3 (07:56→21:15)
[2019-01-18] MEDS: enoxaparin 100mg/ml syringe SUBCUT SCH ×2 (07:57→20:09)
--- NOTE | 2019-01-18 08:15 | NUR ---
Patient placed on Passy-Dmitri Valve
[2019-01-18] MEDS: proCHLORperazine 10 MG/2 ml inj IV PRN (08:39)
[2019-01-18] MEDS: iron sucrose complex injection 100 MG in normal saline 100ml IV soln 95 ML IV SCH (08:40)
--- NOTE | 2019-01-18 10:10 | NUR ---
Reassessment: Pt now receiving TF as sole source of nutrition and tolerating at goal rate. Na gradually improving per MD notes, currently at 124 today. Per I&O 40 mL out from chest tube 01/17. ST has been consulted for BSS. LBM 01/17. Will continue to follow. Recommendations: 1) Continue tube feedings with Vital high protein per J-tube, ok by MD to advance to goal rate, d/w RN goal rate is 70 ml/hr to meet needs. This will provide total volume 1680 ml, 1680 cals, 147 gm protein, and 1411 ml water. 2) No water flush per MD, sodium is 122 3) Prealbumin q Sunday and 4) daily weights Addendum: 01/18/19 at [address] Amended: Links added.
--- NOTE | 2019-01-18 18:16 | NUR ---
Problems reprioritized. Patient report given, questions answered & plan of care reviewed with Cristina QUARLES.
[2019-01-18] MEDS: diphenhydrAMINE 50 mg/ml inj IV PRN (21:15)
[2019-01-19] VITALS (24 sets, daily range): BP systolic 93–155; BP diastolic 48–93
[2019-01-19] MEDS: proCHLORperazine 10 MG/2 ml inj IV PRN (00:29)
[2019-01-19] MEDS: HYDROmorphone 1 mg/ml syringe IV PRN ×6 (04:08→20:08)
[2019-01-19] MEDS: LORazepam 2 mg/ml vial IV PRN ×4 (06:08→21:37)
--- NOTE | 2019-01-19 06:28 | NUR ---
Patient in room ICU 2043. I have received report from ROBINA Evans and had the opportunity to ask questions and assume patient care.
[2019-01-19] MEDS: CLONAZEPAM 0.25 MG oral disentigrating tablet (ODT) PO SCH ×3 (07:41→20:10)
[2019-01-19] MEDS: enoxaparin 100mg/ml syringe SUBCUT SCH ×2 (07:42→20:09)
[2019-01-19] MEDS: famotidine/PF 10 mg/ml inj IV SCH ×2 (07:42→20:07)
[2019-01-19] MEDS: ceFAZolin 1GM/D5W- ADD-VANTAGE 50 ML IV SCH ×3 (07:42→15:51)
[2019-01-19] MEDS: lactobacillus rhamnosus 10,000 MMU CELLS/CAPSULE PO SCH ×2 (07:42→20:10)
[2019-01-19] MEDS: LIDOcaine 4% (40 mg/ml) topical solution 50ml TP SCH (08:00)
[2019-01-19] MEDS: iron sucrose complex injection 100 MG in normal saline 100ml IV soln 95 ML IV SCH (10:08)
[2019-01-19] MEDS: HYDROcodone/acetaminophen 10/325mg tab PO PRN (12:55)
[2019-01-19] MEDS: ondansetron/PF 4mg/2ml inj IV PRN ×2 (14:07→21:37)
--- NOTE | 2019-01-19 18:23 | NUR ---
Problems reprioritized. Patient report given, questions answered & plan of care reviewed with ROBINA Baker.
--- NOTE | 2019-01-19 18:30 | NUR ---
Patient in room ICU 2043. I have received report from ROBINA Gray and had the opportunity to ask questions and assume patient care.
--- NOTE | 2019-01-19 19:45 | NUR ---
Educated pt on need to start pushing Ativan and Dilaudid further out between doses and only asking for it when in pain or anxious, it is not a timed med, it is PRN.
[2019-01-19] MEDS: diphenhydrAMINE 50 mg/ml inj IV PRN (21:12)
[2019-01-20] VITALS (24 sets, daily range): BP systolic 91–157; BP diastolic 52–97
[2019-01-20] MEDS: ceFAZolin 1GM/D5W- ADD-VANTAGE 50 ML IV SCH ×3 (00:06→16:15)
[2019-01-20] MEDS: HYDROmorphone 1 mg/ml syringe IV PRN ×5 (00:37→21:21)
--- NOTE | 2019-01-20 01:00 | NUR ---
Pt woke up requesting Dilaudid and to go back on the ventilator. Dilaudid given, consulted with charge nurse about pt going back on the vent and he recommended I page RT for eval. Pt SpO2 97% on Trachmist collar 10L with 30% FiO2 and no signs of respiratory distress. RT paged to evaluate and determined no medically necessary reason for the vent. Pt insisted and was placed on the vent in spontaneous mode, she expressed frustration that she was not placed on a set rate.
--- NOTE | 2019-01-20 02:10 | NUR ---
Pt states she feels rested up and is ready to go off the vent and be switched back to trach collar, RT transferred back over with no complications
[2019-01-20 02:27] LABS: BASOPHILS # (AUTO) 0.1 X10'3 (0-0.2); BASOPHILS % (AUTO) 0.5 % (0-1); EOSINOPHILS % (AUTO) 0 % (0-6); HEMATOCRIT 31.4 % (35.0-45.0); HEMOGLOBIN 10.3 g/dl (12.0-16.0); LYMPHOCYTES # (AUTO) 0.8 X10'3 (1.1-4.8); LYMPHOCYTES % (AUTO) 5.8 % (21-51); MEAN CORPUSCULAR HEMOGLOBIN 30.7 PG (27.0-31.0); MEAN CORPUSCULAR HGB CONC 32.9 g/dL (33.0-36.5); MEAN CORPUSCULAR VOLUME 93.4 FL (78-98); MEAN PLATELET VOLUME 7.3 FL (7.4-10.4); MONOCYTES # (AUTO) 1.5 X10'3 (0-0.9); MONOCYTES % (AUTO) 10.4 % (2-12); NEUTROPHILS # (AUTO) 11.8 X10'3 (1.8-7.7); NEUTROPHILS % (AUTO) 83.3 % (42-75); PLATELET COUNT 923 X10'3 (140-440); RED BLOOD COUNT 3.36 X10'6 (4.20-5.60); RED CELL DISTRIBUTION WIDTH 18.9 % (11.5-14.5); WHITE BLOOD COUNT 14.2 X10'3 (4.5-11.0)
[2019-01-20 02:48] LABS: ALANINE AMINOTRANSFERASE 44 U/L (12-78); ALBUMIN 2.1 G/DL (3.4-5.0); ALBUMIN/GLOBULIN RATIO 0.5 (1.1-1.5); ALKALINE PHOSPHATASE 153 IU/L (46-116); ANION GAP 7 (8-16); ASPARTATE AMINO TRANSFERASE 22 U/L (10-37); BILIRUBIN,TOTAL 0.1 MG/DL (0.1-1.0); BLOOD UREA NITROGEN 11 MG/DL (7-18); BUN/CREATININE RATIO 25.6 (6.6-38.0); CHLORIDE 95 MMOL/L (99-107); CREATININE 0.43 MG/DL (0.40-0.90); GLUCOSE 102 MG/DL (70-104); MAGNESIUM 1.4 MG/DL (1.5-2.4); SODIUM 130 MMOL/L (135-145); TOTAL PROTEIN 6.6 G/DL (6.4-8.2); TRIGLYCERIDES 57 MG/DL (20-135); eGFR > 90 ML/MIN
[2019-01-20] MEDS: LORazepam 2 mg/ml vial IV PRN ×3 (03:37→19:18)
[2019-01-20] MEDS: magnesium 2GM in 50ml NS 50 ML IV PRN (04:37)
--- NOTE | 2019-01-20 06:03 | NUR ---
Problems reprioritized. Patient report given, questions answered & plan of care reviewed with ROBINA Gray.
--- NOTE | 2019-01-20 06:16 | NUR ---
Patient in room ICU 2043. I have received report from ROBINA Baker and had the opportunity to ask questions and assume patient care.
[2019-01-20] MEDS: famotidine/PF 10 mg/ml inj IV SCH ×2 (07:52→19:51)
[2019-01-20] MEDS: enoxaparin 100mg/ml syringe SUBCUT SCH ×2 (07:52→19:51)
[2019-01-20] MEDS: CLONAZEPAM 0.25 MG oral disentigrating tablet (ODT) PO SCH ×3 (07:52→20:04)
[2019-01-20] MEDS: lactobacillus rhamnosus 10,000 MMU CELLS/CAPSULE PO SCH ×2 (07:52→19:51)
[2019-01-20] MEDS: LIDOcaine 4% (40 mg/ml) topical solution 50ml TP SCH (08:00)
--- NOTE | 2019-01-20 10:09 | NUR ---
Wound vac changed by WOC RN. Patterson catheter discontinued. Pt tolerated well.
[2019-01-20] MEDS: HYDROcodone/acetaminophen 10/325mg tab PO PRN (10:59)
[2019-01-20] MEDS: iron sucrose complex injection 100 MG in normal saline 100ml IV soln 95 ML IV SCH (11:03)
[2019-01-20] MEDS ORDERED: alteplase 1 mg/ml 5ml syringe ICATH ONE ×2 (11:15→11:25)
--- NOTE | 2019-01-20 14:00 | NUR ---
IR Dr. Ware at bedside to instill tPA in pigtail chest tube. Order received to leave chest tube to H20 seal for four hours and then resume suction as ordered.
--- NOTE | 2019-01-20 15:31 | NUR ---
Pt's trach capped by RT. Pt required 2 L/min O2 via nasal cannula to maintain SpO2. Pt stated that she is is experiencing some anxiety.
--- NOTE | 2019-01-20 15:39 | NUR ---
PT PLACED ON TRACH CAP AT 1520 WITH 2LPM NC. VSS HR 101, RR 19, SPO2 98%. AFTER ABOUT 10 MINUTES PT ASKED TO BE PLACED BACK ON PASSY-MEG VALVE W/ 30% COOL AEROSOL. ADVISED PT THAT SHE SHOULD WEAR IT FOR 30 MINUTES AND THAT I WOULD TALK TO DR TRONCOSO TO SEE IF IT WAS OKAY TO SWITCH BACK.
--- NOTE | 2019-01-20 16:07 | NUR ---
PT SWITCHED BACK TO THE PMV WITH 30% COOL AEROSOL. VSS HR 104 SPO2 97% RR 24
[2019-01-20] MEDS: ondansetron/PF 4mg/2ml inj IV PRN (16:15)
--- NOTE | 2019-01-20 17:17 | NUR ---
[facility] was changed after it was tipped over during transfer to [facility]. CT drainage was at 180mL.
--- NOTE | 2019-01-20 18:30 | NUR ---
Patient in room ICU 2043. I have received report from ROBINA Gray and had the opportunity to ask questions and assume patient care.
--- NOTE | 2019-01-20 19:13 | NUR ---
cap placed on patients trach and 2 liter nc placed. patient eleazar well
--- NOTE | 2019-01-20 19:43 | NUR ---
Pt insistent on switching back to the PMV, she is not having any respiratory issues at this time, but claims she is too anxious while capped. I did push her to a full 30 minutes and then switched her back over to the trachmist 10L 30% FiO2..
[2019-01-20] MEDS: tamsulosin 0.4mg capsule PO SCH (20:03)
[2019-01-20] MEDS: proCHLORperazine 10 MG/2 ml inj IV PRN (20:04)
--- NOTE | 2019-01-20 21:00 | NUR ---
Pt states she has to be straight cathed right now as she is having immense bladder pressure. 250ml drained and bladder scanner shows a post void of 26.
[2019-01-21] VITALS (24 sets, daily range): BP systolic 86–142; BP diastolic 40–89
[2019-01-21] MEDS: diphenhydrAMINE 50 mg/ml inj IV PRN ×2 (00:11→23:33)
[2019-01-21] MEDS: ceFAZolin 1GM/D5W- ADD-VANTAGE 50 ML IV SCH ×4 (00:11→23:33)
[2019-01-21] MEDS: ondansetron/PF 4mg/2ml inj IV PRN ×4 (00:22→23:33)
[2019-01-21] MEDS: HYDROmorphone 1 mg/ml syringe IV PRN ×3 (04:48→17:59)
--- NOTE | 2019-01-21 06:12 | NUR ---
Problems reprioritized. Patient report given, questions answered & plan of care reviewed with ROBINA Gray.
--- NOTE | 2019-01-21 06:27 | NUR ---
Patient in room ICU 2043. I have received report from ROBINA Baker and had the opportunity to ask questions and assume patient care.
[2019-01-21] MEDS: HYDROcodone/acetaminophen 10/325mg tab PO PRN ×2 (06:33→17:11)
[2019-01-21] MEDS: iron sucrose complex injection 100 MG in normal saline 100ml IV soln 95 ML IV SCH (07:43)
[2019-01-21] MEDS: CLONAZEPAM 0.25 MG oral disentigrating tablet (ODT) PO SCH ×3 (07:59→20:34)
[2019-01-21] MEDS: LIDOcaine 4% (40 mg/ml) topical solution 50ml TP SCH (08:00)
[2019-01-21] MEDS: famotidine/PF 10 mg/ml inj IV SCH ×2 (08:00→20:34)
[2019-01-21] MEDS: lactobacillus rhamnosus 10,000 MMU CELLS/CAPSULE PO SCH ×2 (08:00→20:33)
[2019-01-21] MEDS: enoxaparin 100mg/ml syringe SUBCUT SCH ×2 (08:01→20:33)
[2019-01-21] MEDS: LORazepam 2 mg/ml vial IV PRN ×3 (08:43→23:33)
--- NOTE | 2019-01-21 09:19 | NUR ---
pt c/o of urinary urgency but unable to void and has h/o retention, pt had flanagan catheter removed 01/20/19 and has been straight cathed prn, mild distention noted, Dr. Dumont notified and ordered to insert flanagan catheter, 16F flanagan catheter inserted with 290 cc of clear yellow urine, pt tolerated procedure well denies pain or discomfort, will continue to monitor.
--- NOTE | 2019-01-21 09:30 | NUR ---
Trach discontinued by Dr. Owens. Pt tolerating room air well. She is tachypneic with respiratory rate 32 bpm, SpO2 95% on room air. Pt reports that she "feels fine" and is texting on her phone.
[2019-01-21] MEDS: proCHLORperazine 10 MG/2 ml inj IV PRN (11:43)
[2019-01-21] MEDS ORDERED: cyanocobalamin 1,000 mcg/ml inj IM SCH (11:45)
[2019-01-21] MEDS: venlafaxine XR 75mg capsule (Q24H) PO SCH (12:50)
--- NOTE | 2019-01-21 18:13 | NUR ---
Problems reprioritized. Patient report given, questions answered & plan of care reviewed with Olivia QUARLES.
--- NOTE | 2019-01-21 18:15 | NUR ---
Patient in room ICU 2043. I have received report from ROBINA Gray and had the opportunity to ask questions and assume patient care.
[2019-01-21] MEDS: tamsulosin 0.4mg capsule PO SCH (20:33)
[2019-01-22] VITALS (24 sets, daily range): BP systolic 85–118; BP diastolic 42–72
[2019-01-22] MEDS: HYDROmorphone 1 mg/ml syringe IV PRN ×2 (00:07→06:16)
--- NOTE | 2019-01-22 06:29 | NUR ---
Problems reprioritized. Patient report given, questions answered & plan of care reviewed with ROBINA Marc.
[2019-01-22] MEDS: ceFAZolin 1GM/D5W- ADD-VANTAGE 50 ML IV SCH ×3 (07:14→23:47)
[2019-01-22] MEDS: famotidine/PF 10 mg/ml inj IV SCH ×2 (07:15→20:46)
[2019-01-22] MEDS: venlafaxine XR 75mg capsule (Q24H) PO SCH (07:15)
[2019-01-22] MEDS: CLONAZEPAM 0.25 MG oral disentigrating tablet (ODT) PO SCH ×3 (07:15→20:45)
[2019-01-22] MEDS: lactobacillus rhamnosus 10,000 MMU CELLS/CAPSULE PO SCH ×2 (07:15→20:45)
[2019-01-22] MEDS: enoxaparin 100mg/ml syringe SUBCUT SCH ×2 (07:16→20:45)
[2019-01-22] MEDS: LIDOcaine 4% (40 mg/ml) topical solution 50ml TP SCH (07:45)
[2019-01-22] MEDS ORDERED: cyanocobalamin 500mcg tablet JT SCH (08:00)
[2019-01-22] MEDS: iron sucrose complex injection 100 MG in normal saline 100ml IV soln 95 ML IV SCH (08:03)
[2019-01-22] MEDS: LORazepam 2 mg/ml vial IV PRN ×2 (08:37→17:27)
[2019-01-22] MEDS: HYDROcodone/acetaminophen 10/325mg tab PO PRN ×2 (12:26→18:20)
--- NOTE | 2019-01-22 16:47 | NUR ---
Reassessment: Patient's tube feeding via J-tube tolerated at goal rate. Patient's PO intake of pureed meals is still poor, would benefit from continuing J tube feedings while patient builds her appetite and adjusts to eating PO again with her esophagojejunostomy. Patient received IM vitamin B12, indicated by no stomach to aid in absorption of dietary vitamin B12. Patient will need written diet education re: dumping syndrome and eating small frequent meals. Will continue to follow. Recommendations: 1) Continue tube feedings with Vital high protein per J-tube goal rate is 70 ml/hr to meet needs. This will provide total volume 1680 ml, 1680 cals, 147 gm protein, and 1411 ml water. 2) No water flush per MD, sodium is 130 3) Prealbumin q Sunday and 4) daily weights 5) continue pureed diet 6) provide education prior to discharge Addendum: 01/22/19 at [address] Amended: Links added.
--- NOTE | 2019-01-22 18:20 | NUR ---
Patient in room ICU 2043. I have received report from ROBINA Marc and had the opportunity to ask questions and assume patient care. Pt is awake A&O x4, denies CP, dizziness, pain. Pt was decanulated yesterday, she is in 2L of oxygen via NC. She has flanagan in place due to urinary retention, wound vac, chest tube, and PICC line. Pt is in isolation for CRE and VRE. Will continue to monitor.
[2019-01-22] MEDS: tamsulosin 0.4mg capsule PO SCH (20:46)
[2019-01-22] MEDS: diphenhydrAMINE 50 mg/ml inj IV PRN (20:57)
[2019-01-23] VITALS (24 sets, daily range): BP systolic 94–121; BP diastolic 46–76
[2019-01-23] MEDS: HYDROcodone/acetaminophen 10/325mg tab PO PRN ×4 (03:44→20:11)
[2019-01-23] MEDS: LORazepam 2 mg/ml vial IV PRN ×2 (05:28→17:40)
--- NOTE | 2019-01-23 06:42 | NUR ---
Problems reprioritized. Patient report given, questions answered & plan of care reviewed with ROBINA Cano. Patient stable at shift change
--- NOTE | 2019-01-23 06:45 | NUR ---
Patient in room ICU 2043. I have received report from ROBINA Mobley and had the opportunity to ask questions and assume patient care.
[2019-01-23] MEDS: LIDOcaine 4% (40 mg/ml) topical solution 50ml TP SCH (08:00)
[2019-01-23] MEDS: venlafaxine XR 75mg capsule (Q24H) PO SCH (08:17)
[2019-01-23] MEDS: lactobacillus rhamnosus 10,000 MMU CELLS/CAPSULE PO SCH ×2 (08:17→20:10)
[2019-01-23] MEDS: CLONAZEPAM 0.25 MG oral disentigrating tablet (ODT) PO SCH ×3 (08:17→20:10)
[2019-01-23] MEDS: famotidine/PF 10 mg/ml inj IV SCH ×2 (08:18→20:11)
[2019-01-23] MEDS: enoxaparin 100mg/ml syringe SUBCUT SCH ×2 (08:18→20:09)
[2019-01-23] MEDS: ceFAZolin 1GM/D5W- ADD-VANTAGE 50 ML IV SCH ×2 (08:35→17:32)
[2019-01-23 09:28] LABS: BASOPHILS # (AUTO) 0.1 X10'3 (0-0.2); BASOPHILS % (AUTO) 0.5 % (0-1); EOSINOPHILS % (AUTO) 0.1 % (0-6); HEMATOCRIT 32.8 % (35.0-45.0); HEMOGLOBIN 10.8 g/dl (12.0-16.0); LYMPHOCYTES % (AUTO) 7.1 % (21-51); MEAN CORPUSCULAR HEMOGLOBIN 31.1 PG (27.0-31.0); MEAN CORPUSCULAR VOLUME 94.3 FL (78-98); MEAN PLATELET VOLUME 6.8 FL (7.4-10.4); MONOCYTES # (AUTO) 0.9 X10'3 (0-0.9); MONOCYTES % (AUTO) 6.8 % (2-12); NEUTROPHILS # (AUTO) 11.6 X10'3 (1.8-7.7); NEUTROPHILS % (AUTO) 85.5 % (42-75); PLATELET COUNT 855 X10'3 (140-440); RED BLOOD COUNT 3.48 X10'6 (4.20-5.60); RED CELL DISTRIBUTION WIDTH 19.2 % (11.5-14.5); WHITE BLOOD COUNT 13.6 X10'3 (4.5-11.0)
[2019-01-23 09:48] LABS: ALANINE AMINOTRANSFERASE 104 U/L (12-78); ALBUMIN 2.3 G/DL (3.4-5.0); ALBUMIN/GLOBULIN RATIO 0.5 (1.1-1.5); ALKALINE PHOSPHATASE 142 IU/L (46-116); ANION GAP 6 (8-16); ASPARTATE AMINO TRANSFERASE 54 U/L (10-37); BILIRUBIN,TOTAL 0.1 MG/DL (0.1-1.0); BLOOD UREA NITROGEN 16 MG/DL (7-18); BUN/CREATININE RATIO 34.8 (6.6-38.0); CALCIUM 9.2 MG/DL (8.5-10.1); CHLORIDE 97 MMOL/L (99-107); CREATININE 0.46 MG/DL (0.40-0.90); GLUCOSE 138 MG/DL (70-104); MAGNESIUM 1.4 MG/DL (1.5-2.4); POTASSIUM 4.3 MMOL/L (3.5-5.1); PREALBUMIN 18.9 MG/DL (19-36); SODIUM 132 MMOL/L (135-145); TOTAL CARBON DIOXIDE 28.6 MMOL/L (24-32); TOTAL PROTEIN 6.6 G/DL (6.4-8.2); TRIGLYCERIDES 70 MG/DL (20-135); eGFR > 90 ML/MIN
[2019-01-23 10:32] LABS: ANISOCYTOSIS 2+; PLATELET ESTIMATE INCREASED
[2019-01-23 10:33] LABS: SCHISTOCYTES FEW
[2019-01-23 10:34] LABS: POLYCHROMASIA FEW
[2019-01-23] MEDS: ondansetron/PF 4mg/2ml inj IV PRN ×2 (11:22→20:13)
[2019-01-23] MEDS: magnesium 2GM in 50ml NS 50 ML IV PRN (11:23)
[2019-01-23] MEDS ORDERED: tPA-cathflo 2 MG/2 ml IV flush IVF ONE ×2 (16:30→18:00)
--- NOTE | 2019-01-23 18:00 | NUR ---
Patient in room ICU 2043. I have received report from ROBINA Cano and had the opportunity to ask questions and assume patient care.
[2019-01-23] MEDS: tamsulosin 0.4mg capsule PO SCH (20:10)
[2019-01-23] MEDS: diphenhydrAMINE 50 mg/ml inj IV PRN (21:02)
[2019-01-24] VITALS (21 sets, daily range): BP systolic 91–129; BP diastolic 49–80
[2019-01-24] MEDS: LORazepam 2 mg/ml vial IV PRN ×4 (01:26→22:05)
[2019-01-24] MEDS: ceFAZolin 1GM/D5W- ADD-VANTAGE 50 ML IV SCH ×4 (01:27→23:49)
[2019-01-24] MEDS: HYDROcodone/acetaminophen 10/325mg tab PO PRN ×5 (03:44→23:49)
[2019-01-24 04:00] LABS: BASOPHILS % (AUTO) 0.4 % (0-1); HEMOGLOBIN 9.8 g/dl (12.0-16.0); NEUTROPHILS # (AUTO) 8.3 X10'3 (1.8-7.7); RED BLOOD COUNT 3.11 X10'6 (4.20-5.60)
[2019-01-24 04:01] LABS: EOSINOPHILS % (AUTO) 0.4 % (0-6); HEMATOCRIT 29.5 % (35.0-45.0); LYMPHOCYTES % (AUTO) 9.9 % (21-51); MEAN CORPUSCULAR HEMOGLOBIN 31.5 PG (27.0-31.0); MEAN CORPUSCULAR HGB CONC 33.3 g/dL (33.0-36.5); MEAN CORPUSCULAR VOLUME 94.7 FL (78-98); MEAN PLATELET VOLUME 7.5 FL (7.4-10.4); MONOCYTES # (AUTO) 1.1 X10'3 (0-0.9); MONOCYTES % (AUTO) 10.3 % (2-12); PLATELET COUNT 799 X10'3 (140-440); RED CELL DISTRIBUTION WIDTH 18.9 % (11.5-14.5); WHITE BLOOD COUNT 10.5 X10'3 (4.5-11.0)
[2019-01-24 04:02] LABS: ALBUMIN 2.1 G/DL (3.4-5.0); ANION GAP 4 (8-16); BLOOD UREA NITROGEN 15 MG/DL (7-18); BUN/CREATININE RATIO 29.4 (6.6-38.0); CALCIUM 8.5 MG/DL (8.5-10.1); CHLORIDE 97 MMOL/L (99-107); CREATININE 0.51 MG/DL (0.40-0.90); GLUCOSE 176 MG/DL (70-104); POTASSIUM 4.1 MMOL/L (3.5-5.1); SODIUM 131 MMOL/L (135-145); TOTAL CARBON DIOXIDE 29.9 MMOL/L (24-32); eGFR > 90 ML/MIN
[2019-01-24 04:42] LABS: ANISOCYTOSIS 2+; PLATELET ESTIMATE INCREASED
[2019-01-24] MEDS: ondansetron/PF 4mg/2ml inj IV PRN ×2 (04:51→15:35)
--- NOTE | 2019-01-24 06:34 | NUR ---
Problems reprioritized. Patient report given, questions answered & plan of care reviewed with ROBINA Pearson .
--- NOTE | 2019-01-24 06:38 | NUR ---
Patient in room ICU 2043. I have received report from WATSON QUARLES and had the opportunity to ask questions and assume patient care.
[2019-01-24] MEDS: LIDOcaine 4% (40 mg/ml) topical solution 50ml TP SCH (07:31)
[2019-01-24] MEDS: CLONAZEPAM 0.25 MG oral disentigrating tablet (ODT) PO SCH ×3 (07:48→20:41)
[2019-01-24] MEDS: lactobacillus rhamnosus 10,000 MMU CELLS/CAPSULE PO SCH ×2 (07:48→19:15)
[2019-01-24] MEDS: enoxaparin 100mg/ml syringe SUBCUT SCH ×2 (07:48→19:16)
[2019-01-24] MEDS: famotidine/PF 10 mg/ml inj IV SCH ×2 (07:48→19:18)
[2019-01-24] MEDS: venlafaxine XR 75mg capsule (Q24H) PO SCH (07:48)
--- NOTE | 2019-01-24 15:40 | NUR ---
RN CALLED AND SPOKE WITH BLANCA WILCOXICIAN ABOUT HAVING 6 SMALL MEALS A DAY INSTEAD OF 3 LARGE MEALS. BLANCA SEGURA WILL SPEAK TO KITCHEN AND SEE WHAT CAN BE ARRANGED.
--- NOTE | 2019-01-24 16:38 | NUR ---
Reassessment: Patient's tube feeding via J-tube tolerated at goal rate. Patient's PO intake improving somewhat to 25-50% mechanical soft foods with ground meats. Patient would benefit from small frequent meals, met with patient at bedside to obtain preferences for the small meals, d/w RN and dietary. Patient given written education for dumping syndrome and eating with esophagojejunostomy. pt verbalized understanding. Will continue J tube feedings to help meet needs while patient builds appetite and ability to eat PO. Patient received IM vitamin B12, indicated by no stomach to aid in absorption of dietary vitamin B12. Will continue to follow. Recommendations: 1) Continue tube feedings with Vital high protein per J-tube goal rate is 70 ml/hr to meet needs. This will provide total volume 1680 ml, 1680 cals, 147 gm protein, and 1411 ml water. 2) No water flush per MD, sodium is 130 3) Prealbumin q Sunday and 4) daily weights 5) continue mechanical soft diet with ground meats 6) honor preferences, send small frequent meals Addendum: 01/24/19 at [address] Amended: Links added.
--- NOTE | 2019-01-24 18:11 | NUR ---
Problems reprioritized. Patient report given, questions answered & plan of care reviewed with MANUEL QUARLES.
--- NOTE | 2019-01-24 18:25 | NUR ---
Patient in room ICU 2043. I have received report from ROBINA Pearson and had the opportunity to ask questions and assume patient care.
--- NOTE | 2019-01-24 18:54 | NUR ---
Realase held. PICC Lumens patent and drawing
[2019-01-24] MEDS: tamsulosin 0.4mg capsule PO SCH (20:41)
[2019-01-25] VITALS (23 sets, daily range): BP systolic 87–139; BP diastolic 46–87
--- NOTE | 2019-01-25 04:35 | NUR ---
Patient in bed resting at this time without any sign of distress. PRN Ativan was administered for anxiety and verbalized relief upon reassessment. Patient also received [place] for pain of 8/10. Upon reassessment, verbalized pain was a 2 upon reassessment. Vital signs are stable as patient continues to be in sinus. PICC line intact, patent and in place. PICC dressing CDI. F/C in place and patent and draining clear yellow urine. Wound vac suction maintained at 125mmng with no drainage in canister thus far. Pigtail catheter intact with dressing in place.Turned and reposition patient Q2hrs and as needed. Care needs will continue to be attended to and patient's safety measures in place
--- NOTE | 2019-01-25 06:00 | NUR ---
Patient in room ICU 2043. I have received report from Arnaldo QUARLES and had the opportunity to ask questions and assume patient care.
[2019-01-25] MEDS: ondansetron/PF 4mg/2ml inj IV PRN ×2 (07:18→21:37)
[2019-01-25] MEDS: ceFAZolin 1GM/D5W- ADD-VANTAGE 50 ML IV SCH ×3 (07:24→23:09)
[2019-01-25] MEDS: famotidine/PF 10 mg/ml inj IV SCH ×2 (07:27→19:19)
[2019-01-25] MEDS: HYDROcodone/acetaminophen 10/325mg tab PO PRN ×3 (07:32→23:10)
[2019-01-25] MEDS: enoxaparin 100mg/ml syringe SUBCUT SCH ×2 (07:33→19:20)
[2019-01-25] MEDS: venlafaxine XR 75mg capsule (Q24H) PO SCH (07:33)
[2019-01-25] MEDS: lactobacillus rhamnosus 10,000 MMU CELLS/CAPSULE PO SCH ×2 (07:34→19:19)
[2019-01-25] MEDS: LIDOcaine 4% (40 mg/ml) topical solution 50ml TP SCH (08:00)
[2019-01-25] MEDS: CLONAZEPAM 0.25 MG oral disentigrating tablet (ODT) PO SCH ×3 (09:10→21:37)
[2019-01-25] MEDS: proCHLORperazine 10 MG/2 ml inj IV PRN ×2 (10:38→19:19)
[2019-01-25] MEDS: LORazepam 2 mg/ml vial IV PRN ×2 (15:52→21:37)
--- NOTE | 2019-01-25 18:00 | NUR ---
Problems reprioritized. Patient report given, questions answered & plan of care reviewed with Radha QUARLES.
[2019-01-25] MEDS: tamsulosin 0.4mg capsule PO SCH (21:37)
[2019-01-26] VITALS (24 sets, daily range): BP systolic 94–143; BP diastolic 42–85
[2019-01-26] MEDS: HYDROcodone/acetaminophen 10/325mg tab PO PRN ×4 (03:09→18:48)
[2019-01-26] MEDS: ceFAZolin 1GM/D5W- ADD-VANTAGE 50 ML IV SCH ×2 (07:19→16:02)
[2019-01-26] MEDS: CLONAZEPAM 0.25 MG oral disentigrating tablet (ODT) PO SCH ×3 (07:19→21:06)
[2019-01-26] MEDS: lactobacillus rhamnosus 10,000 MMU CELLS/CAPSULE PO SCH ×2 (07:19→19:35)
[2019-01-26] MEDS: LORazepam 2 mg/ml vial IV PRN ×3 (07:20→21:06)
[2019-01-26] MEDS: famotidine/PF 10 mg/ml inj IV SCH ×2 (07:20→19:35)
[2019-01-26] MEDS: venlafaxine XR 75mg capsule (Q24H) PO SCH (07:20)
[2019-01-26] MEDS: enoxaparin 100mg/ml syringe SUBCUT SCH ×2 (07:22→19:35)
[2019-01-26] MEDS: LIDOcaine 4% (40 mg/ml) topical solution 50ml TP SCH (08:00)
--- NOTE | 2019-01-26 11:38 | NUR ---
Reassessment: Pt PO remains low 25% avg past 2 days but does fluctuate; ate 100% breakfast this AM per RN. Per RN, MD would like to wean TF once good PO persists w/ 5-[address] recs continuing TF until improved PO more consistent in order to meet needs; pt is receiving 5 small meals daily w/ preferences taken and relayed to dietary. PALB increasing. LBM 01/25. Will continue to monitor. Recommendations: 1) Continue tube feedings with Vital high protein per J-tube goal rate is 70 ml/hr to meet needs. This will provide total volume 1680 ml, 1680 cals, 147 gm protein, and 1411 ml water. 2) No water flush per MD, sodium is 131 3) Prealbumin q Sunday and 4) daily weights 5) continue mechanical soft diet with ground meats per [employer]ITION[employer] 6) honor preferences, send small frequent meals Addendum: 01/26/19 at [address] Amended: Links added.
[2019-01-26] MEDS: ondansetron/PF 4mg/2ml inj IV PRN (16:02)
--- NOTE | 2019-01-26 18:17 | NUR ---
Patient in room ICU 2043. I have received report from Alisha Adams RN and had the opportunity to ask questions and assume patient care. Pt resting in bed on 1.5LNC with spo2 at 93%, A&Ox4, in sinus rhythm, VSS, no s/s of distress, Left posterior chest tube to suction at 20mmHg, no crepitus, midline abdominal wound vac to suction per orders, no leaking, good seal, tube feedings per provider orders, PICC saline locked. See interventions, eMAR, and EMR for further information. All monitoring alarms audible. Call light in reach. Will continue to monitor.
[2019-01-26] MEDS: tamsulosin 0.4mg capsule PO SCH (21:06)
[2019-01-26] MEDS: diphenhydrAMINE 50 mg/ml inj IV PRN (21:06)
[2019-01-27] VITALS (24 sets, daily range): BP systolic 85–146; BP diastolic 39–91
[2019-01-27] MEDS: ceFAZolin 1GM/D5W- ADD-VANTAGE 50 ML IV SCH ×3 (00:29→15:25)
[2019-01-27] MEDS: HYDROcodone/acetaminophen 10/325mg tab PO PRN ×5 (00:37→20:32)
[2019-01-27] MEDS: LORazepam 2 mg/ml vial IV PRN ×4 (03:18→21:41)
[2019-01-27] MEDS: ondansetron/PF 4mg/2ml inj IV PRN ×2 (03:35→16:20)
[2019-01-27 04:36] LABS: HEMOGLOBIN 10.8 g/dl (12.0-16.0); MEAN PLATELET VOLUME 8.4 FL (7.4-10.4); MONOCYTES # (AUTO) 1.5 X10'3 (0-0.9); NEUTROPHILS # (AUTO) 10.4 X10'3 (1.8-7.7)
[2019-01-27 04:38] LABS: BASOPHILS % (AUTO) 0.3 % (0-1); EOSINOPHILS % (AUTO) 0.1 % (0-6); HEMATOCRIT 33.1 % (35.0-45.0); LYMPHOCYTES # (AUTO) 1.1 X10'3 (1.1-4.8); LYMPHOCYTES % (AUTO) 8.6 % (21-51); MEAN CORPUSCULAR HEMOGLOBIN 31.4 PG (27.0-31.0); MEAN CORPUSCULAR HGB CONC 32.7 g/dL (33.0-36.5); MONOCYTES % (AUTO) 11.5 % (2-12); NEUTROPHILS % (AUTO) 79.5 % (42-75); PLATELET COUNT 737 X10'3 (140-440); RED BLOOD COUNT 3.45 X10'6 (4.20-5.60); WHITE BLOOD COUNT 13.1 X10'3 (4.5-11.0)
[2019-01-27 04:41] LABS: ALANINE AMINOTRANSFERASE 121 U/L (12-78); ALBUMIN 2.5 G/DL (3.4-5.0); ALBUMIN/GLOBULIN RATIO 0.6 (1.1-1.5); ALKALINE PHOSPHATASE 129 IU/L (46-116); ANION GAP 5 (8-16); ASPARTATE AMINO TRANSFERASE 54 U/L (10-37); BILIRUBIN,TOTAL 0.2 MG/DL (0.1-1.0); CALCIUM 9.2 MG/DL (8.5-10.1); CHLORIDE 96 MMOL/L (99-107); GLUCOSE 91 MG/DL (70-104); POTASSIUM 4.1 MMOL/L (3.5-5.1); SODIUM 131 MMOL/L (135-145); TOTAL PROTEIN 6.8 G/DL (6.4-8.2); TRIGLYCERIDES 61 MG/DL (20-135); eGFR > 90 ML/MIN
[2019-01-27 04:45] LABS: BLOOD UREA NITROGEN 14 MG/DL (7-18)
--- NOTE | 2019-01-27 06:22 | NUR ---
Problems reprioritized. Patient report given, questions answered & plan of care reviewed with Mame QUARLES.
--- NOTE | 2019-01-27 06:39 | NUR ---
Patient in room ICU 2043. I have received report from Caitlyn QUARLES and had the opportunity to ask questions and assume patient care. Addendum: 01/27/19 at 0639 by Mame Lopes RN Amended: Links added.
[2019-01-27 06:56] LABS: ANISOCYTOSIS 2+; PLATELET ESTIMATE INCREASED
[2019-01-27] MEDS: famotidine/PF 10 mg/ml inj IV SCH ×2 (07:35→20:31)
[2019-01-27] MEDS: enoxaparin 100mg/ml syringe SUBCUT SCH ×2 (07:35→20:32)
[2019-01-27] MEDS: CLONAZEPAM 0.25 MG oral disentigrating tablet (ODT) PO SCH ×3 (07:35→20:31)
[2019-01-27] MEDS: venlafaxine XR 75mg capsule (Q24H) PO SCH (07:35)
[2019-01-27] MEDS: lactobacillus rhamnosus 10,000 MMU CELLS/CAPSULE PO SCH ×2 (07:35→20:31)
[2019-01-27] MEDS: LIDOcaine 4% (40 mg/ml) topical solution 50ml TP SCH (08:00)
--- NOTE | 2019-01-27 08:41 | NUR ---
Dr. Ashby here to see pt. Ordered CXR which was just done. Pt. resting comfortable with VSS. Call light in reach. Will continue to monitor.
--- NOTE | 2019-01-27 10:35 | NUR ---
Dr. Ureña here to see pt.
--- NOTE | 2019-01-27 10:55 | NUR ---
PT working with patient.
--- NOTE | 2019-01-27 18:11 | NUR ---
Patient in room ICU 2043. I have received report from Mame Chacon RN and had the opportunity to ask questions and assume patient care. Pt in bed with HOB elevated to eat dinner, tube feedings infusing per provider orders, pt on 1LNCwith spo2 at 94%, in sinus rhythm, left posterior pigtail chest tube to suction, no crepitus, no tracheal deviation, no s/s of distress. See interventions, EMR, and eMAR for further information. All monitoring alarms audible. Will continue to monitor.
--- NOTE | 2019-01-27 18:11 | NUR ---
Problems reprioritized. Patient report given, questions answered & plan of care reviewed with Caitlyn QUARLES.
[2019-01-27] MEDS: tamsulosin 0.4mg capsule PO SCH (20:31)
[2019-01-27] MEDS: diphenhydrAMINE 50 mg/ml inj IV PRN (21:41)
[2019-01-28] VITALS (23 sets, daily range): BP systolic 82–130; BP diastolic 40–88
[2019-01-28] MEDS: ceFAZolin 1GM/D5W- ADD-VANTAGE 50 ML IV SCH ×3 (00:09→17:07)
[2019-01-28] MEDS: HYDROcodone/acetaminophen 10/325mg tab PO PRN ×5 (04:43→21:39)
[2019-01-28] MEDS: LORazepam 2 mg/ml vial IV PRN ×3 (04:43→21:39)
--- NOTE | 2019-01-28 06:16 | NUR ---
Problems reprioritized. Patient report given, questions answered & plan of care reviewed with Rachael QUARLES.
[2019-01-28] MEDS: LIDOcaine 4% (40 mg/ml) topical solution 50ml TP SCH (08:00)
[2019-01-28] MEDS: CLONAZEPAM 0.25 MG oral disentigrating tablet (ODT) PO SCH ×3 (08:43→20:46)
[2019-01-28] MEDS: famotidine/PF 10 mg/ml inj IV SCH ×2 (08:44→20:07)
[2019-01-28] MEDS: venlafaxine XR 75mg capsule (Q24H) PO SCH (08:44)
[2019-01-28] MEDS: enoxaparin 100mg/ml syringe SUBCUT SCH ×2 (08:44→20:08)
[2019-01-28] MEDS: lactobacillus rhamnosus 10,000 MMU CELLS/CAPSULE PO SCH ×2 (08:44→20:07)
--- NOTE | 2019-01-28 12:54 | NUR ---
Follow up: met with patient today to discuss food preferences for her several small meals. Dietary sending breakfast, 10:00 meal, lunch, 2:00 meal, and dinner. Each meal is small and pt trying to focus on protein. Made some changes to previous meal schedule that was made last Sunday. Patient wanting cheerios, milk, hard boiled egg with breakfast, Georgian yogurt for 2:00 meal, tuna with crackers for lunch, fruit for 2:00 meal, and chicken breast with mashed potatoes with dinner. Addendum: 01/28/19 at [address] Amended: Links added.
[2019-01-28] MEDS: ondansetron/PF 4mg/2ml inj IV PRN (17:36)
[2019-01-28] MEDS ORDERED: tPA-cathflo 2 MG/2 ml IV flush IVF ONE (18:05)
--- NOTE | 2019-01-28 18:38 | NUR ---
Patient in room ICU 2043. I have received report from ROBINA Cano and had the opportunity to ask questions and assume patient care. Patient awake for bedside report and stable at this time. 0.5L NC with oxygen saturation at 91%. Will continue to monitor closely.
--- NOTE | 2019-01-28 19:08 | NUR ---
Patient refused bath. Patient stated "maybe tomorrow." Educated patient on importance of daily bathing and adequate personal hygiene. Will continue to monitor closely. Addendum: 01/28/19 at 1910 by Dimitri Schneider RN Amended: Links added.
[2019-01-28] MEDS: tamsulosin 0.4mg capsule PO SCH (20:46)
[2019-01-28] MEDS: diphenhydrAMINE 50 mg/ml inj IV PRN (21:40)
--- NOTE | 2019-01-28 22:00 | NUR ---
Attempted to flush rojas lumen of right upper arm PICC line with no advancement of NS IV push. Cath-Wale ordered per provider and administered to rojas lumen at 1900. Attempted to aspirate 4-5mL blood per medication/pharmacy instruction at 1930 with no return blood flow. Waited an additional 120 minutes per medication/pharmacy instruction. Aspirated 4-5 mL blood and then discarded tube at 2230. Flushed with 20 mL NS. Triple lumen PICC asymptomatic, patent, flushes and draws easily. Will continue to monitor closely.
--- NOTE | 2019-01-28 22:12 | NUR ---
Vital Source 1.2 calorie present upon presumption of care. 1375 mL total infused and stopped at 2205. Per Dietary, [facility] is out of Vital Source 1.2 and has been switched to Glucerna with Carb Steady 1.2 as substitute. Pump has been reset and goal rate of 70 mL/hr currently infusing per provider order. Will continue to monitor closely.
--- NOTE | 2019-01-28 23:53 | NUR ---
Patient bed scale removed and replaced with orthopedic trapeze. Patient refused this evenings daily weight. Educated patient on importance of monitoring fluid gain and fluid loss. Patient agreed to be weighed in the morning on standing scale. Addendum: 01/28/19 at 2357 by Dimitri Schneider RN Amended: Links added.
[2019-01-29] VITALS (23 sets, daily range): BP systolic 98–137; BP diastolic 52–95
[2019-01-29] MEDS: ceFAZolin 1GM/D5W- ADD-VANTAGE 50 ML IV SCH ×3 (00:21→16:12)
[2019-01-29] MEDS: HYDROcodone/acetaminophen 10/325mg tab PO PRN ×5 (03:49→21:29)
[2019-01-29] MEDS: LORazepam 2 mg/ml vial IV PRN ×3 (03:50→21:30)
[2019-01-29 04:29] LABS: BASOPHILS # (AUTO) 0.1 X10'3 (0-0.2); BASOPHILS % (AUTO) 0.5 % (0-1); EOSINOPHILS % (AUTO) 0.1 % (0-6); HEMATOCRIT 34.1 % (35.0-45.0); HEMOGLOBIN 11.2 g/dl (12.0-16.0); LYMPHOCYTES # (AUTO) 1.4 X10'3 (1.1-4.8); LYMPHOCYTES % (AUTO) 10.7 % (21-51); MEAN CORPUSCULAR HEMOGLOBIN 31.5 PG (27.0-31.0); MEAN CORPUSCULAR HGB CONC 32.8 g/dL (33.0-36.5); MEAN PLATELET VOLUME 7.8 FL (7.4-10.4); MONOCYTES # (AUTO) 1.7 X10'3 (0-0.9); MONOCYTES % (AUTO) 13.2 % (2-12); NEUTROPHILS # (AUTO) 9.6 X10'3 (1.8-7.7); NEUTROPHILS % (AUTO) 75.5 % (42-75); PLATELET COUNT 689 X10'3 (140-440); RED BLOOD COUNT 3.55 X10'6 (4.20-5.60); RED CELL DISTRIBUTION WIDTH 19.7 % (11.5-14.5); WHITE BLOOD COUNT 12.7 X10'3 (4.5-11.0)
[2019-01-29 04:45] LABS: ALANINE AMINOTRANSFERASE 71 U/L (12-78); ALBUMIN 2.6 G/DL (3.4-5.0); ALBUMIN/GLOBULIN RATIO 0.6 (1.1-1.5); ALKALINE PHOSPHATASE 115 IU/L (46-116); ANION GAP 6 (8-16); ASPARTATE AMINO TRANSFERASE 27 U/L (10-37); BILIRUBIN,TOTAL 0.1 MG/DL (0.1-1.0); BLOOD UREA NITROGEN 16 MG/DL (7-18); BUN/CREATININE RATIO 37.2 (6.6-38.0); CALCIUM 9.7 MG/DL (8.5-10.1); CHLORIDE 99 MMOL/L (99-107); CREATININE 0.43 MG/DL (0.40-0.90); GLUCOSE 87 MG/DL (70-104); MAGNESIUM 1.6 MG/DL (1.5-2.4); PHOSPHORUS 4.7 MG/DL (2.3-4.5); POTASSIUM 4.2 MMOL/L (3.5-5.1); SODIUM 135 MMOL/L (135-145); TOTAL CARBON DIOXIDE 29.6 MMOL/L (24-32); TOTAL PROTEIN 6.7 G/DL (6.4-8.2); eGFR > 90 ML/MIN
[2019-01-29] MEDS: ondansetron/PF 4mg/2ml inj IV PRN ×2 (05:07→16:12)
--- NOTE | 2019-01-29 06:30 | NUR ---
Patient in room ICU 2043. I have received report from ROBINA Ayala and had the opportunity to ask questions and assume patient care.
--- NOTE | 2019-01-29 06:40 | NUR ---
Problems reprioritized. Patient report given, questions answered & plan of care reviewed with ROBINA Quick.
[2019-01-29 06:52] LABS: PLATELET ESTIMATE INCREASED
[2019-01-29 06:53] LABS: ANISOCYTOSIS 2+; LARGE PLATELETS FEW
[2019-01-29] MEDS: CLONAZEPAM 0.25 MG oral disentigrating tablet (ODT) PO SCH ×3 (07:38→20:14)
[2019-01-29] MEDS: lactobacillus rhamnosus 10,000 MMU CELLS/CAPSULE PO SCH ×2 (07:38→20:15)
[2019-01-29] MEDS: venlafaxine XR 75mg capsule (Q24H) PO SCH (07:39)
[2019-01-29] MEDS: enoxaparin 100mg/ml syringe SUBCUT SCH ×2 (07:40→20:18)
[2019-01-29] MEDS: famotidine/PF 10 mg/ml inj IV SCH ×2 (07:40→20:14)
[2019-01-29] MEDS: LIDOcaine 4% (40 mg/ml) topical solution 50ml TP SCH (07:59)
[2019-01-29] MEDS: proCHLORperazine 10 MG/2 ml inj IV PRN (08:10)
--- NOTE | 2019-01-29 09:59 | NUR ---
Chest tube removed by "Skyler", interventional radiology. Patient tolerated procedure well. Vaseline dressing left in place.
--- NOTE | 2019-01-29 11:41 | NUR ---
Reassessment: Pt continues tolerating TF at goal; Glucerna 1.2 subbed for Vital during shortage; currently restocked and to return to Vital High Protein today. Pt PO fluctuates 25%-75% meals depending on how big her appetite is; will take time to adjust to PO diet following pt preferences per RD recs as shown below. LBM 01/28. Will continue to monitor. Follow up: met with patient today to discuss food preferences for her several small meals. Dietary sending breakfast, 10:00 meal, lunch, 2:00 meal, and dinner. Each meal is small and pt trying to focus on protein. Made some changes to previous meal schedule that was made last Sunday. Patient wanting cheerios, milk, hard boiled egg with breakfast, Armenian yogurt for 2:00 meal, tuna with crackers for lunch, fruit for 2:00 meal, and chicken breast with mashed potatoes with dinner. Recommendations: 1) Continue tube feedings with Vital high protein per J-tube goal rate is 70 ml/hr to meet needs. This will provide total volume 1680 ml, 1680 cals, 147 gm protein, and 1411 ml water. 2) No water flush per MD, sodium is 131 3) Prealbumin q Sunday and 4) daily weights 5) continue mechanical soft diet with ground meats per [employer] 6) honor preferences, send small frequent meals Addendum: 01/29/19 at [address] Amended: Links added.
--- NOTE | 2019-01-29 13:48 | NUR ---
Patient in room ICU 2043. I have received report from ROBINA Quick and had the opportunity to ask questions and assume patient care.
--- NOTE | 2019-01-29 16:32 | NUR ---
Problems reprioritized. Patient report given, questions answered & plan of care reviewed with Art, RN.
[2019-01-29] MEDS: tamsulosin 0.4mg capsule PO SCH (20:15)
[2019-01-29] MEDS: diphenhydrAMINE 50 mg/ml inj IV PRN (21:30)
[2019-01-30] VITALS (24 sets, daily range): BP systolic 92–130; BP diastolic 46–85
[2019-01-30] MEDS: ceFAZolin 1GM/D5W- ADD-VANTAGE 50 ML IV SCH ×4 (00:03→23:58)
[2019-01-30 03:32] LABS: BASOPHILS % (AUTO) 0.3 % (0-1); EOSINOPHILS % (AUTO) 0.2 % (0-6); HEMATOCRIT 33.3 % (35.0-45.0); LYMPHOCYTES # (AUTO) 1.2 X10'3 (1.1-4.8); LYMPHOCYTES % (AUTO) 9.9 % (21-51); MEAN CORPUSCULAR HEMOGLOBIN 31.8 PG (27.0-31.0); MEAN CORPUSCULAR VOLUME 96.4 FL (78-98); MEAN PLATELET VOLUME 7.8 FL (7.4-10.4); MONOCYTES # (AUTO) 1.5 X10'3 (0-0.9); MONOCYTES % (AUTO) 12.3 % (2-12); NEUTROPHILS # (AUTO) 9.5 X10'3 (1.8-7.7); NEUTROPHILS % (AUTO) 77.3 % (42-75); PLATELET COUNT 646 X10'3 (140-440); RED BLOOD COUNT 3.46 X10'6 (4.20-5.60); RED CELL DISTRIBUTION WIDTH 19.4 % (11.5-14.5); WHITE BLOOD COUNT 12.3 X10'3 (4.5-11.0)
[2019-01-30 03:49] LABS: ALANINE AMINOTRANSFERASE 57 U/L (12-78); ALBUMIN 2.5 G/DL (3.4-5.0); ALBUMIN/GLOBULIN RATIO 0.6 (1.1-1.5); ALKALINE PHOSPHATASE 120 IU/L (46-116); ANION GAP 7 (8-16); ASPARTATE AMINO TRANSFERASE 24 U/L (10-37); BILIRUBIN,TOTAL 0.1 MG/DL (0.1-1.0); BLOOD UREA NITROGEN 15 MG/DL (7-18); BUN/CREATININE RATIO 28.8 (6.6-38.0); CALCIUM 9.4 MG/DL (8.5-10.1); CHLORIDE 100 MMOL/L (99-107); CREATININE 0.52 MG/DL (0.40-0.90); GLUCOSE 94 MG/DL (70-104); POTASSIUM 4.2 MMOL/L (3.5-5.1); PREALBUMIN 20.9 MG/DL (19-36); SODIUM 139 MMOL/L (135-145); TOTAL CARBON DIOXIDE 31.6 MMOL/L (24-32); TOTAL PROTEIN 6.7 G/DL (6.4-8.2); TRIGLYCERIDES 95 MG/DL (20-135); eGFR > 90 ML/MIN
[2019-01-30 04:15] LABS: ANISOCYTOSIS 2+; MICROCYTOSIS 1+; PLATELET ESTIMATE INCREASED; SCHISTOCYTES FEW
[2019-01-30] MEDS: HYDROcodone/acetaminophen 10/325mg tab PO PRN ×4 (04:53→20:15)
[2019-01-30] MEDS: LORazepam 2 mg/ml vial IV PRN (04:54)
--- NOTE | 2019-01-30 06:36 | NUR ---
Patient in room ICU 2043. I have received report from Benito Macias and had the opportunity to ask questions and assume patient care. Patient in room lying in bed with eyes closed, vital signs table, on 2l NC equal unlabored breaths, will continue to monitor
[2019-01-30] MEDS: ondansetron/PF 4mg/2ml inj IV PRN ×2 (07:55→15:13)
[2019-01-30] MEDS: famotidine/PF 10 mg/ml inj IV SCH (07:55)
[2019-01-30] MEDS: CLONAZEPAM 0.25 MG oral disentigrating tablet (ODT) PO SCH ×3 (07:55→20:14)
[2019-01-30] MEDS: venlafaxine XR 75mg capsule (Q24H) PO SCH (07:55)
[2019-01-30] MEDS: enoxaparin 100mg/ml syringe SUBCUT SCH ×2 (07:56→20:16)
[2019-01-30] MEDS: lactobacillus rhamnosus 10,000 MMU CELLS/CAPSULE PO SCH ×2 (07:56→20:15)
[2019-01-30] MEDS: LIDOcaine 4% (40 mg/ml) topical solution 50ml TP SCH (08:00)
--- NOTE | 2019-01-30 10:20 | NUR ---
Patient ambulated with PT two man stand by assist with FWW, patient walked about 20ft then rested in chair due to feeling tired and hr in the 130's, hr resolved once rested for a few minutes, then walked another 15ft with a rest period. Patient walked a total of 70ft, tolerated moderately well, per pt today was an improvement in ambulation. This is my first time with the patient so i have not seen her previous ambulation with PT.
--- NOTE | 2019-01-30 11:48 | NUR ---
Called Dr. Ashby [phone], in regards to her wound vac and isolation status. per " While she is here at [facility] she will stay in isolation and remain a 1:1 patient" also stated that the wound vac can be removed as he does not see a need for it at this time.
[2019-01-30] MEDS: famotidine 20mg tablet PO SCH (20:15)
[2019-01-30] MEDS: tamsulosin 0.4mg capsule PO SCH (20:15)
[2019-01-30] MEDS: proCHLORperazine 10 MG/2 ml inj IV PRN (20:23)
[2019-01-30] MEDS: LORazepam 1 MG tablet PO PRN (20:55)
[2019-01-30] MEDS: diphenhydrAMINE 50 mg/ml inj IV PRN (20:55)
[2019-01-31] VITALS (24 sets, daily range): BP systolic 91–146; BP diastolic 41–94
[2019-01-31 03:25] LABS: BASOPHILS # (AUTO) 0.1 X10'3 (0-0.2); HEMOGLOBIN 11.1 g/dl (12.0-16.0); LYMPHOCYTES # (AUTO) 1.3 X10'3 (1.1-4.8); MEAN CORPUSCULAR HEMOGLOBIN 31.4 PG (27.0-31.0); RED CELL DISTRIBUTION WIDTH 19.7 % (11.5-14.5)
[2019-01-31] MEDS: ondansetron/PF 4mg/2ml inj IV PRN ×2 (03:26→15:38)
[2019-01-31] MEDS: LORazepam 1 MG tablet PO PRN ×4 (03:26→21:34)
[2019-01-31] MEDS: HYDROcodone/acetaminophen 10/325mg tab PO PRN ×5 (03:26→20:44)
[2019-01-31 03:27] LABS: BASOPHILS % (AUTO) 0.8 % (0-1); EOSINOPHILS % (AUTO) 0.2 % (0-6); HEMATOCRIT 33.9 % (35.0-45.0); LYMPHOCYTES % (AUTO) 11.3 % (21-51); MEAN CORPUSCULAR HGB CONC 32.6 g/dL (33.0-36.5); MEAN CORPUSCULAR VOLUME 96.3 FL (78-98); MEAN PLATELET VOLUME 8.1 FL (7.4-10.4); MONOCYTES # (AUTO) 1.5 X10'3 (0-0.9); MONOCYTES % (AUTO) 13.2 % (2-12); NEUTROPHILS # (AUTO) 8.4 X10'3 (1.8-7.7); NEUTROPHILS % (AUTO) 74.5 % (42-75); PLATELET COUNT 619 X10'3 (140-440); RED BLOOD COUNT 3.52 X10'6 (4.20-5.60); WHITE BLOOD COUNT 11.3 X10'3 (4.5-11.0)
[2019-01-31 03:40] LABS: ALANINE AMINOTRANSFERASE 47 U/L (12-78); ALBUMIN 2.5 G/DL (3.4-5.0); ALBUMIN/GLOBULIN RATIO 0.6 (1.1-1.5); ALKALINE PHOSPHATASE 103 IU/L (46-116); ANION GAP 6 (8-16); ASPARTATE AMINO TRANSFERASE 19 U/L (10-37); BILIRUBIN,TOTAL 0.1 MG/DL (0.1-1.0); BLOOD UREA NITROGEN 15 MG/DL (7-18); BUN/CREATININE RATIO 32.6 (6.6-38.0); CALCIUM 9.3 MG/DL (8.5-10.1); CHLORIDE 101 MMOL/L (99-107); CREATININE 0.46 MG/DL (0.40-0.90); GLUCOSE 98 MG/DL (70-104); MAGNESIUM 1.5 MG/DL (1.5-2.4); PHOSPHORUS 4.7 MG/DL (2.3-4.5); SODIUM 138 MMOL/L (135-145); TOTAL CARBON DIOXIDE 31.4 MMOL/L (24-32); TOTAL PROTEIN 6.6 G/DL (6.4-8.2); eGFR > 90 ML/MIN
[2019-01-31 03:53] LABS: ANISOCYTOSIS 2+; PLATELET ESTIMATE INCREASED
--- NOTE | 2019-01-31 06:32 | NUR ---
Patient in room ICU 2043. I have received report from ROBINA Alvarado and had the opportunity to ask questions and assume patient care. Patient is currently sleeping in bed, VSS, bed locked and low, call light in reach, no acute distress. Will continue to monitor. Addendum: 01/31/19 at 1049 by Yeimi Spain RN ROBINA Oliver
[2019-01-31] MEDS: venlafaxine XR 75mg capsule (Q24H) PO SCH (07:34)
[2019-01-31] MEDS: CLONAZEPAM 0.25 MG oral disentigrating tablet (ODT) PO SCH ×3 (07:34→20:44)
[2019-01-31] MEDS: enoxaparin 100mg/ml syringe SUBCUT SCH ×2 (07:34→20:43)
[2019-01-31] MEDS: ceFAZolin 1GM/D5W- ADD-VANTAGE 50 ML IV SCH ×2 (07:35→15:38)
[2019-01-31] MEDS: lactobacillus rhamnosus 10,000 MMU CELLS/CAPSULE PO SCH ×2 (07:35→20:43)
[2019-01-31] MEDS: famotidine 20mg tablet PO SCH ×2 (07:35→20:43)
[2019-01-31] MEDS: LIDOcaine 4% (40 mg/ml) topical solution 50ml TP SCH (08:00)
--- NOTE | 2019-01-31 12:28 | NUR ---
Dr. Ashby at bedside, patient asking questions regarding her CRE status. Patient provided with education on infection transmission. Patient concerned about being discharged home because of the flanagan, she wanted rehab for the bladder training. Dr. Ashby said he would order bladder training and to start now, flanagan catheter clamped at 1220PM.
--- NOTE | 2019-01-31 17:17 | NUR ---
drsg changed on trach site
--- NOTE | 2019-01-31 18:25 | NUR ---
Problems reprioritized. Patient report given, questions answered & plan of care reviewed with ROBINA Arriola. Patient currently resting in bed, bed locked and low, call light in reach, talking on phone, no acute distress, stable at shift change.
--- NOTE | 2019-01-31 18:30 | NUR ---
Patient in room ICU 2043. I have received report from Yeimi QUARLES and had the opportunity to ask questions and assume patient care.
[2019-01-31] MEDS: tamsulosin 0.4mg capsule PO SCH (20:44)
[2019-01-31] MEDS: diphenhydrAMINE 50 mg/ml inj IV PRN (21:34)
[2019-02-01] VITALS (23 sets, daily range): BP systolic 107–137; BP diastolic 58–101
[2019-02-01] MEDS: ceFAZolin 1GM/D5W- ADD-VANTAGE 50 ML IV SCH ×4 (01:10→23:11)
[2019-02-01] MEDS: HYDROcodone/acetaminophen 10/325mg tab PO PRN ×5 (02:08→20:13)
[2019-02-01] MEDS: ondansetron/PF 4mg/2ml inj IV PRN ×2 (02:08→12:26)
[2019-02-01] MEDS: LORazepam 1 MG tablet PO PRN ×3 (05:05→21:46)
--- NOTE | 2019-02-01 06:26 | NUR ---
Problems reprioritized. Patient report given, questions answered & plan of care reviewed with Mony QUARLES.
[2019-02-01] MEDS: CLONAZEPAM 0.25 MG oral disentigrating tablet (ODT) PO SCH ×3 (07:53→20:12)
[2019-02-01] MEDS: famotidine 20mg tablet PO SCH ×2 (07:53→20:12)
[2019-02-01] MEDS: lactobacillus rhamnosus 10,000 MMU CELLS/CAPSULE PO SCH ×2 (07:53→20:12)
[2019-02-01] MEDS: venlafaxine XR 75mg capsule (Q24H) PO SCH (07:54)
[2019-02-01] MEDS: enoxaparin 100mg/ml syringe SUBCUT SCH ×2 (07:55→20:13)
[2019-02-01] MEDS: LIDOcaine 4% (40 mg/ml) topical solution 50ml TP SCH (08:00)
[2019-02-01] MEDS: proCHLORperazine 10 MG/2 ml inj IV PRN (08:01)
--- NOTE | 2019-02-01 09:44 | NUR ---
DR. TRUDI SOSA SEE PATIENT AT THIS TIME ; ORDERS TO FOLLOW.PATIENT HAD BEEN MEDICATED THIS AM FOR C/O PAIN AT LT LOWER ABDOMINAL QUADRANT. DESCRIBED PAIN "CONSTANT AND DULL, AND RATED PAIN A 7 ON SCALE OF 1-10. NOW RATES PAIN 3 ON PAIN SCALE OF 1-10." MEDICATED WITH COMPAZINE FOR C/O NAUSEA. Addendum: 02/01/19 at 0952 by Ashlyn Avalos RN Amended: Links added.
--- NOTE | 2019-02-01 11:27 | NUR ---
Reassessment: Pt continues tolerating TF at goal rate, now receiving recommended formula of Vital High Protein. Pt continues receiving snacks between meals with good PO intake 50% and 100% receiving food preferences. Per MD notes intraabdominal sepsis resolving well, abdominal drains removed, and pt continues with wound VAC to abdomen. LBM 01/31. Will continue to follow. Follow up: met with patient today to discuss food preferences for her several small meals. Dietary sending breakfast, 10:00 meal, lunch, 2:00 meal, and dinner. Each meal is small and pt trying to focus on protein. Made some changes to previous meal schedule that was made last Sunday. Patient wanting cheerios, milk, hard boiled egg with breakfast, Bulgarian yogurt for 2:00 meal, tuna with crackers for lunch, fruit for 2:00 meal, and chicken breast with mashed potatoes with dinner. Recommendations: 1) Continue tube feedings with Vital high protein per J-tube goal rate is 70 ml/hr to meet needs. This will provide total volume 1680 ml, 1680 cals, 147 gm protein, and 1411 ml water. 2) No water flush per MD, sodium is 131 3) Prealbumin q Sunday and 4) daily weights 5) continue mechanical soft diet with ground meats per [employer] 6) honor preferences, send small frequent meals Addendum: 02/01/19 at [address] Amended: Links added.
--- NOTE | 2019-02-01 18:20 | NUR ---
Patient in room ICU 2043. I have received report from Ashlyn QUARLES, and had the opportunity to ask questions and assume patient care.
[2019-02-01] MEDS: tamsulosin 0.4mg capsule PO SCH (20:12)
[2019-02-01] MEDS: diphenhydrAMINE 50 mg/ml inj IV PRN (23:11)
[2019-02-02] VITALS (24 sets, daily range): BP systolic 104–145; BP diastolic 56–92
[2019-02-02] MEDS: HYDROcodone/acetaminophen 10/325mg tab PO PRN ×4 (01:05→16:08)
--- NOTE | 2019-02-02 03:28 | NUR ---
Patient in bed resting at this time without any sign of distress. PRN Ativan was administered for anxiety and verbalized relief upon reassessment. Patient also received [place] for pain of 8/10. Upon reassessment, verbalized pain was a 2 upon reassessment. Vital signs are stable as patient continues to be in sinus. PICC line intact, patent and in place. PICC dressing was changed and tolerated well. F/C in place and patent and draining clear linda urine. F/C clamped for 2-3 hour interval and patient sometimes was able to verbalize bladder discomfort would ask to unclamped the catheter. Turned and reposition patient Q2hrs and as needed. Care needs will continue to be attended to and safety measures in place
--- NOTE | 2019-02-02 06:32 | NUR ---
Problems reprioritized. Patient report given, questions answered & plan of care reviewed with Zafar QUARLES.
--- NOTE | 2019-02-02 06:32 | NUR ---
Patient in room ICU 2043. I have received report from ROBINA Mcintosh and had the opportunity to ask questions and assume patient care.
[2019-02-02] MEDS: LORazepam 1 MG tablet PO PRN ×3 (07:04→20:34)
[2019-02-02] MEDS: proCHLORperazine 10 MG/2 ml inj IV PRN ×2 (07:14→17:23)
[2019-02-02] MEDS: LIDOcaine 4% (40 mg/ml) topical solution 50ml TP SCH (07:52)
[2019-02-02] MEDS: enoxaparin 100mg/ml syringe SUBCUT SCH ×2 (08:16→20:35)
[2019-02-02] MEDS: lactobacillus rhamnosus 10,000 MMU CELLS/CAPSULE PO SCH ×2 (08:17→20:34)
[2019-02-02] MEDS: CLONAZEPAM 0.25 MG oral disentigrating tablet (ODT) PO SCH ×3 (08:17→21:04)
[2019-02-02] MEDS: ceFAZolin 1GM/D5W- ADD-VANTAGE 50 ML IV SCH ×2 (08:18→15:12)
[2019-02-02] MEDS: venlafaxine XR 75mg capsule (Q24H) PO SCH (08:18)
[2019-02-02] MEDS: famotidine 20mg tablet PO SCH ×2 (08:18→20:34)
[2019-02-02] MEDS: ondansetron/PF 4mg/2ml inj IV PRN (15:12)
--- NOTE | 2019-02-02 18:15 | NUR ---
Problems reprioritized. Patient report given, questions answered & plan of care reviewed with ROBINA Shaffer.
--- NOTE | 2019-02-02 18:30 | NUR ---
Patient in room ICU 2043. I have received report from Fernando QUARLES and had the opportunity to ask questions and assume patient care.
[2019-02-02] MEDS: tamsulosin 0.4mg capsule PO SCH (20:34)
[2019-02-02] MEDS: diphenhydrAMINE 50 mg/ml inj IV PRN (21:04)
[2019-02-03] VITALS (25 sets, daily range): BP systolic 95–146; BP diastolic 47–95
[2019-02-03] MEDS: ceFAZolin 1GM/D5W- ADD-VANTAGE 50 ML IV SCH ×4 (00:26→23:32)
[2019-02-03] MEDS: LORazepam 1 MG tablet PO PRN ×4 (02:41→21:09)
[2019-02-03] MEDS: HYDROcodone/acetaminophen 10/325mg tab PO PRN ×5 (02:41→22:38)
[2019-02-03] MEDS: proCHLORperazine 10 MG/2 ml inj IV PRN ×2 (03:28→22:49)
[2019-02-03] MEDS ORDERED: tPA-cathflo 2 MG/2 ml IV flush IVF ONE ×3 (03:40)
--- NOTE | 2019-02-03 04:30 | NUR ---
Cath Wale administered to all three ports on PICC line due to PICC line ports not drawing and difficulty with ports flushing. All Three ports now drawing and flushing without difficulty.
[2019-02-03 05:49] LABS: PREALBUMIN 18.3 MG/DL (19-36)
--- NOTE | 2019-02-03 06:25 | NUR ---
Problems reprioritized. Patient report given, questions answered & plan of care reviewed with Kolby QUARLES.
--- NOTE | 2019-02-03 06:40 | NUR ---
Patient in room ICU 2043. I have received report from Deena QUARLES and had the opportunity to ask questions and assume patient care.
[2019-02-03] MEDS: venlafaxine XR 75mg capsule (Q24H) PO SCH (07:22)
[2019-02-03] MEDS: enoxaparin 100mg/ml syringe SUBCUT SCH ×2 (07:22→20:05)
[2019-02-03] MEDS: famotidine 20mg tablet PO SCH ×2 (07:22→20:03)
[2019-02-03] MEDS: CLONAZEPAM 0.25 MG oral disentigrating tablet (ODT) PO SCH ×3 (07:22→20:05)
[2019-02-03] MEDS: lactobacillus rhamnosus 10,000 MMU CELLS/CAPSULE PO SCH ×2 (07:23→20:03)
[2019-02-03] MEDS: LIDOcaine 4% (40 mg/ml) topical solution 50ml TP SCH (08:00)
[2019-02-03 12:18] LABS: BASOPHILS # (AUTO) 0.1 X10'3 (0-0.2); BASOPHILS % (AUTO) 0.6 % (0-1); EOSINOPHILS % (AUTO) 0.1 % (0-6); HEMATOCRIT 35.4 % (35.0-45.0); HEMOGLOBIN 11.6 g/dl (12.0-16.0); LYMPHOCYTES # (AUTO) 1.1 X10'3 (1.1-4.8); LYMPHOCYTES % (AUTO) 8.4 % (21-51); MEAN CORPUSCULAR HEMOGLOBIN 31.5 PG (27.0-31.0); MEAN CORPUSCULAR HGB CONC 32.6 g/dL (33.0-36.5); MEAN CORPUSCULAR VOLUME 96.6 FL (78-98); MEAN PLATELET VOLUME 9.3 FL (7.4-10.4); MONOCYTES % (AUTO) 7.8 % (2-12); NEUTROPHILS # (AUTO) 11.1 X10'3 (1.8-7.7); NEUTROPHILS % (AUTO) 83.1 % (42-75); PLATELET COUNT 640 X10'3 (140-440); RED BLOOD COUNT 3.67 X10'6 (4.20-5.60); RED CELL DISTRIBUTION WIDTH 18.8 % (11.5-14.5); WHITE BLOOD COUNT 13.4 X10'3 (4.5-11.0)
[2019-02-03 12:41] LABS: ALANINE AMINOTRANSFERASE 34 U/L (12-78); ALBUMIN 2.6 G/DL (3.4-5.0); ALBUMIN/GLOBULIN RATIO 0.6 (1.1-1.5); ALKALINE PHOSPHATASE 101 IU/L (46-116); ANION GAP 9 (8-16); ASPARTATE AMINO TRANSFERASE 20 U/L (10-37); BILIRUBIN,TOTAL 0.2 MG/DL (0.1-1.0); BLOOD UREA NITROGEN 16 MG/DL (7-18); BUN/CREATININE RATIO 32.7 (6.6-38.0); CALCIUM 9.5 MG/DL (8.5-10.1); CHLORIDE 97 MMOL/L (99-107); CREATININE 0.49 MG/DL (0.40-0.90); GLUCOSE 151 MG/DL (70-104); POTASSIUM 4.3 MMOL/L (3.5-5.1); SODIUM 132 MMOL/L (135-145); TOTAL CARBON DIOXIDE 25.7 MMOL/L (24-32); TOTAL PROTEIN 7.1 G/DL (6.4-8.2); eGFR > 90 ML/MIN
[2019-02-03 12:45] LABS: ANISOCYTOSIS 2+; PLATELET ESTIMATE INCREASED
[2019-02-03 12:48] LABS: LARGE PLATELETS MODERATE
[2019-02-03 12:49] LABS: BURR CELLS FEW; SCHISTOCYTES FEW
--- NOTE | 2019-02-03 17:45 | NUR ---
Wound care complete. Wound was clean and not painful to touch, Lidocaine was not used.
--- NOTE | 2019-02-03 18:17 | NUR ---
Problems reprioritized. Patient report given, questions answered & plan of care reviewed with Chela QUARLES.
--- NOTE | 2019-02-03 18:17 | NUR ---
Patient in room ICU 2043. I have received report from Kolby QUARLES and had the opportunity to ask questions and assume patient care. Pt received awake alert & oriented, watching TV at this time. No distress.
[2019-02-03] MEDS: lactose-reduced food (Ensure Enlive) - 237ml bottle PO SCH ×2 (19:00→20:10)
--- NOTE | 2019-02-03 20:00 | NUR ---
Up to BSC tolerated activity well. BM x1 moderate amount of soft brown stool.
[2019-02-03] MEDS: tamsulosin 0.4mg capsule PO SCH (20:03)
[2019-02-03] MEDS: diphenhydrAMINE 50 mg/ml inj IV PRN (21:10)
--- NOTE | 2019-02-03 23:26 | NUR ---
Pt placed on 2 liters oxygen for desaturation 87-88% when sleeping. Pt drowsy post Amber & compazine. Encouraged to deep breathe. Saturations up to 93%.
[2019-02-04] VITALS (21 sets, daily range): BP systolic 92–147; BP diastolic 42–89
[2019-02-04 01:31] LABS: BASOPHILS # (AUTO) 0.1 X10'3 (0-0.2); EOSINOPHILS % (AUTO) 0.1 % (0-6); LYMPHOCYTES # (AUTO) 0.9 X10'3 (1.1-4.8)
[2019-02-04 01:33] LABS: BASOPHILS % (AUTO) 0.5 % (0-1); HEMATOCRIT 33.2 % (35.0-45.0); LYMPHOCYTES % (AUTO) 4.4 % (21-51); MEAN CORPUSCULAR HEMOGLOBIN 31.7 PG (27.0-31.0); MEAN CORPUSCULAR HGB CONC 33.2 g/dL (33.0-36.5); MEAN CORPUSCULAR VOLUME 95.5 FL (78-98); MEAN PLATELET VOLUME 8.2 FL (7.4-10.4); MONOCYTES # (AUTO) 2.3 X10'3 (0-0.9); MONOCYTES % (AUTO) 11.9 % (2-12); NEUTROPHILS # (AUTO) 16.1 X10'3 (1.8-7.7); NEUTROPHILS % (AUTO) 83.1 % (42-75); PLATELET COUNT 612 X10'3 (140-440); RED BLOOD COUNT 3.48 X10'6 (4.20-5.60); RED CELL DISTRIBUTION WIDTH 18.5 % (11.5-14.5); WHITE BLOOD COUNT 19.4 X10'3 (4.5-11.0)
[2019-02-04 01:40] LABS: ALANINE AMINOTRANSFERASE 33 U/L (12-78); ALBUMIN 2.5 G/DL (3.4-5.0); ALBUMIN/GLOBULIN RATIO 0.6 (1.1-1.5); ALKALINE PHOSPHATASE 103 IU/L (46-116); ANION GAP 7 (8-16); ASPARTATE AMINO TRANSFERASE 21 U/L (10-37); BILIRUBIN,TOTAL 0.1 MG/DL (0.1-1.0); BLOOD UREA NITROGEN 18 MG/DL (7-18); BUN/CREATININE RATIO 41.9 (6.6-38.0); CALCIUM 9.2 MG/DL (8.5-10.1); CHLORIDE 97 MMOL/L (99-107); CREATININE 0.43 MG/DL (0.40-0.90); GLUCOSE 102 MG/DL (70-104); POTASSIUM 4.1 MMOL/L (3.5-5.1); SODIUM 133 MMOL/L (135-145); TOTAL CARBON DIOXIDE 29.5 MMOL/L (24-32); TOTAL PROTEIN 6.8 G/DL (6.4-8.2); eGFR > 90 ML/MIN
--- NOTE | 2019-02-04 04:30 | NUR ---
Up to BSC. Tolerated activity well. Moved bowels at this time. Small amount of soft brown stool.
[2019-02-04] MEDS: ondansetron/PF 4mg/2ml inj IV PRN (04:35)
[2019-02-04] MEDS: LORazepam 1 MG tablet PO PRN ×3 (04:35→20:02)
--- NOTE | 2019-02-04 05:05 | NUR ---
Restful night, slept for long intervals/ Up to BSC twice, BMx2 tolerating activity well. Bladder training remains in progress. Patterson tubing unclamped Q2H. On oxygen @2L NC while asleep for desaturation 87-88%.Saturations maintained at 94-95%. Remains in SR/ST HR 94-112. PICC line is patent with good blood return to all 3 ports. Tolerating Vital HP tube feedings without residuals, remains at goal rate 70ml/hr. No distress at this time.
[2019-02-04] MEDS: HYDROcodone/acetaminophen 10/325mg tab PO PRN ×4 (05:33→20:43)
--- NOTE | 2019-02-04 06:20 | NUR ---
Problems reprioritized. Patient report given, questions answered & plan of care reviewed with Marissa QUARLES.
[2019-02-04 06:39] LABS: ANISOCYTOSIS 2+; LARGE PLATELETS MODERATE; PLATELET ESTIMATE INCREASED
[2019-02-04] MEDS: proCHLORperazine 10 MG/2 ml inj IV PRN ×2 (06:48→20:43)
[2019-02-04] MEDS: CLONAZEPAM 0.25 MG oral disentigrating tablet (ODT) PO SCH ×3 (07:39→20:43)
[2019-02-04] MEDS: lactose-reduced food (Ensure Enlive) - 237ml bottle PO SCH ×3 (07:39→18:40)
[2019-02-04] MEDS: lactobacillus rhamnosus 10,000 MMU CELLS/CAPSULE PO SCH ×2 (07:39→20:02)
[2019-02-04] MEDS: enoxaparin 100mg/ml syringe SUBCUT SCH ×2 (07:39→20:02)
[2019-02-04] MEDS: venlafaxine XR 75mg capsule (Q24H) PO SCH (07:39)
[2019-02-04] MEDS: famotidine 20mg tablet PO SCH ×2 (07:39→20:02)
[2019-02-04] MEDS: ceFAZolin 1GM/D5W- ADD-VANTAGE 50 ML IV SCH ×2 (07:39→16:55)
[2019-02-04] MEDS: LIDOcaine 4% (40 mg/ml) topical solution 50ml TP SCH (08:00)
--- NOTE | 2019-02-04 13:46 | NUR ---
Reassessment: Per recent MD note J-tube expected to be removed prior to discharge. Per bedside RN patient is eating 50-100% of what is being brought (five small meals throughout the day). D/w RN yesterday regarding starting Ensure Enlive with meals, patient agreed and was able to drink 25%. To meet needs, patient would need to consume at least 1465-8092 cals per day. In view of pending J-tube removal, recommend that patient continue to receive ensure enlive with at least 3 meals for an additional 1050 calories if pt able to drink 100%. Pt LBM 01/31. Patient requesting that she only receive the Ensure with dinner for now, explained that she will need to increase intake to meet needs if unable to meet needs with other foods, d/w dietary. Will continue to follow. Recommendations: 1) Continue tube feedings with Vital high protein per J-tube goal rate is 70 ml/hr to meet needs. This will provide total volume 1680 ml, 1680 cals, 147 gm protein, and 1411 ml water. 2) No water flush per MD, sodium is 133 3) Prealbumin q Sunday and 4) daily weights 5) continue mechanical soft diet with ground meats per TICKER INSTALLER 6) honor preferences, send small frequent meals 7) Ensure Enlive with dinner Addendum: 02/04/19 at [address] Amended: Links added.
--- NOTE | 2019-02-04 14:45 | NUR ---
F/C dc'd at 1100 this am to complete bladder training and assess ability to urinate spontaneously; patient unable to urinate yet but has felt the urge twice and has been up to bedside commode. Also ambulated in halls. Bladder scanned at 1430 with only 217ml in bladder. Pt encouraged to call if she feels the urge to urinate, will reassess bladder scan when needed.
--- NOTE | 2019-02-04 17:56 | NUR ---
Pt unable to urinate with 475ml in her bladder per bladder scan. Pt very uncomfortable, up to bsc with no success. F/C replaced with 500ml clear yellow urine out. Pt eleazar well and stated relief.
[2019-02-04] MEDS: tamsulosin 0.4mg capsule PO SCH (20:43)
[2019-02-04] MEDS: diphenhydrAMINE 50 mg/ml inj IV PRN (20:43)
[2019-02-05] VITALS (24 sets, daily range): BP systolic 91–151; BP diastolic 48–91
[2019-02-05] MEDS: ceFAZolin 1GM/D5W- ADD-VANTAGE 50 ML IV SCH ×3 (00:19→17:48)
[2019-02-05 01:57] LABS: BASOPHILS # (AUTO) 0.1 X10'3 (0-0.2); BASOPHILS % (AUTO) 0.7 % (0-1); EOSINOPHILS % (AUTO) 0.4 % (0-6); HEMATOCRIT 32.1 % (35.0-45.0); HEMOGLOBIN 10.7 g/dl (12.0-16.0); LYMPHOCYTES # (AUTO) 1.3 X10'3 (1.1-4.8); LYMPHOCYTES % (AUTO) 10.4 % (21-51); MEAN CORPUSCULAR HGB CONC 33.4 g/dL (33.0-36.5); MEAN CORPUSCULAR VOLUME 95.8 FL (78-98); MEAN PLATELET VOLUME 8.8 FL (7.4-10.4); MONOCYTES # (AUTO) 1.6 X10'3 (0-0.9); MONOCYTES % (AUTO) 12.9 % (2-12); NEUTROPHILS # (AUTO) 9.5 X10'3 (1.8-7.7); NEUTROPHILS % (AUTO) 75.6 % (42-75); PLATELET COUNT 610 X10'3 (140-440); RED BLOOD COUNT 3.35 X10'6 (4.20-5.60); RED CELL DISTRIBUTION WIDTH 18.5 % (11.5-14.5); WHITE BLOOD COUNT 12.5 X10'3 (4.5-11.0)
[2019-02-05] MEDS: HYDROcodone/acetaminophen 10/325mg tab PO PRN ×5 (03:33→20:50)
[2019-02-05] MEDS: ondansetron/PF 4mg/2ml inj IV PRN ×2 (03:33→14:58)
[2019-02-05] MEDS: LORazepam 1 MG tablet PO PRN ×3 (03:33→20:50)
--- NOTE | 2019-02-05 06:31 | NUR ---
Problems reprioritized. Patient report given, questions answered & plan of care reviewed with Drop Forger RN.
[2019-02-05] MEDS: lactobacillus rhamnosus 10,000 MMU CELLS/CAPSULE PO SCH ×2 (07:37→20:49)
[2019-02-05] MEDS: enoxaparin 100mg/ml syringe SUBCUT SCH ×2 (07:37→20:49)
[2019-02-05] MEDS: venlafaxine XR 75mg capsule (Q24H) PO SCH (07:37)
[2019-02-05] MEDS: CLONAZEPAM 0.25 MG oral disentigrating tablet (ODT) PO SCH ×3 (07:37→20:49)
[2019-02-05] MEDS: famotidine 20mg tablet PO SCH ×2 (07:38→20:49)
[2019-02-05] MEDS: proCHLORperazine 10 MG/2 ml inj IV PRN ×2 (07:59→20:50)
[2019-02-05] MEDS: LIDOcaine 4% (40 mg/ml) topical solution 50ml TP SCH (08:00)
[2019-02-05] MEDS: lactose-reduced food (Ensure Enlive) - 237ml bottle PO SCH ×3 (08:00→18:30)
--- NOTE | 2019-02-05 11:25 | NUR ---
up walking with PT using front wheeled walker
--- NOTE | 2019-02-05 13:53 | NUR ---
patient up and walking with PT, requested to be put back to bed. VSS and patient is doing well today
[2019-02-05] MEDS: diphenhydrAMINE 50 mg/ml inj IV PRN (20:50)
[2019-02-05] MEDS: tamsulosin 0.4mg capsule PO SCH (20:50)
[2019-02-06] VITALS (24 sets, daily range): BP systolic 97–151; BP diastolic 50–92
[2019-02-06] MEDS: ceFAZolin 1GM/D5W- ADD-VANTAGE 50 ML IV SCH ×3 (00:26→16:04)
[2019-02-06 00:59] LABS: PREALBUMIN 19.1 MG/DL (19-36)
[2019-02-06] MEDS: ondansetron/PF 4mg/2ml inj IV PRN ×3 (01:40→18:45)
[2019-02-06] MEDS: HYDROcodone/acetaminophen 10/325mg tab PO PRN ×4 (01:40→20:51)
[2019-02-06] MEDS ORDERED: LORazepam 1 MG tablet PO ONE (02:00)
[2019-02-06] MEDS: LORazepam 1 MG tablet PO PRN ×4 (06:00→19:54)
--- NOTE | 2019-02-06 06:19 | NUR ---
Patient in room ICU 2043. I have received report from Emblem Fuser Tender RN and had the opportunity to ask questions and assume patient care.
[2019-02-06] MEDS: enoxaparin 100mg/ml syringe SUBCUT SCH ×2 (07:18→20:00)
[2019-02-06] MEDS: CLONAZEPAM 0.25 MG oral disentigrating tablet (ODT) PO SCH ×3 (07:18→20:50)
[2019-02-06] MEDS: famotidine 20mg tablet PO SCH ×2 (07:19→20:49)
[2019-02-06] MEDS: venlafaxine XR 75mg capsule (Q24H) PO SCH (07:19)
[2019-02-06] MEDS: lactobacillus rhamnosus 10,000 MMU CELLS/CAPSULE PO SCH ×2 (07:19→20:49)
[2019-02-06] MEDS: LIDOcaine 4% (40 mg/ml) topical solution 50ml TP SCH (08:00)
[2019-02-06] MEDS: lactose-reduced food (Ensure Enlive) - 237ml bottle PO SCH ×3 (08:00→18:34)
[2019-02-06 10:01] LABS: BASOPHILS # (AUTO) 0.1 X10'3 (0-0.2); BASOPHILS % (AUTO) 0.6 % (0-1); EOSINOPHILS % (AUTO) 0.3 % (0-6); HEMATOCRIT 34.5 % (35.0-45.0); HEMOGLOBIN 11.2 g/dl (12.0-16.0); LYMPHOCYTES % (AUTO) 7.4 % (21-51); MEAN CORPUSCULAR HEMOGLOBIN 31.5 PG (27.0-31.0); MEAN CORPUSCULAR HGB CONC 32.4 g/dL (33.0-36.5); MEAN CORPUSCULAR VOLUME 97.3 FL (78-98); MEAN PLATELET VOLUME 8.9 FL (7.4-10.4); MONOCYTES # (AUTO) 1.4 X10'3 (0-0.9); MONOCYTES % (AUTO) 11.2 % (2-12); NEUTROPHILS # (AUTO) 10.4 X10'3 (1.8-7.7); NEUTROPHILS % (AUTO) 80.5 % (42-75); PLATELET COUNT 642 X10'3 (140-440); RED BLOOD COUNT 3.54 X10'6 (4.20-5.60); RED CELL DISTRIBUTION WIDTH 18.2 % (11.5-14.5); WHITE BLOOD COUNT 12.9 X10'3 (4.5-11.0)
[2019-02-06 10:04] LABS: ALANINE AMINOTRANSFERASE 31 U/L (12-78); ALBUMIN 2.5 G/DL (3.4-5.0); ALBUMIN/GLOBULIN RATIO 0.6 (1.1-1.5); ALKALINE PHOSPHATASE 104 IU/L (46-116); ANION GAP 8 (8-16); ASPARTATE AMINO TRANSFERASE 18 U/L (10-37); BILIRUBIN,TOTAL 0.1 MG/DL (0.1-1.0); BLOOD UREA NITROGEN 19 MG/DL (7-18); BUN/CREATININE RATIO 42.2 (6.6-38.0); CALCIUM 9.3 MG/DL (8.5-10.1); CHLORIDE 101 MMOL/L (99-107); CREATININE 0.45 MG/DL (0.40-0.90); GLUCOSE 135 MG/DL (70-104); MAGNESIUM 1.5 MG/DL (1.5-2.4); POTASSIUM 4.1 MMOL/L (3.5-5.1); SODIUM 136 MMOL/L (135-145); TOTAL CARBON DIOXIDE 27.1 MMOL/L (24-32); TOTAL PROTEIN 6.8 G/DL (6.4-8.2); eGFR > 90 ML/MIN
[2019-02-06 10:47] LABS: ANISOCYTOSIS 2+; PLATELET ESTIMATE INCREASED
[2019-02-06 10:48] LABS: POLYCHROMASIA FEW
[2019-02-06 10:49] LABS: LARGE PLATELETS FEW
--- NOTE | 2019-02-06 11:24 | NUR ---
Reassessment: Per discussion at rounds, J-tube will be removed tonight and thus tube feedings will be stopped. Met with patient multiple times at bedside, reinforced education to eat small, frequent meals with emphasis on protein and reduce intake of foods that may cause dumping syndrome. Written education materials also given to Slate Worker. Provided coupons for patients for Ensure Enlive, recommend that she drinks 2-3 per day to help meet needs while she is still building appetite and ability to eat larger portions. Her appetite is great, feels happy with her current meal schedule and feel confident that she can eat that way after discharge. Provided patient with RD contact information. She is drinking 50-75% of ensure enlive, TID. She is eating about 75% of what is being brought (five small meals throughout the day), did eat 100% of first meal this morning. To meet needs, patient would need to consume at least 9939-9644 cals per day. In view of pending J-tube removal, recommend that patient continue to receive ensure enlive with at least 2-3 meals for an additional 700-1050 calories if pt able to drink 100%. Will continue to follow. Recommendations: 1) Continue tube feedings with Vital high protein per J-tube goal rate is 70 ml/hr to meet needs. This will provide total volume 1680 ml, 1680 cals, 147 gm protein, and 1411 ml water. This will be discontinued after removal of J-tube. 2) No water flush per MD 3) Prealbumin q Sunday and 4) daily weights 5) continue mechanical soft diet with ground meats per ENERGY SALES BROKER 6) honor preferences, send small frequent meals 7) Ensure Enlive TID Addendum: 02/06/19 at [address] Amended: Links added.
[2019-02-06] MEDS ORDERED: diatr meglu/diatrizoate 30ml oral sol.-(3 dose) bottle PO ONE (14:30)
--- NOTE | 2019-02-06 18:13 | NUR ---
Problems reprioritized. Patient report given, questions answered & plan of care reviewed with Cristina QUARLES.
--- NOTE | 2019-02-06 20:08 | NUR ---
Called Dr. Hernández regarding J-tube removal. Per Dr. Castillo's progress note (and bedside shift handoff from day RN), said that he would be removing it today. Although patient had not eaten much since breakfast, her tube feeds were still going at the goal rate which I anticipated should have been discontinued in preparation for J-tube removal. Dr. Hernández had me read him the report from the Abd xray enhanced with fluoro today, asked for the size and color of the tube, said to D/C tube feeds & make pt NPO at midnight, and he would be here tomorrow to remove the j-tube.
[2019-02-06] MEDS: diphenhydrAMINE 50 mg/ml inj IV PRN (20:50)
[2019-02-06] MEDS: proCHLORperazine 10 MG/2 ml inj IV PRN (20:50)
[2019-02-06] MEDS: tamsulosin 0.4mg capsule PO SCH (20:50)
[2019-02-07] VITALS (23 sets, daily range): BP systolic 88–142; BP diastolic 39–91
[2019-02-07 00:34] LABS: BASOPHILS # (AUTO) 0.1 X10'3 (0-0.2); HEMOGLOBIN 11.1 g/dl (12.0-16.0); NEUTROPHILS # (AUTO) 8.2 X10'3 (1.8-7.7); WHITE BLOOD COUNT 11.1 X10'3 (4.5-11.0)
[2019-02-07 00:36] LABS: BASOPHILS % (AUTO) 0.8 % (0-1); EOSINOPHILS # (AUTO) 0.1 X10'3 (0-0.9); EOSINOPHILS % (AUTO) 0.5 % (0-6); HEMATOCRIT 33.7 % (35.0-45.0); LYMPHOCYTES # (AUTO) 1.1 X10'3 (1.1-4.8); LYMPHOCYTES % (AUTO) 10.3 % (21-51); MEAN CORPUSCULAR HEMOGLOBIN 31.3 PG (27.0-31.0); MEAN CORPUSCULAR HGB CONC 32.8 g/dL (33.0-36.5); MEAN CORPUSCULAR VOLUME 95.4 FL (78-98); MEAN PLATELET VOLUME 8.8 FL (7.4-10.4); MONOCYTES # (AUTO) 1.7 X10'3 (0-0.9); NEUTROPHILS % (AUTO) 73.4 % (42-75); PLATELET COUNT 664 X10'3 (140-440); RED BLOOD COUNT 3.53 X10'6 (4.20-5.60); RED CELL DISTRIBUTION WIDTH 18.5 % (11.5-14.5)
[2019-02-07 00:42] LABS: ALBUMIN 2.5 G/DL (3.4-5.0); ANION GAP 6 (8-16); BLOOD UREA NITROGEN 19 MG/DL (7-18); BUN/CREATININE RATIO 44.2 (6.6-38.0); CALCIUM 9.7 MG/DL (8.5-10.1); CHLORIDE 99 MMOL/L (99-107); CREATININE 0.43 MG/DL (0.40-0.90); GLUCOSE 93 MG/DL (70-104); MAGNESIUM 1.7 MG/DL (1.5-2.4); PHOSPHORUS 5.1 MG/DL (2.3-4.5); POTASSIUM 4.3 MMOL/L (3.5-5.1); SODIUM 135 MMOL/L (135-145); TOTAL CARBON DIOXIDE 30.3 MMOL/L (24-32); eGFR > 90 ML/MIN
[2019-02-07] MEDS: proCHLORperazine 10 MG/2 ml inj IV PRN (05:10)
[2019-02-07] MEDS: HYDROcodone/acetaminophen 10/325mg tab PO PRN ×3 (05:10→20:57)
[2019-02-07] MEDS: LORazepam 1 MG tablet PO PRN ×3 (06:12→20:56)
--- NOTE | 2019-02-07 06:20 | NUR ---
Patient in room ICU 2043. I have received report from Cristina QAURLES and had the opportunity to ask questions and assume patient care.
--- NOTE | 2019-02-07 06:46 | NUR ---
Dr. Redd at the bedside, reviewed the chart and said that the feeding tube could be pulled at the bedside, he reviewed the chart findings with the patient and told her he could pull it at the bedside and she agreed. Feeding tube is pulled and patient stated it was painful and she recently received pain medication. VSS, will continue to assess and monitor the patient.
[2019-02-07] MEDS: CLONAZEPAM 0.25 MG oral disentigrating tablet (ODT) PO SCH ×3 (07:06→20:15)
[2019-02-07] MEDS: ondansetron/PF 4mg/2ml inj IV PRN (07:06)
[2019-02-07] MEDS: ceFAZolin 1GM/D5W- ADD-VANTAGE 50 ML IV SCH ×2 (07:06)
[2019-02-07] MEDS: lactobacillus rhamnosus 10,000 MMU CELLS/CAPSULE PO SCH ×2 (07:06→20:08)
[2019-02-07] MEDS: enoxaparin 100mg/ml syringe SUBCUT SCH ×2 (07:06→20:09)
[2019-02-07] MEDS: famotidine 20mg tablet PO SCH ×2 (07:06→20:09)
[2019-02-07] MEDS: venlafaxine XR 75mg capsule (Q24H) PO SCH (07:06)
[2019-02-07] MEDS: lactose-reduced food (Ensure Enlive) - 237ml bottle PO SCH ×3 (08:00→18:00)
[2019-02-07 09:04] LABS: BASOPHILS # (AUTO) 0.1 X10'3 (0-0.2); BASOPHILS % (AUTO) 0.5 % (0-1); EOSINOPHILS % (AUTO) 0.1 % (0-6); HEMATOCRIT 34.8 % (35.0-45.0); HEMOGLOBIN 11.5 g/dl (12.0-16.0); LYMPHOCYTES # (AUTO) 1.1 X10'3 (1.1-4.8); LYMPHOCYTES % (AUTO) 8.5 % (21-51); MEAN CORPUSCULAR HEMOGLOBIN 31.7 PG (27.0-31.0); MEAN CORPUSCULAR HGB CONC 33.1 g/dL (33.0-36.5); MEAN CORPUSCULAR VOLUME 95.9 FL (78-98); MEAN PLATELET VOLUME 8.8 FL (7.4-10.4); MONOCYTES # (AUTO) 1.4 X10'3 (0-0.9); MONOCYTES % (AUTO) 11.5 % (2-12); NEUTROPHILS # (AUTO) 9.9 X10'3 (1.8-7.7); NEUTROPHILS % (AUTO) 79.4 % (42-75); PLATELET COUNT 735 X10'3 (140-440); RED BLOOD COUNT 3.63 X10'6 (4.20-5.60); RED CELL DISTRIBUTION WIDTH 18.1 % (11.5-14.5); WHITE BLOOD COUNT 12.4 X10'3 (4.5-11.0)
[2019-02-07 09:25] LABS: ALANINE AMINOTRANSFERASE 54 U/L (12-78); ALBUMIN 2.7 G/DL (3.4-5.0); ALBUMIN/GLOBULIN RATIO 0.6 (1.1-1.5); ALKALINE PHOSPHATASE 109 IU/L (46-116); ANION GAP 5 (8-16); ASPARTATE AMINO TRANSFERASE 38 U/L (10-37); BILIRUBIN,TOTAL 0.1 MG/DL (0.1-1.0); BLOOD UREA NITROGEN 17 MG/DL (7-18); BUN/CREATININE RATIO 38.6 (6.6-38.0); CHLORIDE 99 MMOL/L (99-107); CREATININE 0.44 MG/DL (0.40-0.90); GLUCOSE 88 MG/DL (70-104); MAGNESIUM 1.6 MG/DL (1.5-2.4); POTASSIUM 4.2 MMOL/L (3.5-5.1); SODIUM 136 MMOL/L (135-145); TOTAL CARBON DIOXIDE 31.7 MMOL/L (24-32); eGFR > 90 ML/MIN
[2019-02-07] MEDS ORDERED: diphenhydrAMINE 25mg capsule PO PRN (11:55)
[2019-02-07] MEDS: cephalexin 500mg capsule PO SCH ×3 (14:29→20:08)
--- NOTE | 2019-02-07 18:30 | NUR ---
Patient in room ICU 2043. I have received report from Day Shift RN and had the opportunity to ask questions and assume patient care.
[2019-02-07] MEDS: tamsulosin 0.4mg capsule PO SCH (20:08)
[2019-02-07] MEDS: ondansetron 4mg rapidly disintigrating tab PO PRN (21:13)
[2019-02-08] VITALS (24 sets, daily range): BP systolic 90–146; BP diastolic 41–91
[2019-02-08] MEDS: HYDROcodone/acetaminophen 10/325mg tab PO PRN ×3 (01:32→17:21)
[2019-02-08] MEDS: LORazepam 1 MG tablet PO PRN ×3 (04:40→20:33)
[2019-02-08 05:31] LABS: ALBUMIN 2.6 G/DL (3.4-5.0); ANION GAP 7 (8-16); BLOOD UREA NITROGEN 13 MG/DL (7-18); CALCIUM 10.4 MG/DL (8.5-10.1); CHLORIDE 96 MMOL/L (99-107); CREATININE 0.52 MG/DL (0.40-0.90); GLUCOSE 86 MG/DL (70-104); MAGNESIUM 1.6 MG/DL (1.5-2.4); POTASSIUM 4.3 MMOL/L (3.5-5.1); SODIUM 133 MMOL/L (135-145); TOTAL CARBON DIOXIDE 29.8 MMOL/L (24-32); eGFR > 90 ML/MIN
--- NOTE | 2019-02-08 06:15 | NUR ---
Patient in room ICU 2043. I have received report from ROBINA Arriola and had the opportunity to ask questions and assume patient care.
[2019-02-08 06:20] LABS: BASOPHILS # (AUTO) 0.1 X10'3 (0-0.2); BASOPHILS % (AUTO) 0.6 % (0-1); EOSINOPHILS % (AUTO) 0.5 % (0-6); HEMOGLOBIN 11.8 g/dl (12.0-16.0); LYMPHOCYTES # (AUTO) 1.1 X10'3 (1.1-4.8); LYMPHOCYTES % (AUTO) 11.5 % (21-51); MEAN CORPUSCULAR HEMOGLOBIN 32.3 PG (27.0-31.0); MEAN CORPUSCULAR HGB CONC 33.7 g/dL (33.0-36.5); MEAN CORPUSCULAR VOLUME 95.9 FL (78-98); MEAN PLATELET VOLUME 9.2 FL (7.4-10.4); MONOCYTES # (AUTO) 1.4 X10'3 (0-0.9); MONOCYTES % (AUTO) 15.3 % (2-12); NEUTROPHILS # (AUTO) 6.8 X10'3 (1.8-7.7); NEUTROPHILS % (AUTO) 72.1 % (42-75); PLATELET COUNT 677 X10'3 (140-440); RED BLOOD COUNT 3.65 X10'6 (4.20-5.60); RED CELL DISTRIBUTION WIDTH 17.9 % (11.5-14.5); WHITE BLOOD COUNT 9.4 X10'3 (4.5-11.0)
[2019-02-08] MEDS: LIDOcaine 4% (40 mg/ml) topical solution 50ml TP SCH ×2 (07:45→07:46)
[2019-02-08] MEDS: lactose-reduced food (Ensure Enlive) - 237ml bottle PO SCH ×3 (08:00→17:57)
[2019-02-08] MEDS: CLONAZEPAM 0.25 MG oral disentigrating tablet (ODT) PO SCH ×3 (08:15→20:10)
[2019-02-08] MEDS: lactobacillus rhamnosus 10,000 MMU CELLS/CAPSULE PO SCH ×2 (08:15→20:11)
[2019-02-08] MEDS: cephalexin 500mg capsule PO SCH ×4 (08:15→20:10)
[2019-02-08] MEDS: venlafaxine XR 75mg capsule (Q24H) PO SCH (08:15)
[2019-02-08] MEDS: famotidine 20mg tablet PO SCH ×2 (08:15→20:11)
[2019-02-08] MEDS: enoxaparin 100mg/ml syringe SUBCUT SCH ×2 (08:16→20:10)
[2019-02-08] MEDS: ondansetron 4mg rapidly disintigrating tab PO PRN (14:40)
--- NOTE | 2019-02-08 18:30 | NUR ---
Patient in room ICU 2043. I have received report from Roc QUARLES and had the opportunity to ask questions and assume patient care.
[2019-02-08] MEDS: tamsulosin 0.4mg capsule PO SCH (20:10)
[2019-02-08] MEDS: diphenhydrAMINE 25mg capsule PO PRN (20:34)
[2019-02-08] MEDS: clonazePAM 1mg tablet PO SCH (21:00)
[2019-02-09] VITALS (23 sets, daily range): BP systolic 98–130; BP diastolic 54–87
[2019-02-09] MEDS: HYDROcodone/acetaminophen 10/325mg tab PO PRN ×5 (00:33→21:07)
[2019-02-09] MEDS: LORazepam 1 MG tablet PO PRN ×3 (02:26→21:07)
[2019-02-09 05:04] LABS: RED CELL DISTRIBUTION WIDTH 17.7 % (11.5-14.5)
[2019-02-09 05:06] LABS: BASOPHILS # (AUTO) 0.1 X10'3 (0-0.2); BASOPHILS % (AUTO) 0.6 % (0-1); EOSINOPHILS % (AUTO) 0.2 % (0-6); HEMATOCRIT 38.9 % (35.0-45.0); HEMOGLOBIN 12.6 g/dl (12.0-16.0); LYMPHOCYTES # (AUTO) 1.2 X10'3 (1.1-4.8); LYMPHOCYTES % (AUTO) 8.2 % (21-51); MEAN CORPUSCULAR HEMOGLOBIN 31.2 PG (27.0-31.0); MEAN CORPUSCULAR HGB CONC 32.3 g/dL (33.0-36.5); MEAN CORPUSCULAR VOLUME 96.6 FL (78-98); MEAN PLATELET VOLUME 8.7 FL (7.4-10.4); MONOCYTES # (AUTO) 1.6 X10'3 (0-0.9); MONOCYTES % (AUTO) 10.9 % (2-12); NEUTROPHILS # (AUTO) 11.8 X10'3 (1.8-7.7); NEUTROPHILS % (AUTO) 80.1 % (42-75); PLATELET COUNT 714 X10'3 (140-440); RED BLOOD COUNT 4.03 X10'6 (4.20-5.60); WHITE BLOOD COUNT 14.7 X10'3 (4.5-11.0)
[2019-02-09 05:22] LABS: ALBUMIN 2.8 G/DL (3.4-5.0); ANION GAP 8 (8-16); BLOOD UREA NITROGEN 13 MG/DL (7-18); BUN/CREATININE RATIO 23.6 (6.6-38.0); CHLORIDE 97 MMOL/L (99-107); CREATININE 0.55 MG/DL (0.40-0.90); GLUCOSE 85 MG/DL (70-104); MAGNESIUM 1.8 MG/DL (1.5-2.4); PHOSPHORUS 5.9 MG/DL (2.3-4.5); POTASSIUM 4.1 MMOL/L (3.5-5.1); SODIUM 134 MMOL/L (135-145); TOTAL CARBON DIOXIDE 29.1 MMOL/L (24-32); eGFR > 90 ML/MIN
--- NOTE | 2019-02-09 06:15 | NUR ---
Patient in room ICU 2043. I have received report from ROBINA AREVALO and had the opportunity to ask questions and assume patient care.
[2019-02-09] MEDS: LIDOcaine 4% (40 mg/ml) topical solution 50ml TP SCH (07:40)
[2019-02-09] MEDS: lactobacillus rhamnosus 10,000 MMU CELLS/CAPSULE PO SCH ×2 (07:48→20:11)
[2019-02-09] MEDS: venlafaxine XR 75mg capsule (Q24H) PO SCH (07:49)
[2019-02-09] MEDS: cephalexin 500mg capsule PO SCH ×4 (07:51→20:12)
[2019-02-09] MEDS: clonazePAM 1mg tablet PO SCH ×3 (07:51→20:12)
[2019-02-09] MEDS: famotidine 20mg tablet PO SCH ×2 (07:52→20:11)
[2019-02-09] MEDS: enoxaparin 100mg/ml syringe SUBCUT SCH ×2 (07:52→20:11)
[2019-02-09] MEDS: lactose-reduced food (Ensure Enlive) - 237ml bottle PO SCH ×4 (08:15→18:09)
--- NOTE | 2019-02-09 09:03 | NUR ---
PHYSICAL THERAPY IN FOR TREATMENT.
--- NOTE | 2019-02-09 11:40 | NUR ---
REQUEST FOR NORCO 10/325 PO AND ATIVAN 2 MG PO. ASKED HER IF SHE HAS BEEN TAKING THEM AT SAME TIME BEFORE, STATES "YES., MANY TIMES, HAS NOT CAUSED ANY PROBLEMS" ADM PER REQUEST.
--- NOTE | 2019-02-09 14:03 | NUR ---
Reassessment: Pt PO 100% regular meals receiving ensure enlive TIDWM meeting needs. LBM 02/08. PALB WNL. Pt has received multiple eds regarding diet guidelines and is pending home d/c tomorrow per MD note. Will continue to monitor. Recommendations: 1) Continue tube feedings with Vital high protein per J-tube goal rate is 70 ml/hr to meet needs. This will provide total volume 1680 ml, 1680 cals, 147 gm protein, and 1411 ml water. This will be discontinued after removal of J-tube. 2) No water flush per MD 3) Prealbumin q Sunday and 4) daily weights 5) continue mechanical soft diet with ground meats per ENVELOPE FOLDING MACHINE ADJUSTER 6) honor preferences, send small frequent meals 7) Ensure Enlive TID Addendum: 02/09/19 at [address] Amended: Links added.
--- NOTE | 2019-02-09 15:04 | NUR ---
ONE PERSON ASSIST TO BSC. SMALL SOFT BM. ASSIST BACK TO BED AFTER [facility]IN [facility],
--- NOTE | 2019-02-09 18:23 | NUR ---
Patient in room ICU 2043. I have received report from Isrrael QUARLES and had the opportunity to ask questions and assume patient care.
[2019-02-09] MEDS: tamsulosin 0.4mg capsule PO SCH (20:11)
[2019-02-09] MEDS: diphenhydrAMINE 25mg capsule PO PRN (21:08)
[2019-02-10] VITALS (11 sets, daily range): BP systolic 98–125; BP diastolic 51–81
[2019-02-10] MEDS: LORazepam 1 MG tablet PO PRN ×2 (03:03→10:15)
[2019-02-10] MEDS: HYDROcodone/acetaminophen 10/325mg tab PO PRN (03:03)
[2019-02-10 05:26] LABS: ALBUMIN 2.8 G/DL (3.4-5.0); ANION GAP 10 (8-16); BLOOD UREA NITROGEN 12 MG/DL (7-18); BUN/CREATININE RATIO 22.2 (6.6-38.0); CHLORIDE 99 MMOL/L (99-107); CREATININE 0.54 MG/DL (0.40-0.90); GLUCOSE 90 MG/DL (70-104); MAGNESIUM 1.7 MG/DL (1.5-2.4); PHOSPHORUS 5.9 MG/DL (2.3-4.5); POTASSIUM 3.8 MMOL/L (3.5-5.1); SODIUM 137 MMOL/L (135-145); TOTAL CARBON DIOXIDE 27.7 MMOL/L (24-32); eGFR > 90 ML/MIN
[2019-02-10 05:34] LABS: BASOPHILS # (AUTO) 0.1 X10'3 (0-0.2); EOSINOPHILS % (AUTO) 0.3 % (0-6); HEMATOCRIT 37.2 % (35.0-45.0); HEMOGLOBIN 12.3 g/dl (12.0-16.0); LYMPHOCYTES # (AUTO) 1.1 X10'3 (1.1-4.8); MEAN CORPUSCULAR HEMOGLOBIN 31.5 PG (27.0-31.0); MEAN PLATELET VOLUME 8.8 FL (7.4-10.4); NEUTROPHILS # (AUTO) 7.7 X10'3 (1.8-7.7)
[2019-02-10 05:37] LABS: BASOPHILS % (AUTO) 0.7 % (0-1); LYMPHOCYTES % (AUTO) 10.6 % (21-51); MEAN CORPUSCULAR VOLUME 95.6 FL (78-98); MONOCYTES # (AUTO) 1.3 X10'3 (0-0.9); MONOCYTES % (AUTO) 12.6 % (2-12); NEUTROPHILS % (AUTO) 75.8 % (42-75); PLATELET COUNT 767 X10'3 (140-440); RED BLOOD COUNT 3.89 X10'6 (4.20-5.60); RED CELL DISTRIBUTION WIDTH 17.8 % (11.5-14.5); WHITE BLOOD COUNT 10.2 X10'3 (4.5-11.0)
--- NOTE | 2019-02-10 06:16 | NUR ---
Problems reprioritized. Patient report given, questions answered & plan of care reviewed with Dejah QUARLES.
--- NOTE | 2019-02-10 06:20 | NUR ---
Patient in room ICU 2043. I have received report from Flako and had the opportunity to ask questions and assume patient care.
[2019-02-10] MEDS: famotidine 20mg tablet PO SCH (07:57)
[2019-02-10] MEDS: clonazePAM 1mg tablet PO SCH (07:57)
[2019-02-10] MEDS: venlafaxine XR 75mg capsule (Q24H) PO SCH (07:58)
[2019-02-10] MEDS: cephalexin 500mg capsule PO SCH (07:58)
[2019-02-10] MEDS: lactobacillus rhamnosus 10,000 MMU CELLS/CAPSULE PO SCH (07:58)
[2019-02-10] MEDS: enoxaparin 100mg/ml syringe SUBCUT SCH (08:01)
[2019-02-10] MEDS: lactose-reduced food (Ensure Enlive) - 237ml bottle PO SCH (08:01)
[2019-02-10] MEDS ORDERED: CEPH500C5 PO (09:06)
[2019-02-10] MEDS ORDERED: tamsulosin capsule PO (09:06)
--- NOTE | 2019-02-10 11:32 | NUR ---
Patient was cleared to discharge home. Wound care completed to abdomen. Prescription medications called into [facility]. Patient left in stable condition with family member.
[2019-02-10 12:19] LABS: PLATELET ESTIMATE INCREASED
[2019-02-10 12:20] LABS: ANISOCYTOSIS 1+; LARGE PLATELETS FEW
[2019-02-10 12:21] LABS: ACANTHOCYTES FEW; POIKILOCYTOSIS FEW
== END 2019-02-10 13:17 | disposition home health service (06) | DRG 870 ==
LOC: ICU 2S 22:18
PROVIDERS: ADMIT Internal Medicine Critical Care Medicine
PROC: 5A1955Z Respiratory Ventilation, Greater than 96 Consecutive Hours (ICD-10-PCS; principal; 2018-12-20)
PROC: 5A09357 Assistance with Respiratory Ventilation, Less than 24 Consecutive Hours, Continuous Positive Airway Pressure (ICD-10-PCS; 2018-12-31)
PROC: BW251ZZ Computerized Tomography (CT Scan) of Chest, Abdomen and Pelvis using Low Osmolar Contrast (ICD-10-PCS; 2019-01-08)
PROC: BW251ZZ Computerized Tomography (CT Scan) of Chest, Abdomen and Pelvis using Low Osmolar Contrast (ICD-10-PCS; 2019-01-14)
PROC: 02HV33Z Insertion of Infusion Device into Superior Vena Cava, Percutaneous Approach (ICD-10-PCS; 2019-01-16)
PROC: B548ZZA Ultrasonography of Superior Vena Cava, Guidance (ICD-10-PCS; 2019-01-16)
PROC: 0W9B30Z Drainage of Left Pleural Cavity with Drainage Device, Percutaneous Approach (ICD-10-PCS; 2019-01-16)
PROC: 3E04317 Introduction of Other Thrombolytic into Central Vein, Percutaneous Approach (ICD-10-PCS; 2019-01-20)
PROC: 0DPDXUZ Removal of Feeding Device from Lower Intestinal Tract, External Approach (ICD-10-PCS; 2019-02-07)
DX: A41.9 Sepsis, unspecified organism (principal); K22.3 Perforation of esophagus; J96.20 Acute and chronic respiratory failure, unspecified whether with hypoxia or hypercapnia; J86.9 Pyothorax without fistula; K91.89 Other postprocedural complications and disorders of digestive system; I82.4Z2 Acute embolism and thrombosis of unspecified deep veins of left distal lower extremity; I82.621 Acute embolism and thrombosis of deep veins of right upper extremity; E87.1 Hypo-osmolality and hyponatremia; D47.3 Essential (hemorrhagic) thrombocythemia; R33.9 Retention of urine, unspecified; B95.2 Enterococcus as the cause of diseases classified elsewhere; F41.9 Anxiety disorder, unspecified; L89.819 Pressure ulcer of head, unspecified stage; Z90.3 Acquired absence of stomach [part of]; Z90.81 Acquired absence of spleen; Z93.0 Tracheostomy status; Z93.4 Other artificial openings of gastrointestinal tract status; Z98.84 Bariatric surgery status; Z88.2 Allergy status to sulfonamides; Z88.8 Allergy status to other drugs, medicaments and biological substances; Z91.040 Latex allergy status; Z79.899 Other long term (current) drug therapy; Z90.49 Acquired absence of other specified parts of digestive tract
CPT/HCPCS: 32557; 32561; 36415; 36569; 36600; 71045; 71046; 71260; 74018; 74177; 76937; 80048; 80053; 80202; 81003; 82150; 82247; 82550; 82570; 82728; 82803; 82948; 83036; 83540; 83550; 83605; 83735; 83930; 83935; 83986; 84100; 84134; 84145; 84157; 84300; 84443; 84478; 84484; 84560; 85018; 85025; 85610; 85730; 86885; 86900; 86901; 87040; 87070; 87075; 87077; 87081; 87088; 87102; 87103; 87186; 87324; 87449; 88108; 88305; 89051; 92508; 92616; 93005; 93970; 94002; 94003; 94640; 94668; 94760; 97110; 97116; 97162; 97530; 97535; G0378; J0690; J0780; J0878; J1170; J1200; J1450; J1650; J1756; J1815; J1940; J2060; J2250; J2270; J2354; J2405; J2765; J2916; J2997; J3010; J3243; J3360; J3370; J3420; J3475; J3480; J3490; J7040; J7060; J7131; P9047; Q0163; Q9963; Q9967; Q9968